=== PATIENT | male | born 1990 | race Caucasian/White ===

== ENCOUNTER 2017-08-30 12:42 | Inpatient (IN) | payer OTHER ==
--- NOTE | 2017-08-30 11:59 | HP ---
[facility]ER[facility] Rehab Assess/Revision - Admission History Admitted to Rehab from: [facility] Date of Admission to Rehab: 08/30/2017 - Vital signs Vital Signs: NOTED; STABLE. - Findings Detox History & Physical reviewed: Yes Concur with findings: Yes Comments/Additional Findings: PATIENT'S MEDICAL / MEDICATION HISTORY REVIEWED PRIOR TO DISCHARGE FROM DETOX UNIT. PATIENT WAS DISCHARGED FROM DETOX UNIT TO BE TAKEN OVER TO REHAB UNIT IN STABLE MEDICAL CONDITION. Inpatient Rehab Admission - Initial Determination Are CD services needed?: Yes Free of communicable disease: Yes Not in need of hospitalization: Yes - Rehab Admission Criteria Previous failed treatment: Yes Comorbidities: Yes Patient is meeting Inpatient Rehab admission criteria:: Yes
[~2017-08-30 12:42] MED LIST: LOPERAMIDE HCL 2 MG CAPSULE PO PRN; MAG HYDROX/AL HYDROX/SIMETH 30 ML UNIT-DOSE CUP PO PRN; MAGNESIUM CITRATE 300 ML BOTTLE PO PRN; MAGNESIUM HYDROX 2400MG/30ML ORAL SUSPENSION 30 ML CUP PO PRN; MENTHOL/PHENOL 1 EACH UD MM PRN; P-EPHED 60MG/TRIPROLIDI 2.5MG TABLET PO PRN
--- NOTE | 2017-08-30 14:01 | HP ---
Psychiatrist Admission - Data Date of interview: 08/30/17 Admission source: 3N Identifying data: This is the second 5N inpatient rehabilitation admission for this 27 year old male who is a single without children, currently homeless, unemployed and supported on food stamps. Medical History: Hepatitis C, withdrawal-related seizures and history of surgeries : cleft palate as an and tendon repair in right middle finger. Smokes cigarettes 20 a day. On MMTP 200 mg po daily. Psychiatric History: Patient reports his first psychiatric contact was in his childhood, was diagnosed as ADHD, treated with adderall and ritalin, first psychiatric hospitalization at age of 16 following suicidal attempt(slashed wrist) and admitted to [facility] in [place], reports 5-6 subsequent( Robyn Fajardo, hospitalizations with most recent "few months ago" to [facility] for 2 weeks to address depressed mood., past treatment with a number of medications celexa, abilify, gabapentin, seroquel, wellbutrin. Non- compliant with medications and aftercare, has no taking any medivations except of Xanax, reports he has insomnia and feels "exhausted, I need some sleeping aid ". States was diagnosed with anxiety and depression. Physical/Sexual Abuse/Trauma History: Denies history of sexual, physical and verbal abuse. Vital Signs: Vital Signs - 24 hr 08/30/17 13:08 Temperature 98.2 F Pulse Rate 68 Respiratory 18 Rate Blood Pressure 119/63 Allergies/Adverse Reactions: Allergies Allergy/AdvReac Type Severity Reaction Status Date / Time No Known Allergies Allergy Verified 08/30/17 13:27 Date of last physical exam: 08/28/17 Concur with the findings of this exam: Yes - Substance Abuse/Tx History Hx Alcohol Use: Yes (daily use 1-1,5 pint of vodka) Hx Substance Use: Yes (ecstasy 1-3 times last month) Substance Use Type: Cocaine (crack 1-2 gr daily), Tranquilizers (klonopin/xanax up to 10 mg) Hx Substance Use Treatment: Yes (several detox, 5[facility], [facility]) Mental Status Exam - Mental Status Exam Alert and Oriented to: Time, Place, Person Cognitive Function: Grossly Intact Patient Appearance: Well Groomed Mood: Withdrawn Affect: Mood Congruent, Blunted, Constricted Patient Behavior: Appropriate, Cooperative Speech Pattern: Appropriate Voice Loudness: Normal Thought Process: Goal Oriented Thought Disorder: Not Present Hallucinations: Denies Suicidal Ideation: Denies Homicidal Ideation: Denies Insight/Judgement: Fair Sleep: Poorly, Difficulty falling asleep Appetite: Fair Muscle strength/Tone: Normal Gait/Station: Normal Psychiatric Findings - Problem List ([place] 1, 2,3) (1) Cocaine dependence Current Visit: No Status: Acute Qualifiers: Substance use status: uncomplicated Qualified Code(s): F14.20 - Cocaine dependence, uncomplicated (2) Drug-induced mood disorder Current Visit: No Status: Acute (3) Insomnia Current Visit: No Status: Acute Qualifiers: Insomnia type: unspecified Qualified Code(s): G47.00 - Insomnia, unspecified (4) Nicotine dependence Current Visit: No Status: Acute Qualifiers: Nicotine product type: cigarettes Substance use status: uncomplicated Qualified Code(s): F17.210 - Nicotine dependence, cigarettes, uncomplicated (5) Benzodiazepine dependence Current Visit: No Status: Chronic (6) CELIA (generalized anxiety disorder) Current Visit: No Status: Chronic (7) Methadone maintenance therapy patient Current Visit: No Status: Chronic Comment: 200 mg, dose pending verification (8) Methamphetamine abuse Current Visit: No Status: Chronic - Initial Treatment Plan Initial Treatment Plan: Discussed indications/properties with the patient of Elavil 25 mg po hs, he agreed to start, will add, monitor porgress as needed.
[2017-08-30] MEDS: THIAMINE HCL 100 MG TABLET (FP) PO SCH (21:59)
[2017-08-30] MEDS: AMITRIPTYLINE HCL 25 MG TABLET (FP) PO SCH (21:59)
[2017-08-30] MEDS ORDERED: MELATONIN 5 MG TABLETS PO PRN (22:00)
[2017-08-31] MEDS: METHADONE HCL 40 MG DISPERSABLE TABLET PO SCH (06:13)
[2017-08-31] MEDS: IBUPROFEN 400 MG TABLET (FP) PO PRN ×2 (06:18→17:33)
[2017-08-31] MEDS: ACETAMINOPHEN 325 MG TABLET (FP) PO PRN (09:01)
[2017-08-31] MEDS: PRENATAL VITAMINS W/ FOLIC ACID TABLET (FP) PO SCH (09:02)
[2017-08-31] MEDS: NICOTINE POLACRILEX 2 MG GUM BUC PRN ×3 (09:03→21:46)
[2017-08-31] MEDS: NICOTINE 21 MG/24 HOURS TOPICAL PATCH TD SCH (09:05)
[2017-08-31] MEDS: guaiFENesin/D-METHORPHAN HB 10 ML UNIT-DOSE CUPS PO PRN (11:58)
[2017-08-31] MEDS: THIAMINE HCL 100 MG TABLET (FP) PO SCH (21:45)
[2017-08-31] MEDS: AMITRIPTYLINE HCL 25 MG TABLET (FP) PO SCH (21:45)
[2017-09-01] MEDS: METHADONE HCL 40 MG DISPERSABLE TABLET PO SCH (06:19)
[2017-09-01] MEDS: NICOTINE POLACRILEX 2 MG GUM BUC PRN ×5 (06:20→19:52)
[2017-09-01] MEDS: PRENATAL VITAMINS W/ FOLIC ACID TABLET (FP) PO SCH (09:27)
[2017-09-01] MEDS: NICOTINE 21 MG/24 HOURS TOPICAL PATCH TD SCH (09:27)
[2017-09-01] MEDS: IBUPROFEN 400 MG TABLET (FP) PO PRN (09:28)
[2017-09-01] MEDS: ACETAMINOPHEN 325 MG TABLET (FP) PO PRN (13:53)
[2017-09-01] MEDS: AMITRIPTYLINE HCL 25 MG TABLET (FP) PO SCH (21:46)
[2017-09-01] MEDS: THIAMINE HCL 100 MG TABLET (FP) PO SCH (21:46)
[2017-09-02] MEDS: METHADONE HCL 40 MG DISPERSABLE TABLET PO SCH (06:07)
[2017-09-02] MEDS: PRENATAL VITAMINS W/ FOLIC ACID TABLET (FP) PO SCH (11:00)
[2017-09-02] MEDS: NICOTINE 21 MG/24 HOURS TOPICAL PATCH TD SCH (11:00)
[2017-09-02] MEDS: NICOTINE POLACRILEX 2 MG GUM BUC PRN ×3 (11:03→22:00)
[2017-09-02] MEDS: IBUPROFEN 400 MG TABLET (FP) PO PRN (14:32)
[2017-09-02] MEDS: guaiFENesin/D-METHORPHAN HB 10 ML UNIT-DOSE CUPS PO PRN ×2 (14:34→22:00)
--- NOTE | 2017-09-02 15:34 | PN ---
[facility] Progress Note Note: Patient reports a partial response to Elavil 25 mg po hs, no side-effects reported, will increase to 50 mg po hs, continue to monitor progress.
[2017-09-02] MEDS: THIAMINE HCL 100 MG TABLET (FP) PO SCH (21:58)
[2017-09-02] MEDS: AMITRIPTYLINE HCL 25 MG TABLET (FP) PO SCH (21:58)
[2017-09-03] MEDS: METHADONE HCL 40 MG DISPERSABLE TABLET PO SCH (06:20)
[2017-09-03] MEDS: NICOTINE POLACRILEX 2 MG GUM BUC PRN ×3 (06:20→21:51)
[2017-09-03] MEDS: PRENATAL VITAMINS W/ FOLIC ACID TABLET (FP) PO SCH (10:29)
[2017-09-03] MEDS: NICOTINE 21 MG/24 HOURS TOPICAL PATCH TD SCH (10:29)
[2017-09-03] MEDS: IBUPROFEN 400 MG TABLET (FP) PO PRN ×2 (10:31→23:46)
--- NOTE | 2017-09-03 15:38 | PN ---
[facility] Progress Note Note: Patient c/o of nasal congestion and cough. Denies CP, SOB, vertigo. Vital Signs Temperature 98.2 F 09/03/17 06:52 Pulse Rate 62 09/03/17 06:52 Respiratory Rate 18 09/03/17 06:52 Blood Pressure 134/74 09/03/17 06:52 O2 Sat by Pulse Oximetry (%) Patient AOX 3, in no apparent distress + rhinorrhea + cough Lungs clear through out no adventitious breath sound Plan: increase fluids Flonase QD PRN Acetaminophen PRN Guafinessin DM PRN Continue to monitor
[2017-09-03] MEDS ORDERED: FLUTICASONE PROP 0.05% 16 GM NASAL SPRAY NS SCH (15:45)
[2017-09-03] MEDS ORDERED: COLLOIDAL OATMEAL 1 BAR EACH TP PRN (15:56)
[2017-09-03] MEDS: THIAMINE HCL 100 MG TABLET (FP) PO SCH (21:48)
[2017-09-03] MEDS: AMITRIPTYLINE HCL 25 MG TABLET (FP) PO SCH (21:48)
[2017-09-03] MEDS: guaiFENesin/D-METHORPHAN HB 10 ML UNIT-DOSE CUPS PO PRN (21:51)
[2017-09-04] MEDS: METHADONE HCL 40 MG DISPERSABLE TABLET PO SCH (06:16)
[2017-09-04] MEDS: NICOTINE POLACRILEX 2 MG GUM BUC PRN ×4 (06:27→22:20)
[2017-09-04] MEDS ORDERED: FLUTICASONE PROP 0.05% 16 GM NASAL SPRAY NS SCH (10:00)
[2017-09-04] MEDS: PRENATAL VITAMINS W/ FOLIC ACID TABLET (FP) PO SCH (10:32)
[2017-09-04] MEDS: NICOTINE 21 MG/24 HOURS TOPICAL PATCH TD SCH (10:32)
[2017-09-04] MEDS ORDERED: PT OWN MED DRAWER 7, Y5N ONE (10:41)
[2017-09-04] MEDS: MOMETASONE FUROATE 110 MCG/IH INHALER IH SCH ×2 (14:00→22:22)
[2017-09-04] MEDS: THIAMINE HCL 100 MG TABLET (FP) PO SCH (21:41)
[2017-09-04] MEDS: AMITRIPTYLINE HCL 25 MG TABLET (FP) PO SCH (21:41)
[2017-09-05] MEDS: NICOTINE POLACRILEX 2 MG GUM BUC PRN ×4 (06:16→22:11)
[2017-09-05] MEDS: METHADONE HCL 40 MG DISPERSABLE TABLET PO SCH (06:16)
[2017-09-05] MEDS: MOMETASONE FUROATE 110 MCG/IH INHALER IH SCH (10:41)
[2017-09-05] MEDS: PRENATAL VITAMINS W/ FOLIC ACID TABLET (FP) PO SCH (10:42)
[2017-09-05] MEDS: NICOTINE 21 MG/24 HOURS TOPICAL PATCH TD SCH (10:42)
[2017-09-05] MEDS: IBUPROFEN 400 MG TABLET (FP) PO PRN (14:12)
[2017-09-05] MEDS: AMITRIPTYLINE HCL 25 MG TABLET (FP) PO SCH (22:11)
[2017-09-05] MEDS: THIAMINE HCL 100 MG TABLET (FP) PO SCH (22:11)
[2017-09-06] MEDS: NICOTINE POLACRILEX 2 MG GUM BUC PRN ×4 (06:09→21:49)
[2017-09-06] MEDS: METHADONE HCL 40 MG DISPERSABLE TABLET PO SCH (06:10)
[2017-09-06] MEDS: NICOTINE 21 MG/24 HOURS TOPICAL PATCH TD SCH (10:17)
[2017-09-06] MEDS: PRENATAL VITAMINS W/ FOLIC ACID TABLET (FP) PO SCH (10:17)
[2017-09-06] MEDS: MOMETASONE FUROATE 110 MCG/IH INHALER IH SCH (10:17)
[2017-09-06] MEDS: IBUPROFEN 400 MG TABLET (FP) PO PRN (17:24)
[2017-09-06] MEDS: AMITRIPTYLINE HCL 25 MG TABLET (FP) PO SCH (21:49)
[2017-09-06] MEDS: THIAMINE HCL 100 MG TABLET (FP) PO SCH (21:49)
[2017-09-07] MEDS: METHADONE HCL 40 MG DISPERSABLE TABLET PO SCH (06:14)
[2017-09-07] MEDS: NICOTINE POLACRILEX 2 MG GUM BUC PRN ×4 (06:15→20:05)
[2017-09-07] MEDS: MOMETASONE FUROATE 110 MCG/IH INHALER IH SCH (10:20)
[2017-09-07] MEDS: PRENATAL VITAMINS W/ FOLIC ACID TABLET (FP) PO SCH (10:20)
[2017-09-07] MEDS: NICOTINE 21 MG/24 HOURS TOPICAL PATCH TD SCH (10:21)
[2017-09-07] MEDS: ACETAMINOPHEN 325 MG TABLET (FP) PO PRN (17:42)
[2017-09-07] MEDS: THIAMINE HCL 100 MG TABLET (FP) PO SCH (21:47)
[2017-09-07] MEDS: AMITRIPTYLINE HCL 25 MG TABLET (FP) PO SCH (21:47)
[2017-09-08] MEDS: NICOTINE POLACRILEX 2 MG GUM BUC PRN ×3 (06:10→21:51)
[2017-09-08] MEDS: METHADONE HCL 40 MG DISPERSABLE TABLET PO SCH (06:10)
[2017-09-08] MEDS: MOMETASONE FUROATE 110 MCG/IH INHALER IH SCH (10:21)
[2017-09-08] MEDS: NICOTINE 21 MG/24 HOURS TOPICAL PATCH TD SCH ×2 (10:21→10:22)
[2017-09-08] MEDS: PRENATAL VITAMINS W/ FOLIC ACID TABLET (FP) PO SCH (10:22)
[2017-09-08] MEDS: AMITRIPTYLINE HCL 25 MG TABLET (FP) PO SCH (21:49)
[2017-09-08] MEDS: THIAMINE HCL 100 MG TABLET (FP) PO SCH (21:50)
[2017-09-08] MEDS: IBUPROFEN 400 MG TABLET (FP) PO PRN (21:51)
[2017-09-09] MEDS: METHADONE HCL 40 MG DISPERSABLE TABLET PO SCH (06:10)
[2017-09-09] MEDS: NICOTINE POLACRILEX 2 MG GUM BUC PRN ×3 (06:10→21:57)
[2017-09-09] MEDS: MOMETASONE FUROATE 110 MCG/IH INHALER IH SCH (09:37)
[2017-09-09] MEDS: NICOTINE 21 MG/24 HOURS TOPICAL PATCH TD SCH (09:38)
[2017-09-09] MEDS: PRENATAL VITAMINS W/ FOLIC ACID TABLET (FP) PO SCH (09:40)
[2017-09-09] MEDS: ACETAMINOPHEN 325 MG TABLET (FP) PO PRN (15:50)
[2017-09-09] MEDS: AMITRIPTYLINE HCL 25 MG TABLET (FP) PO SCH (21:55)
[2017-09-09] MEDS: THIAMINE HCL 100 MG TABLET (FP) PO SCH (21:56)
[2017-09-10] MEDS: METHADONE HCL 40 MG DISPERSABLE TABLET PO SCH (06:05)
[2017-09-10] MEDS: NICOTINE POLACRILEX 2 MG GUM BUC PRN ×4 (06:06→21:41)
[2017-09-10] MEDS: MOMETASONE FUROATE 110 MCG/IH INHALER IH SCH (10:34)
[2017-09-10] MEDS: NICOTINE 21 MG/24 HOURS TOPICAL PATCH TD SCH (10:35)
[2017-09-10] MEDS: PRENATAL VITAMINS W/ FOLIC ACID TABLET (FP) PO SCH (10:35)
[2017-09-10] MEDS: THIAMINE HCL 100 MG TABLET (FP) PO SCH (21:40)
[2017-09-10] MEDS: AMITRIPTYLINE HCL 25 MG TABLET (FP) PO SCH (21:40)
[2017-09-11] MEDS: METHADONE HCL 40 MG DISPERSABLE TABLET PO SCH (06:22)
[2017-09-11] MEDS: NICOTINE POLACRILEX 2 MG GUM BUC PRN ×4 (06:23→21:44)
[2017-09-11] MEDS: PRENATAL VITAMINS W/ FOLIC ACID TABLET (FP) PO SCH (09:35)
[2017-09-11] MEDS: MOMETASONE FUROATE 110 MCG/IH INHALER IH SCH (09:35)
[2017-09-11] MEDS: NICOTINE 21 MG/24 HOURS TOPICAL PATCH TD SCH (09:41)
[2017-09-11] MEDS: AMITRIPTYLINE HCL 25 MG TABLET (FP) PO SCH (21:44)
[2017-09-11] MEDS: THIAMINE HCL 100 MG TABLET (FP) PO SCH (21:44)
[2017-09-12] MEDS: METHADONE HCL 40 MG DISPERSABLE TABLET PO SCH (06:33)
[2017-09-12] MEDS: NICOTINE POLACRILEX 2 MG GUM BUC PRN ×4 (06:34→22:07)
[2017-09-12] MEDS: PRENATAL VITAMINS W/ FOLIC ACID TABLET (FP) PO SCH (09:33)
[2017-09-12] MEDS: NICOTINE 21 MG/24 HOURS TOPICAL PATCH TD SCH (09:33)
[2017-09-12] MEDS: MOMETASONE FUROATE 110 MCG/IH INHALER IH SCH (09:34)
[2017-09-12] MEDS: THIAMINE HCL 100 MG TABLET (FP) PO SCH (22:06)
[2017-09-12] MEDS: AMITRIPTYLINE HCL 25 MG TABLET (FP) PO SCH (22:07)
[2017-09-13] MEDS ORDERED: METHADONE HCL 40 MG DISPERSABLE TABLET PO ONE (06:23)
[2017-09-13] MEDS ORDERED: METHADONE PO ONE (06:30)
[2017-09-13] MEDS: NICOTINE POLACRILEX 2 MG GUM BUC PRN ×2 (06:37→10:13)
[2017-09-13 07:12] VITALS: BP 122/74; PULSE 73; TEMP 97.8
[2017-09-13] MEDS: NICOTINE 21 MG/24 HOURS TOPICAL PATCH TD SCH (10:11)
[2017-09-13] MEDS: PRENATAL VITAMINS W/ FOLIC ACID TABLET (FP) PO SCH (10:12)
[2017-09-13] MEDS: IBUPROFEN 400 MG TABLET (FP) PO PRN (10:12)
[2017-09-13] MEDS: MOMETASONE FUROATE 110 MCG/IH INHALER IH SCH (10:13)
--- NOTE | 2017-09-13 10:23 | PN ---
Psychiatric Progress Note Vital Signs: Vital Signs Period Temp Pulse Resp BP Sys/Mustafa Pulse Ox Last 24 Hr 97.8 F 73 16-16 122/74 Date of Session: 09/13/17 Chief Complaint:: discharge visit HPI: Patient has addressed cocaine, benzo, opioid, methamphetamine use comorbid CELIA, drug induced mood siorder, insomnia. Current Medications: Active Medications Generic Name Dose Route Start Last Admin Trade Name Freq PRN Reason Stop Dose Admin Al Hydroxide/Mg Hydroxide 30 ml 08/30/17 11:55 Mylanta Oral Suspension - PO Q6H PRN DYSPEPSIA Amitriptyline HCl 50 mg 09/02/17 22:00 09/12/17 22:07 Elavil - PO Not Given HS CASANDRA Colloidal Oatmeal 1 applic 09/03/17 15:56 09/04/17 21:42 Aveeno Soap - TP 1 applic DAILY PRN Administration HYGEINE Eucalyptus/Menthol/Phenol/Sorbitol 1 each 08/30/17 11:55 Cepastat Lozenge - MM Q4H PRN SORE THROAT Guaifenesin 10 ml 08/30/17 11:55 09/03/17 21:51 Robitussin Dm - PO 10 ml Q6H PRN Administration COUGH Ibuprofen 400 mg 08/30/17 11:55 09/13/17 10:12 Motrin - PO 400 mg Q6H PRN Administration Pain Level 4-6 Loperamide HCl 4 mg 08/30/17 11:55 Imodium - PO Q6H PRN DIARRHEA Magnesium Citrate 300 ml 08/30/17 11:55 Citroma - PO Q48H PRN CONSTIPATION Magnesium Hydroxide 30 ml 08/30/17 11:55 Milk Of Magnesia - PO DAILY PRN CONSTIPATION Melatonin 5 mg 08/30/17 22:00 Melatonin PO HS PRN INSOMNIA Mometasone Furoate 1 puff 09/04/17 10:00 09/13/17 10:13 Asmanex 110mcg - IH 1 puff DAILY CASANDRA Administration Nicotine 21 mg 08/31/17 10:00 09/13/17 10:11 Nicoderm Patch - TD Not Given DAILY CASANDRA Nicotine Polacrilex 2 mg 08/30/17 11:55 09/13/17 10:13 Nicorette Gum - BUC 2 mg Q2H PRN Administration NICOTINE REPLACEMENT RX Multivit/Folic Acid/Iron 1 tab 08/31/17 10:00 09/13/17 10:12 Vitamins (Sjr) - PO 1 tab DAILY CASANDRA Administration Pseudoephedrine/Triprolidine 1 combo 08/30/17 11:55 Actifed - PO TID PRN NASAL CONGESTION Thiamine HCl 100 mg 08/30/17 22:00 09/12/17 22:06 Vitamin B1 - PO 100 mg HS CASANDRA Administration Current Side Effect: No Lab tests ordered: No Lab tests reviewed: Yes Provider note:: Patient has completed today this program and met his identified goals, will continue to address his issues at [facility], hegained insights into importance of changning attitudes and utilize all supports availbal to prevent relapses, patient responded well to medication management, his sleep is improved and he is less anxious, no side-effects reported, script for Elavil 50 mg po hs provided, stable for discharge today. Total face to face time:: 25 Mental Status Exam - Mental Status Exam Alert and Oriented to: Time, Place, Person Cognitive Function: Good Patient Appearance: Well Groomed Mood: Hopeful Affect: Appropriate, Mood Congruent Patient Behavior: Appropriate, Cooperative Speech Pattern: Clear, Appropriate Voice Loudness: Normal Thought Process: Intact, Goal Oriented Thought Disorder: Not Present Hallucinations: Denies Suicidal Ideation: Denies Homicidal Ideation: Denies Insight/Judgement: Fair Sleep: Well Appetite: Good Muscle strength/Tone: Normal Gait/Station: Normal Psychiatric Treatment Plan - Problem List (1) Cocaine dependence Current Visit: No Qualifiers: Substance use status: uncomplicated Qualified Code(s): F14.20 - Cocaine dependence, uncomplicated (2) Drug-induced mood disorder Current Visit: No (3) Insomnia Current Visit: No Qualifiers: Insomnia type: unspecified Qualified Code(s): G47.00 - Insomnia, unspecified (4) Nicotine dependence Current Visit: No Qualifiers: Nicotine product type: cigarettes Substance use status: uncomplicated Qualified Code(s): F17.210 - Nicotine dependence, cigarettes, uncomplicated (5) Benzodiazepine dependence Current Visit: No (6) CELIA (generalized anxiety disorder) Current Visit: No (7) Methadone maintenance therapy patient Current Visit: No Comment: 200 mg, dose pending verification (8) Methamphetamine abuse Current Visit: No
== END 2017-09-13 11:05 | disposition home or self-care (01) | DRG 772 ==
LOC: YASAS 12:42 → Y5N 12:43
PROVIDERS: ADMIT Psychiatry & Neurology Psychiatry; ATTEND Psychiatry & Neurology Psychiatry
PROC: HZ42ZZZ Group Counseling for Substance Abuse Treatment, Cognitive-Behavioral (ICD-10-PCS; principal; 2017-08-30)
DX: F11.20 Opioid dependence, uncomplicated (principal); F13.20 Sedative, hypnotic or anxiolytic dependence, uncomplicated; F14.20 Cocaine dependence, uncomplicated; F15.10 Other stimulant abuse, uncomplicated; F41.1 Generalized anxiety disorder; F19.24 Other psychoactive substance dependence with psychoactive substance-induced mood disorder; G47.00 Insomnia, unspecified

== ENCOUNTER 2018-06-28 10:23 | Inpatient (IN) | payer OTHER ==
[2018-06-28 11:38] VITALS: BMI 23.3
--- NOTE | 2018-06-28 12:59 | HP ---
"CIWA Score Nausea/Vomitin Muscle Tremors: 4-Moderate,w/Arms Extend Anxiety: 4-Mod. Anxious/Guarded Agitation: 2 Paroxysmal Sweats: 1-Minimal Palms Moist Orientation: 0-Oriented Tacttile Disturbances: 1-Very Mild Itch/Numbness Auditory Disturbances: 0-None Visual Disturbances: 0-None Headache: 1-Very Mild CIWA-Ar Total Score: 15 - Admission Criteria OASAS Guidelines: Admission for Medically Managed Detox: Requires at least one of the followin. CIWA greater than 12 2. Seizures within the past 24 hours 3. Delirium tremens within the past 24 hours 4. Hallucinations within the past 24 hours 5. Acute intervention needed for co occurring medical disorder 6. Acute intervention needed for co occurring psychiatric disorder 7. Severe withdrawal that cannot be handled at a lower level of care (continued vomiting, continued diarrhea, abnormal vital signs) requiring intravenous medication and/or fluids 8. Patient presents the following: CIWA greater than 12 Admission Criteria Met: Admission criteria met Admission ROS [facility] Chief Complaint: I have to do this for me, and the baby, my little girl. Allergies/Adverse Reactions: Allergies Allergy/AdvReac Type Severity Reaction Status Date / Time No Known Allergies Allergy Verified 06/28/18 13:36 History of Present Illness: 28 yo gentleman here for detox from alcohol/benzos - alternates depending on what he can get. History of seizure several days ago. His girlfriend is seven months with his first child. He was last here in 2017 and states he has not been in detox since then. History of black outs. Of note is his left hand. Patient states he has had this problem for several months and no one has diagnosed it's cause. He went to [place] ED in February - had blisters on his fingers - did not know what it was - thought trejo - they were lanced and he gave patient antibiotics - a five day course of zithromax - the fingers got a bit better and then flared up as blisters again - patient drains them with a sterilized sewing needle - now has bloody/oozy areas on his index finger, thumb and middle finger - sometimes ring finger and palm. The hand is sore, painful, gets swollen on and off - he has not followed up anywhere. Per NASREEN was last prescribed alprazolam 04/17/19: Search Terms: david galeana, 1990 Search Date: 06/28/2018 01:15:53 PM The Drug Utilization Report below displays all of the controlled substance prescriptions, if any, that your patient has filled in the last twelve months. The information displayed on this report is compiled from pharmacy submissions to the Department, and accurately reflects the information as submitted by the pharmacies. This report was requested by: Stephanie Tuttle | Reference #: [id number] Others' Prescriptions Patient Name: David Galeana Date: 1990 Address: [address] [place] [address] Sex: Male Rx Written Rx Dispensed Drug Quantity Days Supply Prescriber Name 04/17/2018 04/17/2018 alprazolam 2 mg tablet 30 15 MD Sabina , Anton 12/19/2017 12/19/2017 alprazolam 2 mg tablet 60 30 MD Sabina , Anton 11/14/2017 11/14/2017 clonazepam 2 mg tablet 60 30 MD Sabina , Anton 09/13/2017 09/13/2017 alprazolam 2 mg tablet 60 30 MD Sabina , Anton 08/13/2017 08/13/2017 acetaminophen-cod #3 tablet 24 5 MD Muhammad Mario Patient Name: David Galeana Date: 1990 Address: [address] [place] [address] Sex: Male Rx Written Rx Dispensed Drug Quantity Days Supply Prescriber Name 03/20/2018 03/20/2018 alprazolam 2 mg tablet 60 30 MD Sabina , Anton 02/14/2018 02/17/2018 alprazolam 2 mg tablet 60 30 MD Sabina , Anton 01/21/2018 01/21/2018 alprazolam 2 mg tablet 50 25 MD Sabina , Anton 01/17/2018 01/17/2018 alprazolam 2 mg tablet 10 5 ColantoniElijah fuentes 08/12/2017 08/12/2017 alprazolam 2 mg tablet 60 30 MD Sabina , Anton 07/15/2017 07/15/2017 clonazepam 2 mg tablet 60 30 MD Muhammad Mario Patient Name: David Galeana Date: 1990 Address: [address] [place] [address] Sex: Male Rx Written Rx Dispensed Drug Quantity Days Supply Prescriber Name 10/04/2017 10/07/2017 alprazolam 1 mg tablet 21 7 Ashlyn Ferrer) Exam Limitations: No Limitations - Ebola screening Have you traveled outside of the country in the last 21 days: No (N) Have you had contact with anyone from an Ebola affected area: No Have you been sick,other than usual withdrawal symptoms: No Do you have a fever: No - Review of Systems Constitutional: Loss of Appetite, Malaise, Night Sweats, Changes in sleep, Weakness EENT: reports: Blurred Vision Respiratory: reports: No Symptoms reported Cardiac: reports: No Symptoms Reported GI: reports: Nausea, Poor Appetite, Abdominal cramping : reports: No Symptoms Reported Musculoskeletal: reports: No Symptoms Reported Integumentary: reports: Other (left hand oozing open blistered areas on hand) Neuro: reports: Headache, Tremors Endocrine: reports: No Symptoms Reported Hematology: reports: No Symptoms Reported Psychiatric: reports: Judgement Intact, Mood/Affect Appropiate, Orientated x3, Anxious Other Systems: Reviewed and Negative Patient History - Patient Medical History Hx Anemia: No Hx Asthma: No Hx Chronic Obstructive Pulmonary Disease (COPD): No Hx Cancer: No Hx Cardiac Disorders: No Hx Congestive Heart Failure: No Hx Hypertension: No Hx Hypercholesterolemia: No Hx Pacemaker: No HX Cerebrovascular Accident: No Hx Seizures: Yes (drug related - 06/24/18) Hx Dementia: No Hx Diabetes: No Hx Gastrointestinal Disorders: No Hx Liver Disease: Yes (Hep C ) Hx Genitourinary Disorders: No Hx Sexually Transmitted Disorders: No Hx Renal Disease (ESRD): No Hx Thyroid Disease: No Hx Human Immunodeficiency Virus (HIV): No Hx Hepatitis C: Yes (untreated) Hx Depression: Yes (no meds) Hx Suicide Attempt: Yes (cut wrist 02/2019; also age 17) Hx Bipolar Disorder: No Hx Schizophrenia: No - Patient Surgical History Past Surgical History: Yes Hx Neurologic Surgery: No Hx Cataract Extraction: No Hx Cardiac Surgery: No Hx Lung Surgery: No Hx Breast Surgery: No Hx Breast Biopsy: No Hx Abdominal Surgery: No Hx Appendectomy: No Hx Cholecystectomy: No Hx Genitourinary Surgery: No Hx Section: No Hx Orthopedic Surgery: Yes (TENDON REPAIR ON RT MIDDLE FINGER) Other Surgical History: Surgery for cleft lip as . Anesthesia Reaction: No - PPD History Previous Implant?: Yes Documented Results: Negative w/proof Implanted On Prior [facility] Admission?: Yes Date: 08/29/17 Results: 0 mm. PPD to be Administered?: No - Reproductive History Patient is a Female of Child Bearing Age (11 -55 yrs old): No (male) - Smoking Cessation Smoking history: Current every day smoker Have you smoked in the past 12 months: Yes Aproximately how many cigarettes per day: 20 Cigars Per Day: 0 Hx Chewing Tobacco Use: No Initiated information on smoking cessation: Yes 'Breaking Loose' booklet given: 06/28/18 (give on floor) - Substance & Tx. History Hx Alcohol Use: Yes Hx Substance Use: Yes Substance Use Type: Alcohol, Cocaine, Heroin Hx Substance Use Treatment: Yes (detox, rehab, methadone ) - Substances Abused alcohol Route: Oral Frequency: Daily Amount used: 1/2 pint, Age of first use: 23 Date of Last Use: 06/27/18 alprazolam Route: Oral Frequency: Daily Amount used: 12 mg Age of first use: 17 Date of Last Use: 06/27/18 cocaine Route: Smoking Frequency: 3-6 times per week Amount used: 5 dimes of crack Age of first use: 16 Date of Last Use: 06/26/18 Family Disease History - Family Disease History Family Disease History: Other: Father (unknown, etoh), Mother (alive, Hyperlipidemia ), Brother (alive, alcohol , hep c) Admission Physical Exam S - Vital Signs Vital Signs: Vital Signs - 24 hr 06/28/18 11:31 Temperature 96 F L Pulse Rate 58 L Respiratory 18 Rate Blood Pressure 102/78 - Physical General Appearance: Yes: Nourished, Appropriately Dressed, Moderate Distress, Tremorous, Irritable, Anxious HEENTM: Yes: Hearing grossly Normal, Normocephalic, Normal Voice, Pharynx Normal Respiratory: Yes: Normal Breath Sounds, No Respiratory Distress Neck: Yes: No masses,lesions,Nodules Breast: Yes: Breast Exam Deferred Cardiology: Yes: Regular Rhythm, Regular Rate Abdominal: Yes: Flat Genitourinary: Yes: Frequency Back: Yes: Normal Inspection Musculoskeletal: Yes: full range of Motion, Gait Steady, Other (left hand with some functional limitation due to hx of tendon injury) Extremities: Yes: Normal Inspection, Normal Range of Motion, Non-Tender Neurological: Yes: Fully Oriented, Alert, Motor Strength 5/5, Normal Mood/Affect , Normal Response, Numbness Integumentary: Yes: Normal Color, Warm, Other (left hand: bloody/oozy open areas on his index finger, thumb and middle finger -sometimes ring finger and palm) Lymphatic: Yes: Within Normal Limits - Diagnostic (1) Alcohol dependence with uncomplicated withdrawal Current Visit: Yes Status: Chronic (2) Sedative, hypnotic or anxiolytic abuse, uncomplicated Current Visit: Yes Status: Chronic (3) Cocaine dependence Current Visit: Yes Status: Acute Qualifiers: Substance use status: uncomplicated Qualified Code(s): F14.20 - Cocaine dependence, uncomplicated (4) Dehydration Current Visit: Yes Status: Acute (5) Nicotine dependence Current Visit: Yes Status: Acute Qualifiers: Nicotine product type: cigarettes Substance use status: uncomplicated Qualified Code(s): F17.210 - Nicotine dependence, cigarettes, uncomplicated (6) Weight loss Current Visit: Yes Status: Acute (7) Hepatitis C Current Visit: Yes Status: Chronic Qualifiers: Viral hepatitis chronicity: chronic Hepatic coma status: without hepatic coma Qualified Code(s): B18.2 - Chronic viral hepatitis C (8) Methadone maintenance therapy patient Current Visit: Yes Status: Chronic Comment: 200 mg, [facility] [phone] (9) Blister of fingers, infected Current Visit: Yes Status: Chronic Qualifiers: Encounter type: initial encounter Qualified Code(s): S60.429A - Blister ( nonthermal) of unspecified finger, initial encounter; L08.9 - Local infection of the skin and subcutaneous tissue, unspecified Cleared for Admission [facility] - Detox or Rehab S Level of Care: Medically Managed Detox Regimen/Protocol: Valium S Breath Alcohol Content Breath Alcohol Content: 0 Urine Drug Screen - Results Drug Screen Negative: No Urine Drug Screen Results: ANETTE-Cocaine, BZO-Benzodiazepines, MTD-Methadone Inpatient Rehab Admission - Rehab Decision to Admit Inpatient rehab admission?: No"
[2018-06-28] MEDS ORDERED: MENTHOL/PHENOL 1 EACH UD MM PRN (13:21)
[2018-06-28] MEDS ORDERED: guaiFENesin/D-METHORPHAN HB 10 ML UNIT-DOSE CUPS PO PRN (13:21)
[2018-06-28] MEDS ORDERED: MAG HYDROX/AL HYDROX/SIMETH 30 ML UNIT-DOSE CUP PO PRN (13:21)
[2018-06-28] MEDS ORDERED: MAGNESIUM HYDROX 2400MG/30ML ORAL SUSPENSION 30 ML CUP PO PRN (13:21)
[2018-06-28] MEDS ORDERED: LOPERAMIDE HCL 2 MG CAPSULE PO PRN (13:21)
[2018-06-28] MEDS ORDERED: IBUPROFEN 400 MG TABLET (FP) PO PRN (13:21)
[2018-06-28] MEDS ORDERED: ACETAMINOPHEN 325 MG TABLET (FP) PO PRN (13:21)
[2018-06-28] MEDS ORDERED: P-EPHED 60MG/TRIPROLIDI 2.5MG TABLET PO PRN (13:21)
[2018-06-28] MEDS ORDERED: MAGNESIUM CITRATE 300 ML BOTTLE PO PRN (13:21)
[2018-06-28] MEDS ORDERED: diazePAM 5 MG TABLET PO ONE (14:15)
[2018-06-28] MEDS: SILVER SULFADIAZINE 1% TOP CREAM 50 GM JAR TP SCH (15:40)
[2018-06-28] MEDS: NICOTINE POLACRILEX 4 MG GUM BUC PRN ×3 (17:00→22:31)
[2018-06-28] MEDS: diazePAM 5 MG TABLET PO PRN (20:14)
[2018-06-28] MEDS: THIAMINE HCL 100 MG TABLET (FP) PO SCH (22:30)
[2018-06-28] MEDS: diazePAM 5 MG TABLET PO SCH (22:30)
[2018-06-29] MEDS: diazePAM 5 MG TABLET PO PRN ×4 (03:31→20:26)
[2018-06-29] MEDS: diazePAM 5 MG TABLET PO SCH ×3 (05:48→22:12)
[2018-06-29] MEDS ORDERED: METHADONE HCL 40 MG DISPERSABLE TABLET PO ONE (06:00)
[2018-06-29] MEDS ORDERED: METHADONE HCL 10 MG TABLET PO SCH (06:00)
[2018-06-29] MEDS: PRENATAL VITAMINS W/ FOLIC ACID TABLET (FP) PO SCH (09:22)
[2018-06-29] MEDS: SILVER SULFADIAZINE 1% TOP CREAM 50 GM JAR TP SCH (09:24)
[2018-06-29] MEDS: NICOTINE POLACRILEX 4 MG GUM BUC PRN ×5 (09:27→22:43)
--- NOTE | 2018-06-29 09:46 | CONSULT ---
[facility] Psychiatric Consult - Data Date of interview: 06/29/18 Admission source: Self-referred Identifying data: Mr Galeana is a 28 years old smarried male, unemployedreceiving food stamp, domiciled
[2018-06-29 10:23] LABS: HEMATOCRIT 33.1 % (35.4-49); HEMOGLOBIN 11.5 GM/dL (11.7-16.9); MCH 29.6 pg (25.7-33.7); MCHC 34.6 g/dl (32.0-35.9); MEAN CELL VOLUME 85.6 fl (80-96); PLATELET COUNT 171 K/MM3 (134-434); RBC 3.87 M/mm3 (4.00-5.60); RDW 12.9 % (11.9-15.9); WHITE BLOOD COUNT 5.3 K/mm3 (4.0-10.0)
[2018-06-29 10:26] LABS: ALK PHOS 82 U/L (45-117); ANION GAP 7 MMOL/L (8-16); BILIRUBIN,TOTAL 0.3 mg/dL (0.2-1); BLOOD UREA NITROGEN 20 mg/dL (7-18); CALCIUM 8.8 mg/dL (8.5-10.1); CHLORIDE 105 mmol/L (98-107); CO2 30 mmol/L (21-32); CREATININE 0.9 mg/dL (0.55-1.3); GLUCOSE,RANDOM 124 mg/dL (74-106); POTASSIUM 4.3 mmol/L (3.5-5.1); SGOT/AST 220 U/L (15-37); SGPT/ALT 175 U/L (13-61); SODIUM 141 mmol/L (136-145); TOT PROT 5.7 g/dl (6.4-8.2)
--- NOTE | 2018-06-29 14:21 | PN ---
S Progress Note Note: Patient was very sedated and could not stay awake long enough for an appropriate interview. Reconsult when patient is more appropriate
--- NOTE | 2018-06-29 16:11 | PN ---
S CIWA - CIWA Score Nausea/Vomitin-Mild Nausea/No Vomiting Muscle Tremors: 3 Anxiety: 2 Agitation: 3 Paroxysmal Sweats: 1-Minimal Palms Moist Orientation: 1-Uncertain about Date Tacttile Disturbances: 0-None Auditory Disturbances: 0-None Visual Disturbances: 0-None Headache: 1-Very Mild CIWA-Ar Total Score: 12 [facility] Progress Note (SOAP) Subjective: tremor sweating irritable agitative left hand skin peeling after injured x 3 -4 months ago treated at ER patient refuses wrap the hand after silver cream discuss the benefits of wrap the hand with cling avoid irritation keep dressing clean and dry Objective: 06/29/18 16:10 Vital Signs Temperature 96.5 F L 06/29/18 13:38 Pulse Rate 60 06/29/18 13:38 Respiratory Rate 18 06/29/18 13:38 Blood Pressure 121/62 06/29/18 13:38 O2 Sat by Pulse Oximetry (%) Laboratory Last Values WBC 5.3 K/mm3 (4.0-10.0) 06/29/18 07:45 RBC 3.87 M/mm3 (4.00-5.60) L 06/29/18 07:45 Hgb 11.5 GM/dL (11.7-16.9) L 06/29/18 07:45 Hct 33.1 % (35.4-49) L 06/29/18 07:45 MCV 85.6 fl (80-96) 06/29/18 07:45 MCH 29.6 pg (25.7-33.7) 06/29/18 07:45 MCHC 34.6 g/dl (32.0-35.9) 06/29/18 07:45 RDW 12.9 % (11.9-15.9) 06/29/18 07:45 Plt Count 171 K/MM3 (134-434) D 06/29/18 07:45 MPV 10.0 fl (7.5-11.1) 06/29/18 07:45 Sodium 141 mmol/L (136-145) 06/29/18 07:45 Potassium 4.3 mmol/L (3.5-5.1) 06/29/18 07:45 Chloride 105 mmol/L (98-107) 06/29/18 07:45 Carbon Dioxide 30 mmol/L (21-32) 06/29/18 07:45 Anion Gap 7 MMOL/L (8-16) L 06/29/18 07:45 BUN 20 mg/dL (7-18) H 06/29/18 07:45 Creatinine 0.9 mg/dL (0.55-1.3) 06/29/18 07:45 Creat Clearance w eGFR > 60 (>60) 06/29/18 07:45 Random Glucose 124 mg/dL (74-106) H 06/29/18 07:45 Calcium 8.8 mg/dL (8.5-10.1) 06/29/18 07:45 Total Bilirubin 0.3 mg/dL (0.2-1) 06/29/18 07:45 AST 220 U/L (15-37) H 06/29/18 07:45 ALT 175 U/L (13-61) H 06/29/18 07:45 Alkaline Phosphatase 82 U/L (45-117) 06/29/18 07:45 Total Protein 5.7 g/dl (6.4-8.2) L 06/29/18 07:45 Albumin 3.0 g/dl (3.4-5.0) L 06/29/18 07:45 RPR Titer Nonreactive (NONREACTIVE) 06/29/18 07:45 ast elevation lab noted repeat ast patient preferred continue to use valium as detox regimen 06/29/18 16:11 Assessment: 06/29/18 16:11 withdrawal sx Plan: continue detox strong recommend warp the left hand after silver cream
[2018-06-29] MEDS: THIAMINE HCL 100 MG TABLET (FP) PO SCH (22:12)
[2018-06-30] MEDS: diazePAM 5 MG TABLET PO PRN ×4 (01:02→17:11)
[2018-06-30] MEDS: NICOTINE POLACRILEX 4 MG GUM BUC PRN ×7 (05:22→22:19)
[2018-06-30] MEDS: METHADONE HCL 40 MG DISPERSABLE TABLET PO SCH (09:00)
--- NOTE | 2018-06-30 10:15 | PN ---
S CIWA - CIWA Score Nausea/Vomitin-No Nausea/No Vomiting Muscle Tremors: 3 Anxiety: 2 Agitation: 1-Slight > Activity Paroxysmal Sweats: 1-Minimal Palms Moist Orientation: 0-Oriented Tacttile Disturbances: 0-None Auditory Disturbances: 0-None Visual Disturbances: 0-None Headache: 2-Mild CIWA-Ar Total Score: 9 S Progress Note (SOAP) Subjective: tremor sweating sleep better at night social with peers in day room, Objective: 06/30/18 10:14 Vital Signs Temperature 98.0 F 06/30/18 09:28 Pulse Rate 75 06/30/18 09:28 Respiratory Rate 18 06/30/18 09:28 Blood Pressure 107/66 06/30/18 09:28 O2 Sat by Pulse Oximetry (%) Laboratory Last Values WBC 5.3 K/mm3 (4.0-10.0) 06/29/18 07:45 RBC 3.87 M/mm3 (4.00-5.60) L 06/29/18 07:45 Hgb 11.5 GM/dL (11.7-16.9) L 06/29/18 07:45 Hct 33.1 % (35.4-49) L 06/29/18 07:45 MCV 85.6 fl (80-96) 06/29/18 07:45 MCH 29.6 pg (25.7-33.7) 06/29/18 07:45 MCHC 34.6 g/dl (32.0-35.9) 06/29/18 07:45 RDW 12.9 % (11.9-15.9) 06/29/18 07:45 Plt Count 171 K/MM3 (134-434) D 06/29/18 07:45 MPV 10.0 fl (7.5-11.1) 06/29/18 07:45 Sodium 141 mmol/L (136-145) 06/29/18 07:45 Potassium 4.3 mmol/L (3.5-5.1) 06/29/18 07:45 Chloride 105 mmol/L (98-107) 06/29/18 07:45 Carbon Dioxide 30 mmol/L (21-32) 06/29/18 07:45 Anion Gap 7 MMOL/L (8-16) L 06/29/18 07:45 BUN 20 mg/dL (7-18) H 06/29/18 07:45 Creatinine 0.9 mg/dL (0.55-1.3) 06/29/18 07:45 Creat Clearance w eGFR > 60 (>60) 06/29/18 07:45 Random Glucose 124 mg/dL (74-106) H 06/29/18 07:45 Calcium 8.8 mg/dL (8.5-10.1) 06/29/18 07:45 Total Bilirubin 0.3 mg/dL (0.2-1) 06/29/18 07:45 AST 220 U/L (15-37) H 06/29/18 07:45 ALT 175 U/L (13-61) H 06/29/18 07:45 Alkaline Phosphatase 82 U/L (45-117) 06/29/18 07:45 Total Protein 5.7 g/dl (6.4-8.2) L 06/29/18 07:45 Albumin 3.0 g/dl (3.4-5.0) L 06/29/18 07:45 RPR Titer Nonreactive (NONREACTIVE) 06/29/18 07:45 06/30/18 10:15 repeat ast pending lab noted patient preferred valium detox regimen Assessment: 06/30/18 10:16 withdrawal sx Plan: continue detox
[2018-06-30] MEDS: PRENATAL VITAMINS W/ FOLIC ACID TABLET (FP) PO SCH (10:24)
[2018-06-30] MEDS: diazePAM 5 MG TABLET PO SCH ×2 (10:24→22:18)
[2018-06-30] MEDS: SILVER SULFADIAZINE 1% TOP CREAM 50 GM JAR TP SCH (10:25)
--- NOTE | 2018-06-30 12:38 | CONSULT ---
[facility] Psychiatric Consult - Data Date of interview: 06/30/18 Admission source: [facility] Identifying data: This is one of multiple admissions to [facility] for this 28 y/ o male undergoing detoxification (alcohol, cocaine, xanax, heroin). Examined on [address] [place]. 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 Substance Abuse History: Confirmed by patient in this interview. [facility] : Smoking history: Current every day smoker. Have you smoked in the past 12 months: Yes. Aproximately how many cigarettes per day: 20. Cigars Per Day: 0. Hx Chewing Tobacco Use: No. Initiated information on smoking cessation: Yes. 'Breaking Loose' booklet given: 06/28/18 (give on floor ). - Substance & Tx. History. Hx Alcohol Use: Yes. Hx Substance Use: Yes. Substance Use Type: Alcohol, Cocaine, Heroin. Hx Substance Use Treatment: Yes ( detox, rehab, methadone ). - Substances Abused. alcohol. Route: Oral. Frequency: Daily. Amount used: 1/2 pint,. Age of first use: 23. Date of Last Use: 06/27/18. alprazolam. Route: Oral. Frequency: Daily. Amount used: 12 mg. Age of first use: 17. Date of Last Use: 06/27/18. cocaine. Route: Smoking. Frequency: 3-6 times per week. Amount used: 5 dimes of crack. Age of first use: 16. Date of Last Use: 06/26/18 Medical History: Remarkable for hepatitis C, withdrawal-related seizures ( history) and a distant antecedent of surgeries (cleft palate as an infant + tendon repair in right middle finger). Psychiatric History: History of 3-5 psychiatric hospitalizations ([facility], [facility], [facility]). Patient endorses several diagnoses (MDD, Anxiety Disorder, ADHD). Onset of emotional disturbances occurred at age 14 (diganosed at the time with ADHD and treated with psychostimulants : ritalin and adderall). Mr Galeana has received trials of various medications that include citalopram, aripriprazole, clonazepam, gabapentin, bupropion, quetiapine, paroxetine and buspirone. Chronically non- adherent to OPD care. Lost to follow-up for several months (with the exception of MMTP). The patient is on methadone maintenance (200 mg/day) at the [facility] M[facility] program in [facility]. Presents with a history of multiple suicide attempts (wrist-cutting in 2018 + overdose with acetaminophen at age 17) . Physical/Sexual Abuse/Trauma History: No reported history of abuse. Additional Comment: Urine Drug Screen Results: ANETTE-Cocaine, BZO-Benzodiazepines , MTD-Methadone. Noted. Mental Status Exam - Mental Status Exam Alert and Oriented to: Time, Place, Person Cognitive Function: Good Patient Appearance: Unkempt (scar located on left wrist, the result of self- mutilation ; blisters seen on fingers of left hand), Disheveled Mood: Withdrawn, Anxious Affect: Mood Congruent, Constricted Patient Behavior: Fatigued, Cooperative Speech Pattern: Clear, Appropriate Voice Loudness: Normal Thought Process: Intact, Goal Oriented Thought Disorder: Not Present Hallucinations: Denies Suicidal Ideation: Denies Homicidal Ideation: Denies Insight/Judgement: Poor Appetite: Good Muscle strength/Tone: Normal Gait/Station: Normal Psychiatric Findings - Problem List ([place] 1, 2,3) (1) Alcohol dependence with uncomplicated withdrawal Current Visit: Yes Status: Acute (2) Sedative, hypnotic or anxiolytic dependence with withdrawal, uncomplicated Current Visit: Yes Status: Acute (3) Opioid dependence on agonist therapy Current Visit: Yes Status: Chronic (4) Cocaine dependence Current Visit: Yes Status: Chronic Qualifiers: Substance use status: uncomplicated Qualified Code(s): F14.20 - Cocaine dependence, uncomplicated (5) Nicotine dependence Current Visit: Yes Status: Chronic Qualifiers: Nicotine product type: cigarettes Substance use status: uncomplicated Qualified Code(s): F17.210 - Nicotine dependence, cigarettes, uncomplicated (6) Drug-induced mood disorder Current Visit: Yes Status: Chronic (7) ADD (attention deficit disorder) Current Visit: No Status: Chronic Qualifiers: Hyperactivity presence: absent Qualified Code(s): F98.8 - Other specified behavioral and emotional disorders with onset usually occurring in childhood and adolescence Comment: As per self-report. Off medications for years. (8) Insomnia Current Visit: Yes Status: Chronic Qualifiers: Insomnia type: unspecified Qualified Code(s): G47.00 - Insomnia, unspecified - Initial Treatment Plan Initial Treatment Plan: Psychiatric interview conducted with medical students in attendance. With patient's verbal authorization. Psychoeducation. Detoxification in progress. Sleep hygiene. Motivational sessions will be offered throughout hospital course. NA/AA meetings. Relapse prevention measures : revisited with the patient. Mr Galeana expresses interest, only for a hypnotic medication (mirtazapine). Agrees to start on 15 mg at bedtime. Side effects/ benefits discussed. Observation.
[2018-06-30] MEDS: MIRTAZAPINE 15 MG TABLET (FP) PO SCH (22:18)
[2018-06-30] MEDS: MELATONIN 5 MG TABLETS PO PRN (22:19)
[2018-06-30] MEDS: THIAMINE HCL 100 MG TABLET (FP) PO SCH (22:19)
[2018-07-01] MEDS: METHADONE HCL 40 MG DISPERSABLE TABLET PO SCH (05:14)
[2018-07-01] MEDS: diazePAM 5 MG TABLET PO PRN ×2 (05:14→12:08)
[2018-07-01] MEDS: NICOTINE POLACRILEX 4 MG GUM BUC PRN ×3 (05:15→12:09)
[2018-07-01] MEDS: PRENATAL VITAMINS W/ FOLIC ACID TABLET (FP) PO SCH (09:37)
[2018-07-01] MEDS: diazePAM 5 MG TABLET PO SCH ×2 (09:37→22:34)
[2018-07-01] MEDS: SILVER SULFADIAZINE 1% TOP CREAM 50 GM JAR TP SCH (09:38)
--- NOTE | 2018-07-01 11:02 | PN ---
S CIWA - CIWA Score Nausea/Vomitin-No Nausea/No Vomiting Muscle Tremors: 1-None Visible, but [place] Anxiety: 1-Mildly Anxious Agitation: 1-Slight > Activity Paroxysmal Sweats: 1-Minimal Palms Moist Orientation: 1-Uncertain about Date Tacttile Disturbances: 0-None Auditory Disturbances: 0-None Visual Disturbances: 0-None Headache: 1-Very Mild CIWA-Ar Total Score: 6 BHS Progress Note (SOAP) Subjective: feeling better mild anxiousness less sweating patient refuses to wrap left hand chronic skin peeling with cling in respect patient's preference that recommend avoid irritation to the left hand Objective: 07/01/18 11:05 Vital Signs Temperature 96.7 F L 07/01/18 09:25 Pulse Rate 69 07/01/18 09:25 Respiratory Rate 18 07/01/18 09:25 Blood Pressure 114/70 07/01/18 09:25 O2 Sat by Pulse Oxime (%) Laboratory Last Values WBC 5.3 K/mm3 (4.0-10.0) 06/29/18 07:45 RBC 3.87 M/mm3 (4.00-5.60) L 06/29/18 07:45 Hgb 11.5 GM/dL (11.7-16.9) L 06/29/18 07:45 Hct 33.1 % (35.4-49) L 06/29/18 07:45 MCV 85.6 fl (80-96) 06/29/18 07:45 MCH 29.6 pg (25.7-33.7) 06/29/18 07:45 MCHC 34.6 g/dl (32.0-35.9) 06/29/18 07:45 RDW 12.9 % (11.9-15.9) 06/29/18 07:45 Plt Count 171 K/MM3 (134-434) D 06/29/18 07:45 MPV 10.0 fl (7.5-11.1) 06/29/18 07:45 Sodium 141 mmol/L (136-145) 06/29/18 07:45 Potassium 4.3 mmol/L (3.5-5.1) 06/29/18 07:45 Chloride 105 mmol/L (98-107) 06/29/18 07:45 Carbon Dioxide 30 mmol/L (21-32) 06/29/18 07:45 Anion Gap 7 MMOL/L (8-16) L 06/29/18 07:45 BUN 20 mg/dL (7-18) H 06/29/18 07:45 Creatinine 0.9 mg/dL (0.55-1.3) 06/29/18 07:45 Creat Clearance w eGFR > 60 (>60) 06/29/18 07:45 Random Glucose 124 mg/dL (74-106) H 06/29/18 07:45 Calcium 8.8 mg/dL (8.5-10.1) 06/29/18 07:45 Total Bilirubin 0.3 mg/dL (0.2-1) 06/29/18 07:45 AST 220 U/L (15-37) H 06/29/18 07:45 ALT 175 U/L (13-61) H 06/29/18 07:45 Alkaline Phosphatase 82 U/L (45-117) 06/29/18 07:45 Total Protein 5.7 g/dl (6.4-8.2) L 06/29/18 07:45 Albumin 3.0 g/dl (3.4-5.0) L 06/29/18 07:45 RPR Titer Nonreactive (NONREACTIVE) 06/29/18 07:45 lab noted 07/01/18 11:17 patient agrees to blood work for ast today Assessment: 07/01/18 11:18 mild withdrawal sx Plan: continue detox
[2018-07-01] MEDS: THIAMINE HCL 100 MG TABLET (FP) PO SCH (22:32)
[2018-07-01] MEDS: MIRTAZAPINE 15 MG TABLET (FP) PO SCH (22:33)
[2018-07-01] MEDS: MELATONIN 5 MG TABLETS PO PRN (22:33)
[2018-07-02] MEDS: NICOTINE POLACRILEX 4 MG GUM BUC PRN (05:23)
[2018-07-02] MEDS: METHADONE HCL 40 MG DISPERSABLE TABLET PO SCH (05:23)
[2018-07-02 09:58] VITALS: BP 106/62; PULSE 61; TEMP 96.6
[2018-07-02] MEDS ORDERED: diazePAM 5 MG TABLET PO SCH (10:00)
[2018-07-02] MEDS: PRENATAL VITAMINS W/ FOLIC ACID TABLET (FP) PO SCH (10:11)
[2018-07-02] MEDS: SILVER SULFADIAZINE 1% TOP CREAM 50 GM JAR TP SCH (10:13)
--- NOTE | 2018-07-02 15:35 | DS ---
[facility] Detox Discharge Summary Admission Date: 06/28/18 Discharge Date: 07/02/18 - History Present History: Alcohol Dependence, Sedative Dependence Additional Comments: 28 years old male admitted on 06/28/18 for alcohol and benzo withdrawal stabilization completed detox regimen aftercare [facility] services Pertinent Past History: patient preferred return to methadone program for medical and mental issues encourage bring medication list and / or bottle of medications to aftercare / or follow up appointments - Physical Exam Results Vital Signs: Vital Signs Temperature 96.6 F L 07/02/18 09:57 Pulse Rate 61 07/02/18 09:57 Respiratory Rate 18 07/02/18 09:57 Blood Pressure 106/62 07/02/18 09:57 O2 Sat by Pulse Oximetry (%) Pertinent Admission Physical Exam Findings: alcohol and benzo withdrawal sx Laboratory Last Values WBC 5.3 K/mm3 (4.0-10.0) 06/29/18 07:45 RBC 3.87 M/mm3 (4.00-5.60) L 06/29/18 07:45 Hgb 11.5 GM/dL (11.7-16.9) L 06/29/18 07:45 Hct 33.1 % (35.4-49) L 06/29/18 07:45 MCV 85.6 fl (80-96) 06/29/18 07:45 MCH 29.6 pg (25.7-33.7) 06/29/18 07:45 MCHC 34.6 g/dl (32.0-35.9) 06/29/18 07:45 RDW 12.9 % (11.9-15.9) 06/29/18 07:45 Plt Count 171 K/MM3 (134-434) D 06/29/18 07:45 MPV 10.0 fl (7.5-11.1) 06/29/18 07:45 Sodium 141 mmol/L (136-145) 06/29/18 07:45 Potassium 4.3 mmol/L (3.5-5.1) 06/29/18 07:45 Chloride 105 mmol/L (98-107) 06/29/18 07:45 Carbon Dioxide 30 mmol/L (21-32) 06/29/18 07:45 Anion Gap 7 MMOL/L (8-16) L 06/29/18 07:45 BUN 20 mg/dL (7-18) H 06/29/18 07:45 Creatinine 0.9 mg/dL (0.55-1.3) 06/29/18 07:45 Creat Clearance w eGFR > 60 (>60) 06/29/18 07:45 Random Glucose 124 mg/dL (74-106) H 06/29/18 07:45 Calcium 8.8 mg/dL (8.5-10.1) 06/29/18 07:45 Total Bilirubin 0.3 mg/dL (0.2-1) 06/29/18 07:45 AST 220 U/L (15-37) H 06/29/18 07:45 ALT 175 U/L (13-61) H 06/29/18 07:45 Alkaline Phosphatase 82 U/L (45-117) 06/29/18 07:45 Total Protein 5.7 g/dl (6.4-8.2) L 06/29/18 07:45 Albumin 3.0 g/dl (3.4-5.0) L 06/29/18 07:45 RPR Titer Nonreactive (NONREACTIVE) 06/29/18 07:45 lab noted patient refused ast repeat patient agrees to bring in lab result to methadone maintenance program for follow up - Treatment Hospital Course: Detox Protocol Followed, Detoxed Safely, Responded well, Discharged Condition Good, Rehab Referral Accepted Patient has Accepted a Rehab Referral to: methadone maintenance program - Medication Discharge Medications: Ambulatory Orders Methadone [Dolophine -] 200 mg PO DAILY 06/28/18 - Diagnosis (1) Alcohol dependence with uncomplicated withdrawal Status: Acute (2) Sedative, hypnotic or anxiolytic dependence with withdrawal, uncomplicated Status: Acute (3) Weight loss Status: Acute (4) Drug-induced mood disorder Status: Chronic (5) Hepatitis C Status: Chronic Qualifiers: Viral hepatitis chronicity: chronic Hepatic coma status: without hepatic coma Qualified Code(s): B18.2 - Chronic viral hepatitis C (6) Nicotine dependence Status: Acute Qualifiers: Nicotine product type: cigarettes Substance use status: in withdrawal Qualified Code(s): F17.213 - Nicotine dependence, cigarettes, with withdrawal - AMA Did Patient Leave Against Medical Advice: No
== END 2018-07-02 10:58 | disposition home or self-care (01) | DRG 773 ==
LOC: YASAS 10:23 → Y3N 13:37
PROVIDERS: ADMIT Surgery; ATTEND Surgery
PROC: HZ2ZZZZ Detoxification Services for Substance Abuse Treatment (ICD-10-PCS; principal; 2018-06-28)
DX: F10.230 Alcohol dependence with withdrawal, uncomplicated (principal); F11.20 Opioid dependence, uncomplicated; F13.230 Sedative, hypnotic or anxiolytic dependence with withdrawal, uncomplicated; F14.20 Cocaine dependence, uncomplicated; F17.210 Nicotine dependence, cigarettes, uncomplicated; F19.24 Other psychoactive substance dependence with psychoactive substance-induced mood disorder; F98.8 Other specified behavioral and emotional disorders with onset usually occurring in childhood and adolescence; B18.2 Chronic viral hepatitis C; G47.00 Insomnia, unspecified; E86.0 Dehydration; R23.8 Other skin changes; L08.9 Local infection of the skin and subcutaneous tissue, unspecified; Z86.69 Personal history of other diseases of the nervous system and sense organs; Z91.5 Personal history of self-harm; Z59.0 Homelessness
CPT/HCPCS: 36415; 80053; 85027; 86593

== ENCOUNTER 2018-07-08 13:12 | Inpatient (IN) | payer OTHER ==
[2018-07-08 15:45] VITALS: BMI 23.8
[2018-07-08] MEDS ORDERED: guaiFENesin/D-METHORPHAN HB 10 ML UNIT-DOSE CUPS PO PRN (16:17)
[2018-07-08] MEDS ORDERED: MAGNESIUM CITRATE 300 ML BOTTLE PO PRN (16:17)
[2018-07-08] MEDS ORDERED: MAGNESIUM HYDROX 2400MG/30ML ORAL SUSPENSION 30 ML CUP PO PRN (16:17)
[2018-07-08] MEDS ORDERED: P-EPHED 60MG/TRIPROLIDI 2.5MG TABLET PO PRN (16:17)
[2018-07-08] MEDS ORDERED: LOPERAMIDE HCL 2 MG CAPSULE PO PRN (16:17)
[2018-07-08] MEDS ORDERED: ACETAMINOPHEN 325 MG TABLET (FP) PO PRN (16:17)
[2018-07-08] MEDS ORDERED: NICOTINE POLACRILEX 2 MG GUM BC PRN (16:17)
[2018-07-08] MEDS ORDERED: hydrOXYzine PAMOATE 50 MG CAPSULE (FP) PO PRN (16:17)
[2018-07-08] MEDS ORDERED: MAG HYDROX/AL HYDROX/SIMETH 30 ML UNIT-DOSE CUP PO PRN (16:17)
[2018-07-08] MEDS ORDERED: MENTHOL/PHENOL 1 EACH UD MM PRN (16:17)
--- NOTE | 2018-07-08 16:17 | HP ---
CIWA Score - Admission Criteria OASAS Guidelines: Admission for Medically Managed Detox: Requires at least one of the followin. CIWA greater than 12 2. Seizures within the past 24 hours 3. Delirium tremens within the past 24 hours 4. Hallucinations within the past 24 hours 5. Acute intervention needed for co occurring medical disorder 6. Acute intervention needed for co occurring psychiatric disorder 7. Severe withdrawal that cannot be handled at a lower level of care (continued vomiting, continued diarrhea, abnormal vital signs) requiring intravenous medication and/or fluids 8. Admission ROS S - HPI Chief Complaint: alcohol and xanax rehabilitation Allergies/Adverse Reactions: Allergies Allergy/AdvReac Type Severity Reaction Status Date / Time No Known Allergies Allergy Verified 06/28/18 13:36 History of Present Illness: 28 yo male with hx of alcohol, nicoitne and benzo dependence is here seeking rehabilitation, self referred, completed etox at [facility] 06/28/18 - 07/02/18. PMHX: anxiety. MMTP : [facility] on 200 mg last medicated today dose pending verification. Denies suicidal / homicidal ideation. Hx of benzo withdrawal seizures. Exam Limitations: No Limitations - Ebola screening Have you traveled outside of the country in the last 21 days: No Have you had contact with anyone from an Ebola affected area: No Have you been sick,other than usual withdrawal symptoms: No Do you have a fever: No - Review of Systems Constitutional: Unintentional Wgt. Loss EENT: reports: No Symptoms Reported Respiratory: reports: No Symptoms reported Cardiac: reports: No Symptoms Reported GI: reports: No Symptoms Reported : reports: No Symptoms Reported Musculoskeletal: reports: No Symptoms Reported Integumentary: reports: No Symptoms Reported Neuro: reports: No Symptoms reported Endocrine: reports: No Symptoms Reported Hematology: reports: No Symptoms Reported Psychiatric: reports: Orientated x3, Anxious Other Systems: Reviewed and Negative Patient History - Patient Medical History Hx Anemia: No Hx Asthma: No Hx Chronic Obstructive Pulmonary Disease (COPD): No Hx Cancer: No Hx Cardiac Disorders: No Hx Congestive Heart Failure: No Hx Hypertension: No Hx Hypercholesterolemia: No Hx Pacemaker: No HX Cerebrovascular Accident: No Hx Seizures: Yes (drug related - 06/24/18) Hx Dementia: No Hx Diabetes: No Hx Gastrointestinal Disorders: No Hx Liver Disease: Yes (Hep C ) Hx Genitourinary Disorders: No Hx Sexually Transmitted Disorders: No Hx Renal Disease (ESRD): No Hx Thyroid Disease: No Hx Human Immunodeficiency Virus (HIV): No Hx Hepatitis C: Yes (untreated) Hx Depression: Yes (no meds) Hx Suicide Attempt: Yes (cut wrist 02/2019; also age 17) Hx Bipolar Disorder: No Hx Schizophrenia: No - Patient Surgical History Past Surgical History: Yes Hx Neurologic Surgery: No Hx Cataract Extraction: No Hx Cardiac Surgery: No Hx Lung Surgery: No Hx Breast Surgery: No Hx Breast Biopsy: No Hx Abdominal Surgery: No Hx Appendectomy: No Hx Cholecystectomy: No Hx Genitourinary Surgery: No Hx Section: No Hx Orthopedic Surgery: Yes (TENDON REPAIR ON RT MIDDLE FINGER) Other Surgical History: Surgery for cleft lip as . Anesthesia Reaction: No - PPD History Previous Implant?: No Documented Results: Negative w/proof Date: 08/29/17 Results: 0 mm. PPD to be Administered?: No - Smoking Cessation Smoking history: Current every day smoker Have you smoked in the past 12 months: Yes Aproximately how many cigarettes per day: 20 If you are a former smoker, when did you quit?: 7 days ago Cigars Per Day: 0 Hx Chewing Tobacco Use: No Initiated information on smoking cessation: Yes 'Breaking Loose' booklet given: 07/08/18 - Substance & Tx. History Hx Alcohol Use: Yes Hx Substance Use: Yes Substance Use Type: Alcohol, Tranquilizers Hx Substance Use Treatment: Yes (Detox [facility] 06/28/18 - 07/02/18) - Substances Abused Alcohol Route: Oral Frequency: Daily Amount used: 3 nips Age of first use: 17 Date of Last Use: 06/28/18 Alprazolam (Xanax) Route: Oral Frequency: Daily Amount used: 8 -10 mg Age of first use: 17 Date of Last Use: 06/28/18 Family Disease History - Family Disease History Family Disease History: Other: Father (unknown, etoh), Mother (alive, Hyperlipidemia ), Brother (alive, alcohol , hep c) Admission Physical Exam [facility] - Vital Signs Vital Signs: Vital Signs - 24 hr 07/08/18 15:43 Temperature 96.5 F L Pulse Rate 66 Respiratory 20 Rate Blood Pressure 111/66 - Physical General Appearance: Yes: Appropriately Dressed, Thin, Anxious HEENTM: Yes: EOMI, Hearing grossly Normal, Normal ENT Inspection, Normocephalic , Normal Voice, LORETA, Pharynx Normal, Tm's normal Respiratory: Yes: Within Normal Limits Neck: Yes: Within Normal Limits Breast: Yes: Breast Exam Deferred Cardiology: Yes: Regular Rhythm, Regular Rate Abdominal: Yes: Normal Bowel Sounds, Non Tender, Flat, Soft Genitourinary: Yes: Within Normal Limits Back: Yes: Normal Inspection Musculoskeletal: Yes: full range of Motion, Gait Steady Extremities: Yes: Within Normal Limits 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 - Diagnostic (1) Alcohol dependence Current Visit: Yes Status: Acute Qualifiers: Substance use status: uncomplicated Qualified Code(s): F10.20 - Alcohol dependence, uncomplicated (2) Sedative hypnotic or anxiolytic dependence Current Visit: Yes Status: Acute (3) Nicotine dependence Current Visit: Yes Status: Acute Qualifiers: Nicotine product type: cigarettes Substance use status: in withdrawal Qualified Code(s): F17.213 - Nicotine dependence, cigarettes, with withdrawal (4) Weight loss Current Visit: Yes Status: Acute (5) Hepatitis C Current Visit: Yes Status: Chronic Qualifiers: Viral hepatitis chronicity: chronic Hepatic coma status: without hepatic coma Qualified Code(s): B18.2 - Chronic viral hepatitis C (6) Opioid dependence on agonist therapy Current Visit: Yes Status: Chronic BHS Breath Alcohol Content Breath Alcohol Content: 0 Urine Drug Screen - Results Drug Screen Negative: No Urine Drug Screen Results: BZO-Benzodiazepines, MTD-Methadone Inpatient Rehab Admission - Rehab Decision to Admit Inpatient rehab admission?: Yes - Initial Determination Are CD services needed?: Yes Free of communicable disease: Yes Not in need of hospitalization: Yes - Rehab Admission Criteria Previous failed treatment: Yes Poor recovery environment: Yes Comorbidities: Yes Lacks judgement: Yes Patient is meeting Inpatient Rehab admission criteria:: Yes
[2018-07-08] MEDS: NICOTINE POLACRILEX 2 MG GUM BC PRN ×2 (18:46→21:26)
[2018-07-08] MEDS: THIAMINE HCL 100 MG TABLET (FP) PO SCH (21:23)
[2018-07-08] MEDS ORDERED: MELATONIN 5 MG TABLETS PO PRN (22:00)
[2018-07-09] MEDS: NICOTINE POLACRILEX 2 MG GUM BC PRN ×6 (06:46→21:19)
[2018-07-09] MEDS ORDERED: METHADONE HCL 10 MG TABLET PO ONE (09:32)
[2018-07-09] MEDS: METHADONE HCL 40 MG DISPERSABLE TABLET PO SCH (09:39)
[2018-07-09] MEDS: PRENATAL VITAMINS W/ FOLIC ACID TABLET (FP) PO SCH (09:42)
[2018-07-09] MEDS: NICOTINE 14 MG/24 HOURS TOPICAL PATCH TD SCH (10:03)
[2018-07-09] MEDS ORDERED: SILVER SULFADIAZINE 1% TOP CREAM 50 GM JAR TP ONE (11:57)
[2018-07-09] MEDS ORDERED: COLLOIDAL OATMEAL 1 BAR EACH TP PRN (11:59)
--- NOTE | 2018-07-09 12:01 | PN ---
[facility] Progress Note Note: PT WAS ADMITTED TO REHAB YESTERDAY. COMPLETED DETOX ON 06/28/18 TO 07/02/18. WENT HOME AND CAME BACK FOR REHAB. PT REPORTS AN ONGOING ULCER ON LEFT INDEX FINGER SINCE LAST OF 2017, WAS TREATED WITH NEOSPORIN BUT NOT EFFECTIVE BUT COMING BACK AGAIN. REPORTS IT STARTED BLISTERS ON HIS PALM AND FINGERS. Vital Signs - 24 hr 07/08/18 07/08/18 07/09/18 15:43 17:50 00:30 Temperature 96.5 F L 98.2 F Pulse Rate 66 73 Respiratory 20 18 18 Rate Blood Pressure 111/66 124/74 07/09/18 07/09/18 03:30 06:53 Temperature 97.4 F L Pulse Rate 64 Respiratory 18 18 Rate Blood Pressure 124/79 SKIN:LEFT PALM/FINGERS WITH HEALING ULCERS ON THUMB , THIRD AND RING FINGERS. INDEX FINGER WITH NON-HEALING ULCER. CLEAN WITH NO DRAINAGE. A:CHRONIC ULCER OF INDEX FINGER PLAN:SILVADENE CREAM DIRECTED THEN WRAP FINGER WITH GUAZE DRESSING.
[2018-07-09] MEDS: SILVER SULFADIAZINE 1% TOP CREAM 400 GM JAR TP SCH ×2 (14:36→21:20)
[2018-07-09] MEDS: THIAMINE HCL 100 MG TABLET (FP) PO SCH (21:19)
[2018-07-10] MEDS: NICOTINE POLACRILEX 2 MG GUM BC PRN ×4 (06:25→20:40)
[2018-07-10] MEDS: METHADONE HCL 40 MG DISPERSABLE TABLET PO SCH (06:25)
[2018-07-10] MEDS: SILVER SULFADIAZINE 1% TOP CREAM 400 GM JAR TP SCH ×2 (10:06→21:19)
[2018-07-10] MEDS: PRENATAL VITAMINS W/ FOLIC ACID TABLET (FP) PO SCH (10:06)
[2018-07-10] MEDS: NICOTINE 14 MG/24 HOURS TOPICAL PATCH TD SCH (11:41)
--- NOTE | 2018-07-10 16:46 | CONSULT ---
[facility] Psychiatric Consult - Data Date of interview: 07/10/18 Admission source: [facility] Identifying data: Patient is a 28 year old male, in a domestic partnership, unemployed, and domiciled. Patient is supported by his partner. This is one of multiple admissions for patient. Patient admitted to for alcohol, and benzodiazepine dependence. Substance Abuse History: Smoking Cessation. Smoking history: Current every day smoker. Have you smoked in the past 12 months: Yes. Aproximately how many cigarettes per day: 20. If you are a former smoker, when did you quit?: 7 days ago. Cigars Per Day: 0. Hx Chewing Tobacco Use: No. Initiated information on smoking cessation: Yes. 'Breaking Loose' booklet given: 07/08/18. - Substance & Tx. History. Hx Alcohol Use: Yes. Hx Substance Use: Yes. Substance Use Type : Alcohol, Tranquilizers. Hx Substance Use Treatment: Yes (Detox [facility] 06/28/18 - 07/02/18). - Substances Abused. Alcohol. Route: Oral. Frequency: Daily. Amount used: 3 nips. Age of first use: 17. Date of Last Use: 06/28/18. Alprazolam (Xanax). Route: Oral. Frequency: Daily. Amount used: 8 -10 mg. Age of first use: 17. Date of Last Use: 06/28/18 Medical History: hepatitis C, withdrawal-related seizures (history) and a distant antecedent of surgeries (cleft palate as an + tendon repair in right middle finger). Psychiatric History: Patient reports a history of 3-4 psychiatric hospitalizations, most recently in March of 2018 secondary to a suicide attempt by cutting self. He states the suicide attempt occured while he was intoxicated. Patient was diagnosed with depression and reports being prescribed remeron + xanac. Mr. Galeana reports additional hospitalizations at facilities in [place] and at [facility] in [facility]. Patient denies current outpatient psychiatric care (most recent in 2009). He reports past diagnosis of ADD in which he was prescribed adderal. Mr. Galeana is currently receiving Methadone maintenance 200mg daily from [facility] in [place]. At present he reports difficulty sleeping. Physical/Sexual Abuse/Trauma History: denies. Mental Status Exam - Mental Status Exam Alert and Oriented to: Time, Place, Person Cognitive Function: Good Patient Appearance: Well Groomed Mood: Hopeful, Euthymic Affect: Appropriate Patient Behavior: Appropriate, Cooperative Speech Pattern: Clear, Appropriate Voice Loudness: Normal Thought Process: Intact, Goal Oriented Thought Disorder: Not Present Hallucinations: Denies Suicidal Ideation: Denies Homicidal Ideation: Denies Insight/Judgement: Poor Sleep: Poorly Appetite: Fair Muscle strength/Tone: Normal Gait/Station: Normal Psychiatric Findings - Problem List ([place] 1, 2,3) (1) Substance-induced sleep disorder Current Visit: Yes Status: Acute (2) Alcohol dependence Current Visit: Yes Status: Acute Qualifiers: Substance use status: uncomplicated Qualified Code(s): F10.20 - Alcohol dependence, uncomplicated (3) Sedative hypnotic or anxiolytic dependence Current Visit: Yes Status: Acute (4) Opioid dependence on agonist therapy Current Visit: Yes Status: Chronic - Initial Treatment Plan Initial Treatment Plan: Psychoeducation provided. Detoxification in progress. Will order Mirtzapine 7.5mg HS. Benefits and side effects discussed. Verbal consent given.
[2018-07-10] MEDS: THIAMINE HCL 100 MG TABLET (FP) PO SCH (21:19)
[2018-07-10] MEDS ORDERED: MIRTAZAPINE 15 MG TABLET (FP) PO SCH (22:00)
[2018-07-11] MEDS: METHADONE HCL 40 MG DISPERSABLE TABLET PO SCH (06:03)
[2018-07-11] MEDS: NICOTINE POLACRILEX 2 MG GUM BC PRN ×6 (06:05→21:15)
[2018-07-11] MEDS: PRENATAL VITAMINS W/ FOLIC ACID TABLET (FP) PO SCH (09:47)
[2018-07-11] MEDS: SILVER SULFADIAZINE 1% TOP CREAM 400 GM JAR TP SCH ×2 (09:48→21:47)
[2018-07-11] MEDS: NICOTINE 14 MG/24 HOURS TOPICAL PATCH TD SCH (09:48)
--- NOTE | 2018-07-11 14:47 | PN ---
Psychiatric Progress Note Vital Signs: Vital Signs Period Temp Pulse Resp BP Sys/Mustafa Pulse Ox Last 24 Hr 97.5 F 57 18-18 125/75 Date of Session: 07/11/18 Chief Complaint:: "I only slept 2-3 hours last night." HPI: Patient admitted to for alcohol and benzodiazepine dependence. ROS: hepatitis C, withdrawal-related seizures (history) and a distant antecedent of surgeries (cleft palate as an + tendon repair in right middle finger). Current Medications: Active Medications Generic Name Dose Route Start Last Admin Trade Name Freq PRN Reason Stop Dose Admin Acetaminophen 650 mg 07/08/18 16:17 07/08/18 21:24 Tylenol - PO 650 mg Q4H PRN Administration FEVER Al Hydroxide/Mg Hydroxide 30 ml 07/08/18 16:17 Mylanta Oral Suspension - PO Q6H PRN DYSPEPSIA Eucalyptus/Menthol/Phenol/Sorbitol 1 each 07/08/18 16:17 Cepastat Lozenge - MM Q4H PRN SORE THROAT Guaifenesin 10 ml 07/08/18 16:17 Robitussin Dm - PO Q6H PRN COUGH Hydroxyzine Pamoate 50 mg 07/08/18 16:17 Vistaril - PO Q4H PRN AGITATION Ibuprofen 400 mg 07/08/18 16:17 Motrin - PO Q6H PRN Pain level 4-6 Loperamide HCl 4 mg 07/08/18 16:17 Imodium - PO Q6H PRN DIARRHEA Magnesium Citrate 300 ml 07/08/18 16:17 Citroma - PO Q48H PRN CONSTIPATION Magnesium Hydroxide 30 ml 07/08/18 16:17 Milk Of Magnesia - PO DAILY PRN CONSTIPATION Melatonin 5 mg 07/08/18 22:00 07/08/18 21:24 Melatonin PO 5 mg HS PRN Administration INSOMNIA Methadone HCl 200 mg 07/09/18 09:45 07/11/18 06:03 Dolophine - PO 200 mg DAILY@0600 CASANDRA Administration Mirtazapine 7.5 mg 07/10/18 22:00 07/10/18 21:19 Remeron - PO 7.5 mg HS CASANDRA Administration Nicotine 14 mg 07/09/18 10:00 07/11/18 09:48 Nicoderm Patch - TD Not Given DAILY CASANDRA Nicotine Polacrilex 4 mg 07/08/18 17:05 07/11/18 12:26 Nicorette Gum - BC 4 mg Q2H PRN Administration NICOTINE REPLACEMENT RX Multivit/Folic Acid/Iron 1 tab 07/09/18 10:00 07/11/18 09:47 Vitamins (Sjr) - PO 1 tab DAILY CASANDRA Administration Pseudoephedrine/Triprolidine 1 combo 07/08/18 16:17 Actifed - PO TID PRN NASAL CONGESTION Silver Sulfadiazine 1 applic 07/09/18 14:30 07/11/18 09:48 Silvadene - TP Not Given BID CASANDRA Thiamine HCl 100 mg 07/08/18 22:00 07/10/18 21:19 Vitamin B1 - PO 100 mg HS CASANDRA Administration Medication(s) Change(s): Yes. Will increase remeron 7.5 to 15mg qhs + Melatonin 5mg to 10mg. Current Side Effect: No Lab tests ordered: No Lab tests reviewed: Yes Provider note:: Patient reports difficulty sleeping last night. States he only slept 2-3 hours despite accepting remeron 7.5mg. Patient informed that he can accept melatonin and remeron. Will increase remeron to 15mg and melatonin to 10mg. Sleep hygiene discussed. Benefits and side effects discussed. Verbal consent given. Total face to face time:: 15 Mental Status Exam - Mental Status Exam Alert and Oriented to: Time, Place, Person Cognitive Function: Good Patient Appearance: Well Groomed Mood: Euthymic Affect: Appropriate Patient Behavior: Appropriate, Cooperative Speech Pattern: Clear, Appropriate Voice Loudness: Normal Thought Process: Intact, Goal Oriented Thought Disorder: Not Present Hallucinations: Denies Suicidal Ideation: Denies Homicidal Ideation: Denies Insight/Judgement: Poor Sleep: Poorly Appetite: Fair Muscle strength/Tone: Normal Gait/Station: Normal Psychiatric Treatment Plan - Problem List (1) Substance-induced sleep disorder Current Visit: Yes (2) Alcohol dependence Current Visit: Yes Qualifiers: Substance use status: uncomplicated Qualified Code(s): F10.20 - Alcohol dependence, uncomplicated (3) Sedative hypnotic or anxiolytic dependence Current Visit: Yes (4) Opioid dependence on agonist therapy Current Visit: Yes
[2018-07-11] MEDS: THIAMINE HCL 100 MG TABLET (FP) PO SCH (21:15)
[2018-07-11] MEDS: MIRTAZAPINE 15 MG TABLET (FP) PO SCH (21:15)
[2018-07-12] MEDS: METHADONE HCL 40 MG DISPERSABLE TABLET PO SCH (06:12)
[2018-07-12] MEDS: NICOTINE POLACRILEX 2 MG GUM BC PRN ×6 (06:12→22:02)
[2018-07-12] MEDS: NICOTINE 14 MG/24 HOURS TOPICAL PATCH TD SCH (09:34)
[2018-07-12] MEDS: PRENATAL VITAMINS W/ FOLIC ACID TABLET (FP) PO SCH (09:34)
[2018-07-12] MEDS: SILVER SULFADIAZINE 1% TOP CREAM 400 GM JAR TP SCH ×2 (09:46→22:01)
[2018-07-12] MEDS: MIRTAZAPINE 15 MG TABLET (FP) PO SCH (22:00)
[2018-07-12] MEDS: THIAMINE HCL 100 MG TABLET (FP) PO SCH (22:00)
[2018-07-12] MEDS: MELATONIN 5 MG TABLETS PO PRN (22:01)
[2018-07-13] MEDS: METHADONE HCL 40 MG DISPERSABLE TABLET PO SCH (06:17)
[2018-07-13] MEDS: PRENATAL VITAMINS W/ FOLIC ACID TABLET (FP) PO SCH (09:52)
[2018-07-13] MEDS: NICOTINE 14 MG/24 HOURS TOPICAL PATCH TD SCH (09:52)
[2018-07-13] MEDS: SILVER SULFADIAZINE 1% TOP CREAM 400 GM JAR TP SCH ×2 (09:52→21:23)
[2018-07-13] MEDS: NICOTINE POLACRILEX 2 MG GUM BC PRN ×4 (09:54→21:23)
[2018-07-13] MEDS: IBUPROFEN 400 MG TABLET (FP) PO PRN (13:35)
[2018-07-13] MEDS: THIAMINE HCL 100 MG TABLET (FP) PO SCH (21:23)
[2018-07-13] MEDS: MELATONIN 5 MG TABLETS PO PRN (21:23)
[2018-07-13] MEDS: MIRTAZAPINE 15 MG TABLET (FP) PO SCH (21:23)
[2018-07-14] MEDS: METHADONE HCL 40 MG DISPERSABLE TABLET PO SCH (06:14)
[2018-07-14] MEDS: NICOTINE POLACRILEX 2 MG GUM BC PRN ×6 (06:14→21:30)
[2018-07-14] MEDS: PRENATAL VITAMINS W/ FOLIC ACID TABLET (FP) PO SCH (10:10)
[2018-07-14] MEDS: SILVER SULFADIAZINE 1% TOP CREAM 400 GM JAR TP SCH ×2 (10:11→21:31)
[2018-07-14] MEDS: NICOTINE 14 MG/24 HOURS TOPICAL PATCH TD SCH (10:11)
[2018-07-14] MEDS: IBUPROFEN 400 MG TABLET (FP) PO PRN (15:30)
[2018-07-14] MEDS: MIRTAZAPINE 15 MG TABLET (FP) PO SCH (21:29)
[2018-07-14] MEDS: MELATONIN 5 MG TABLETS PO PRN (21:30)
[2018-07-14] MEDS: THIAMINE HCL 100 MG TABLET (FP) PO SCH (21:30)
[2018-07-15] MEDS: METHADONE HCL 40 MG DISPERSABLE TABLET PO SCH (05:53)
[2018-07-15] MEDS: NICOTINE POLACRILEX 2 MG GUM BC PRN ×4 (06:29→21:21)
[2018-07-15] MEDS: NICOTINE 14 MG/24 HOURS TOPICAL PATCH TD SCH (10:03)
[2018-07-15] MEDS: PRENATAL VITAMINS W/ FOLIC ACID TABLET (FP) PO SCH (10:03)
[2018-07-15] MEDS: SILVER SULFADIAZINE 1% TOP CREAM 400 GM JAR TP SCH ×2 (10:03→21:21)
[2018-07-15] MEDS: MIRTAZAPINE 15 MG TABLET (FP) PO SCH (21:21)
[2018-07-15] MEDS: THIAMINE HCL 100 MG TABLET (FP) PO SCH (21:23)
[2018-07-15] MEDS: MELATONIN 5 MG TABLETS PO PRN (21:23)
[2018-07-16] MEDS: NICOTINE POLACRILEX 2 MG GUM BC PRN ×6 (06:20→21:22)
[2018-07-16] MEDS: METHADONE HCL 40 MG DISPERSABLE TABLET PO SCH (06:20)
[2018-07-16] MEDS: SILVER SULFADIAZINE 1% TOP CREAM 400 GM JAR TP SCH ×2 (10:00→21:20)
[2018-07-16] MEDS: PRENATAL VITAMINS W/ FOLIC ACID TABLET (FP) PO SCH (10:00)
[2018-07-16] MEDS: NICOTINE 14 MG/24 HOURS TOPICAL PATCH TD SCH (10:00)
[2018-07-16] MEDS ORDERED: DOCUSATE SODIUM 100 MG CAPSULE (FP) PO ONE (10:06)
--- NOTE | 2018-07-16 10:06 | PN ---
S Progress Note Note: PATIENT C/O CONSTIPATION AND REQUESTING COLACE PT ON METHADONE MAINTAINANCE. DENIES N/V. Vital Signs 07/16/18 07/16/18 03:30 06:46 Temperature 97.8 F Pulse Rate 66 Respiratory 18 17 Rate Blood Pressure 110/65 NAD PLAN:COLACE 100 MG PO TID
[2018-07-16] MEDS: DOCUSATE SODIUM 100 MG CAPSULE (FP) PO SCH ×2 (13:09→21:20)
[2018-07-16] MEDS: MIRTAZAPINE 15 MG TABLET (FP) PO SCH (21:20)
[2018-07-16] MEDS: MELATONIN 5 MG TABLETS PO PRN (21:21)
[2018-07-16] MEDS: THIAMINE HCL 100 MG TABLET (FP) PO SCH (21:22)
[2018-07-17] MEDS: METHADONE HCL 40 MG DISPERSABLE TABLET PO SCH (06:03)
[2018-07-17] MEDS: DOCUSATE SODIUM 100 MG CAPSULE (FP) PO SCH ×3 (06:03→21:10)
[2018-07-17] MEDS: NICOTINE POLACRILEX 2 MG GUM BC PRN ×5 (06:05→21:11)
[2018-07-17] MEDS: PRENATAL VITAMINS W/ FOLIC ACID TABLET (FP) PO SCH (09:55)
[2018-07-17] MEDS: NICOTINE 14 MG/24 HOURS TOPICAL PATCH TD SCH (09:55)
[2018-07-17] MEDS: SILVER SULFADIAZINE 1% TOP CREAM 400 GM JAR TP SCH ×2 (09:56→21:11)
[2018-07-17] MEDS: MELATONIN 5 MG TABLETS PO PRN (21:10)
[2018-07-17] MEDS: MIRTAZAPINE 15 MG TABLET (FP) PO SCH (21:10)
[2018-07-17] MEDS: THIAMINE HCL 100 MG TABLET (FP) PO SCH (21:11)
[2018-07-18] MEDS: METHADONE HCL 40 MG DISPERSABLE TABLET PO SCH (06:12)
[2018-07-18] MEDS: DOCUSATE SODIUM 100 MG CAPSULE (FP) PO SCH ×3 (06:12→21:24)
[2018-07-18] MEDS: NICOTINE POLACRILEX 2 MG GUM BC PRN ×4 (08:28→21:26)
[2018-07-18] MEDS: SILVER SULFADIAZINE 1% TOP CREAM 400 GM JAR TP SCH ×2 (10:06→21:25)
[2018-07-18] MEDS: PRENATAL VITAMINS W/ FOLIC ACID TABLET (FP) PO SCH (10:06)
[2018-07-18] MEDS: NICOTINE 14 MG/24 HOURS TOPICAL PATCH TD SCH (10:06)
[2018-07-18] MEDS: MIRTAZAPINE 15 MG TABLET (FP) PO SCH (21:24)
[2018-07-18] MEDS: THIAMINE HCL 100 MG TABLET (FP) PO SCH (21:25)
[2018-07-18] MEDS: MELATONIN 5 MG TABLETS PO PRN (21:25)
[2018-07-19] MEDS: DOCUSATE SODIUM 100 MG CAPSULE (FP) PO SCH ×3 (06:31→21:16)
[2018-07-19] MEDS: METHADONE HCL 40 MG DISPERSABLE TABLET PO SCH (06:32)
[2018-07-19] MEDS: NICOTINE POLACRILEX 2 MG GUM BC PRN ×5 (06:33→21:17)
[2018-07-19] MEDS: NICOTINE 14 MG/24 HOURS TOPICAL PATCH TD SCH (10:00)
[2018-07-19] MEDS: PRENATAL VITAMINS W/ FOLIC ACID TABLET (FP) PO SCH (10:00)
[2018-07-19] MEDS: SILVER SULFADIAZINE 1% TOP CREAM 400 GM JAR TP SCH ×2 (11:57→21:18)
[2018-07-19] MEDS: IBUPROFEN 400 MG TABLET (FP) PO PRN (12:13)
[2018-07-19] MEDS: MIRTAZAPINE 15 MG TABLET (FP) PO SCH (21:16)
[2018-07-19] MEDS: MELATONIN 5 MG TABLETS PO PRN (21:16)
[2018-07-19] MEDS: THIAMINE HCL 100 MG TABLET (FP) PO SCH (21:17)
[2018-07-20] MEDS: DOCUSATE SODIUM 100 MG CAPSULE (FP) PO SCH ×3 (06:13→21:15)
[2018-07-20] MEDS: METHADONE HCL 40 MG DISPERSABLE TABLET PO SCH (06:13)
[2018-07-20] MEDS: NICOTINE 14 MG/24 HOURS TOPICAL PATCH TD SCH (09:43)
[2018-07-20] MEDS: PRENATAL VITAMINS W/ FOLIC ACID TABLET (FP) PO SCH (09:43)
[2018-07-20] MEDS: SILVER SULFADIAZINE 1% TOP CREAM 400 GM JAR TP SCH ×2 (09:44→21:15)
[2018-07-20] MEDS: NICOTINE POLACRILEX 2 MG GUM BC PRN ×4 (10:26→21:15)
[2018-07-20] MEDS: THIAMINE HCL 100 MG TABLET (FP) PO SCH (21:15)
[2018-07-20] MEDS: MIRTAZAPINE 15 MG TABLET (FP) PO SCH (21:15)
[2018-07-21] MEDS: DOCUSATE SODIUM 100 MG CAPSULE (FP) PO SCH (06:08)
[2018-07-21] MEDS: METHADONE HCL 40 MG DISPERSABLE TABLET PO SCH (06:08)
[2018-07-21] MEDS: NICOTINE POLACRILEX 2 MG GUM BC PRN ×2 (06:11→09:17)
[2018-07-21 07:04] VITALS: BP 130/77; PULSE 57; TEMP 97.5
[2018-07-21] MEDS: IBUPROFEN 400 MG TABLET (FP) PO PRN (08:09)
[2018-07-21] MEDS: NICOTINE 14 MG/24 HOURS TOPICAL PATCH TD SCH (09:16)
[2018-07-21] MEDS: PRENATAL VITAMINS W/ FOLIC ACID TABLET (FP) PO SCH (09:16)
[2018-07-21] MEDS: SILVER SULFADIAZINE 1% TOP CREAM 400 GM JAR TP SCH (09:16)
--- NOTE | 2018-07-21 10:52 | PN ---
[facility] Progress Note Note: PT COMPLETED REHAB AND DISCHARGED TODAY. PT MET WITH HIS COUNSELOR AND WAS REFERRED BACK TO [facility] ON [address] [place], [place]. PT REPORTS HE HAS A PCP DR. TRACIE Enriquez(PT NOT SURE SPELLING OF LAST NAME) ON [place], [place]. ALERT O X 3. DENIES S/H/I. DECLINED [employer] STATING HE HAS AT HOME. Home Medications Medication Instructions Recorded Methadone [Dolophine -] 200 mg PO DAILY 06/28/18 Vital Signs (72 hours) 07/19/18 07/19/18 07/19/18 00:30 03:30 06:47 Temperature 98.0 F Pulse Rate 68 Respiratory 18 18 18 Rate Blood Pressure 128/92 07/19/18 07/20/18 07/20/18 09:19 00:30 03:30 Temperature Pulse Rate 70 Respiratory 18 18 Rate Blood Pressure 124/77 07/20/18 07/21/18 07/21/18 06:50 00:30 03:30 Temperature 97.8 F Pulse Rate 64 Respiratory 18 18 18 Rate Blood Pressure 125/80 07/21/18 07:02 Temperature 97.5 F L Pulse Rate 57 L Respiratory 18 Rate Blood Pressure 130/77 NAD MEDICALLY STABLE PLAN:DISCUSSED WITH PT TO FOLLOW UP WITH PCP ABOVE WITHIN 1-2 WEEKS AFTER DISCHARGE. FOLLOW UP WITH CD AFTER[facility]ARE RECOMMENDED ON 07/22/18 @ 06:00 A.M.
== END 2018-07-21 09:15 | disposition home or self-care (01) | DRG 772 ==
LOC: YASAS 13:12 → Y5N 17:03
PROVIDERS: ADMIT Neuromusculoskeletal Medicine & OMM; ATTEND Neuromusculoskeletal Medicine & OMM
PROC: HZ42ZZZ Group Counseling for Substance Abuse Treatment, Cognitive-Behavioral (ICD-10-PCS; principal; 2018-07-08)
DX: F10.20 Alcohol dependence, uncomplicated (principal); F13.20 Sedative, hypnotic or anxiolytic dependence, uncomplicated; F11.20 Opioid dependence, uncomplicated; F17.210 Nicotine dependence, cigarettes, uncomplicated; F19.282 Other psychoactive substance dependence with psychoactive substance-induced sleep disorder; B18.2 Chronic viral hepatitis C; L98.491 Non-pressure chronic ulcer of skin of other sites limited to breakdown of skin; R63.4 Abnormal weight loss; Z68.23 Body mass index [BMI] 23.0-23.9, adult; Z91.5 Personal history of self-harm

== ENCOUNTER 2018-12-12 16:14 | Inpatient (IN) | payer OTHER | END 2018-12-16 14:50 | disposition other institution (70) | LOC: YASAS 16:14 → Y6N 23:31 ==

== ENCOUNTER 2018-12-16 15:18 | Inpatient (IN) | payer OTHER ==
[2018-12-16] MEDS ORDERED: MAG HYDROX/AL HYDROX/SIMETH 30 ML UNIT-DOSE CUP PO PRN (15:24)
[2018-12-16] MEDS ORDERED: MAGNESIUM CITRATE 300 ML BOTTLE PO PRN (15:24)
[2018-12-16] MEDS ORDERED: ACETAMINOPHEN 325 MG TABLET (FP) PO PRN (15:24)
[2018-12-16] MEDS ORDERED: MENTHOL/PHENOL 1 EACH UD MM PRN (15:24)
[2018-12-16] MEDS ORDERED: MAGNESIUM HYDROX 2400MG/30ML ORAL SUSPENSION 30 ML CUP PO PRN (15:24)
[2018-12-16] MEDS ORDERED: guaiFENesin 200 MG/10 ML 10 ML UNIT-DOSE CUPS PO PRN (15:24)
[2018-12-16] MEDS ORDERED: LOPERAMIDE HCL 2 MG CAPSULE PO PRN (15:24)
[2018-12-16] MEDS ORDERED: P-EPHED 60MG/TRIPROLIDI 2.5MG TABLET PO PRN (15:24)
[2018-12-16] MEDS ORDERED: hydrOXYzine PAMOATE 25 MG CAPSULE (FP) PO PRN (15:24)
--- NOTE | 2018-12-16 15:24 | HP ---
JEREMY MISHRA Rehab Assess/Revision - Admission History Admitted to Rehab from: [facility] Date of Admission to Rehab: 12/16/18 - Findings Detox History & Physical reviewed: Yes Concur with findings: Yes Comments/Additional Findings: for rehab as protocol Inpatient Rehab Admission - Rehab Decision to Admit Inpatient rehab admission?: Yes - Initial Determination Are CD services needed?: Yes Free of communicable disease: Yes Not in need of hospitalization: Yes - Rehab Admission Criteria Previous failed treatment: Yes Poor recovery environment: Yes Comorbidities: Yes Lacks judgement: No Patient is meeting Inpatient Rehab admission criteria:: Yes
[2018-12-16] MEDS: NICOTINE POLACRILEX 2 MG GUM BUC PRN ×2 (17:06→19:22)
[2018-12-16] MEDS: CEPHALEXIN MONOHYDRATE 500 MG CAPSULE (UD) PO SCH (17:09)
[2018-12-16] MEDS: cloNIDine HCL 0.1 MG TABLET PO PRN (21:16)
[2018-12-16] MEDS: GABAPENTIN 300 MG CAPSULE (FP) PO SCH (21:16)
[2018-12-16] MEDS: THIAMINE HCL 100 MG TABLET (FP) PO SCH (21:16)
[2018-12-16] MEDS: IBUPROFEN 400 MG TABLET (FP) PO PRN (21:17)
[2018-12-16] MEDS: BACITRACIN/POLYMYXIN B SULFATE 15 GM TUBE TP SCH (21:18)
[2018-12-17] MEDS: CEPHALEXIN MONOHYDRATE 500 MG CAPSULE (UD) PO SCH ×4 (00:06→17:55)
[2018-12-17] MEDS: METHADONE HCL 40 MG DISPERSABLE TABLET PO SCH (05:51)
[2018-12-17] MEDS: NICOTINE POLACRILEX 2 MG GUM BUC PRN (05:52)
[2018-12-17] MEDS: cloNIDine HCL 0.1 MG TABLET PO PRN ×2 (07:08→21:42)
[2018-12-17] MEDS ORDERED: NICOTINE POLACRILEX 4 MG GUM BUC PRN (07:26)
[2018-12-17] MEDS: NICOTINE POLACRILEX 4 MG GUM BUC PRN ×5 (08:35→21:44)
[2018-12-17] MEDS: PRENATAL VITAMINS W/ FOLIC ACID TABLET (FP) PO SCH (10:26)
[2018-12-17] MEDS: GABAPENTIN 300 MG CAPSULE (FP) PO SCH ×2 (10:26→21:42)
[2018-12-17] MEDS: BACITRACIN/POLYMYXIN B SULFATE 15 GM TUBE TP SCH ×2 (10:27→21:44)
--- NOTE | 2018-12-17 14:57 | PN ---
[facility] Progress Note (SOAP) Subjective: Patient with open blisters on thumb and first two fingers of left hand. States that these blisters continuously develop and burst and started 30 hours to develop after he cut his wrist several months ago. Objective: open blisters on thumb and first two fingers of left hand, decreased sensitivity to dull touch 4th and 5th fingers, later edges of hand and palm. Brisk capillary refill 5th, 4th, 3rd fingers, sluggish capillary [id number] finger and thumb of left hand. Color equal bilaterally hands, Left hand with healed blisters on palm and between thumb and first finger. Laceration scar on posterior aspect of left wrist. 12/17/18 1 12/17/18 14:57 Assessment: Blisters, chronic 12/17/18 14:58 Plan: Daily dressings with bacitracin after cleansing with saline. Discussed the need for nutritious diet with protein to promote healing. Advised follow up with primary care provider for further evaluation.
[2018-12-17 15:06] LABS: URINE APPEARANCE CLEAR; URINE BILIRUBIN NEGATIVE (NEGATIVE); URINE COLOR YELLOW; URINE GLUCOSE (UA) NEGATIVE (NEGATIVE); URINE KETONE NEGATIVE (NEGATIVE); URINE LEUK ESTERASE NEGATIVE (NEGATIVE); URINE NITRITE NEGATIVE (NEGATIVE); URINE PROTEIN NEGATIVE (NEGATIVE)
[2018-12-17] MEDS: IBUPROFEN 400 MG TABLET (FP) PO PRN (17:55)
[2018-12-17] MEDS: MELATONIN 5 MG TABLETS PO PRN (21:42)
[2018-12-17] MEDS: THIAMINE HCL 100 MG TABLET (FP) PO SCH (21:44)
[2018-12-18] MEDS: CEPHALEXIN MONOHYDRATE 500 MG CAPSULE (UD) PO SCH ×5 (00:31→23:23)
[2018-12-18] MEDS: METHADONE HCL 40 MG DISPERSABLE TABLET PO SCH (06:17)
[2018-12-18] MEDS: NICOTINE POLACRILEX 4 MG GUM BUC PRN ×6 (06:19→21:19)
[2018-12-18] MEDS: PRENATAL VITAMINS W/ FOLIC ACID TABLET (FP) PO SCH (09:50)
[2018-12-18] MEDS: GABAPENTIN 300 MG CAPSULE (FP) PO SCH ×2 (09:50→21:18)
[2018-12-18] MEDS: BACITRACIN/POLYMYXIN B SULFATE 15 GM TUBE TP SCH ×2 (09:50→21:18)
[2018-12-18] MEDS: COLLOIDAL OATMEAL 1 BAR EACH TP PRN (10:28)
[2018-12-18] MEDS ORDERED: PT OWN MED DRAWER 7, Y5N ONE ×2 (10:36→20:23)
[2018-12-18] MEDS: cloNIDine HCL 0.1 MG TABLET PO PRN ×2 (14:29→23:23)
[2018-12-18] MEDS: THIAMINE HCL 100 MG TABLET (FP) PO SCH (21:18)
[2018-12-19] MEDS: CEPHALEXIN MONOHYDRATE 500 MG CAPSULE (UD) PO SCH ×4 (06:14→23:22)
[2018-12-19] MEDS: METHADONE HCL 40 MG DISPERSABLE TABLET PO SCH (06:14)
[2018-12-19] MEDS: NICOTINE POLACRILEX 4 MG GUM BUC PRN ×5 (06:16→19:07)
[2018-12-19] MEDS: IBUPROFEN 400 MG TABLET (FP) PO PRN (08:18)
[2018-12-19] MEDS: GABAPENTIN 300 MG CAPSULE (FP) PO SCH ×2 (09:25→21:33)
[2018-12-19] MEDS: PRENATAL VITAMINS W/ FOLIC ACID TABLET (FP) PO SCH (09:25)
[2018-12-19] MEDS: BACITRACIN/POLYMYXIN B SULFATE 15 GM TUBE TP SCH ×2 (10:04→21:34)
[2018-12-19] MEDS: cloNIDine HCL 0.1 MG TABLET PO PRN (21:33)
[2018-12-19] MEDS: THIAMINE HCL 100 MG TABLET (FP) PO SCH (21:33)
[2018-12-20] MEDS: NICOTINE POLACRILEX 4 MG GUM BUC PRN ×5 (06:10→21:20)
[2018-12-20] MEDS: METHADONE HCL 40 MG DISPERSABLE TABLET PO SCH (06:10)
[2018-12-20] MEDS: CEPHALEXIN MONOHYDRATE 500 MG CAPSULE (UD) PO SCH ×4 (06:10→18:14)
[2018-12-20] MEDS: PRENATAL VITAMINS W/ FOLIC ACID TABLET (FP) PO SCH (09:27)
[2018-12-20] MEDS: GABAPENTIN 300 MG CAPSULE (FP) PO SCH ×2 (09:27→21:19)
[2018-12-20] MEDS: cloNIDine HCL 0.1 MG TABLET PO PRN ×2 (09:28→21:20)
[2018-12-20] MEDS: IBUPROFEN 400 MG TABLET (FP) PO PRN (09:29)
[2018-12-20] MEDS: BACITRACIN/POLYMYXIN B SULFATE 15 GM TUBE TP SCH ×2 (10:32→22:18)
[2018-12-20] MEDS: THIAMINE HCL 100 MG TABLET (FP) PO SCH (21:19)
[2018-12-21] MEDS: METHADONE HCL 40 MG DISPERSABLE TABLET PO SCH (05:55)
[2018-12-21] MEDS: NICOTINE POLACRILEX 4 MG GUM BUC PRN ×3 (05:58→18:08)
[2018-12-21] MEDS: CEPHALEXIN MONOHYDRATE 500 MG CAPSULE (UD) PO SCH ×3 (07:28→17:06)
[2018-12-21] MEDS: PRENATAL VITAMINS W/ FOLIC ACID TABLET (FP) PO SCH (09:36)
[2018-12-21] MEDS: BACITRACIN/POLYMYXIN B SULFATE 15 GM TUBE TP SCH ×2 (09:36→21:31)
[2018-12-21] MEDS: GABAPENTIN 300 MG CAPSULE (FP) PO SCH ×2 (09:36→21:30)
[2018-12-21] MEDS: IBUPROFEN 400 MG TABLET (FP) PO PRN (14:32)
[2018-12-21] MEDS: THIAMINE HCL 100 MG TABLET (FP) PO SCH (21:29)
[2018-12-21] MEDS: cloNIDine HCL 0.1 MG TABLET PO PRN (21:30)
[2018-12-22] MEDS: CEPHALEXIN MONOHYDRATE 500 MG CAPSULE (UD) PO SCH ×2 (00:23→06:04)
[2018-12-22] MEDS: NICOTINE POLACRILEX 4 MG GUM BUC PRN ×6 (06:05→22:28)
[2018-12-22] MEDS: METHADONE HCL 40 MG DISPERSABLE TABLET PO SCH (06:05)
[2018-12-22] MEDS ORDERED: METHADONE HCL 40 MG DISPERSABLE TABLET PO SCH (06:39)
[2018-12-22] MEDS: PRENATAL VITAMINS W/ FOLIC ACID TABLET (FP) PO SCH (10:00)
[2018-12-22] MEDS: GABAPENTIN 300 MG CAPSULE (FP) PO SCH ×2 (10:00→21:03)
[2018-12-22] MEDS: SULFAMETHOXAZOLE/TRIMETHOPRIM 800MG/160MG D.S. TABLET PO SCH ×2 (10:01→21:02)
[2018-12-22] MEDS: BACITRACIN/POLYMYXIN B SULFATE 15 GM TUBE TP SCH ×2 (10:02→21:05)
--- NOTE | 2018-12-22 12:57 | PN ---
JEREMY Progress Note Note: NOTIFIED BY RN, PATIENT REFUSING KEFLEX DUE TO GI SIDE EFFECTS OF NAUSEA AND DIARRHEA. PATIENT CURRENTLY ON ABX OF OPEN BLISTERS TO LEFT HAND. Laboratory Tests 12/17/18 12/17/18 09:25 10:10 Urine Color Yellow Urine Appearance Clear Urine pH 6.0 Ur Specific [place] 1.017 Urine Protein Negative Urine Glucose (UA) Negative Urine Ketones Negative Urine Blood Negative Urine Nitrite Negative Urine Bilirubin Negative Urine Urobilinogen 1.0 Ur Leukocyte Esterase Negative HIV 1&2 Antibody Screen Negative HIV P24 Antigen Negative Vital Signs Temperature 96.0 F L 12/22/18 07:02 Pulse Rate 54 L 12/22/18 07:02 Respiratory Rate 17 12/22/18 07:02 Blood Pressure 128/89 12/22/18 07:02 O2 Sat by Pulse Oximetry (%) PE: ALERT AND ORIENTED X 3 SKIN WARM AND DRY +PUPILS MILDLY DILATED, EOMS INTACT BL EXT FULL ROM, NO EDEMA LEFT HAND WITH MULTIPLE OPEN BLISTERS, DRY, NO DISCHARGE OR SURROUNDING REDNESS AMB AD SHELLY A/P: OPEN BLISTERS/WOUNDS WILL D/C KEFLEX ADD BACTRIM DS ONE TAB BID X 7 DAYS ENCOURAGE FLUIDS CONTINUE TO MONITOR CLINICALLY
[2018-12-22] MEDS: cloNIDine HCL 0.1 MG TABLET PO PRN (21:03)
[2018-12-22] MEDS: THIAMINE HCL 100 MG TABLET (FP) PO SCH (21:03)
[2018-12-23] MEDS: METHADONE HCL 40 MG DISPERSABLE TABLET PO SCH (06:22)
[2018-12-23] MEDS: NICOTINE POLACRILEX 4 MG GUM BUC PRN ×7 (06:22→22:43)
[2018-12-23] MEDS: PRENATAL VITAMINS W/ FOLIC ACID TABLET (FP) PO SCH (09:41)
[2018-12-23] MEDS: GABAPENTIN 300 MG CAPSULE (FP) PO SCH ×2 (09:41→21:17)
[2018-12-23] MEDS: IBUPROFEN 400 MG TABLET (FP) PO PRN ×2 (09:41→19:56)
[2018-12-23] MEDS: SULFAMETHOXAZOLE/TRIMETHOPRIM 800MG/160MG D.S. TABLET PO SCH ×2 (09:41→21:18)
[2018-12-23] MEDS: BACITRACIN/POLYMYXIN B SULFATE 15 GM TUBE TP SCH ×2 (10:42→21:18)
--- NOTE | 2018-12-23 10:56 | PN ---
S Progress Note (SOAP) Subjective: Pain on bottom of left big toe. States it started when he bent his toe and opened up a crack in the skin. Objective: General: No apparent distress Skin: dry scaly skin on bottom of feet. 12/23/18 10:55 Assessment: tinea pedis 12/23/18 10:56 Plan: Tinactin ordered.
[2018-12-23] MEDS: TOLNAFTATE 1% CREAM 15 GM TUBE TP SCH ×2 (11:50→21:18)
[2018-12-23] MEDS: cloNIDine HCL 0.1 MG TABLET PO PRN (21:18)
[2018-12-23] MEDS: THIAMINE HCL 100 MG TABLET (FP) PO SCH (21:18)
[2018-12-24] MEDS: METHADONE HCL 40 MG DISPERSABLE TABLET PO SCH (06:13)
[2018-12-24] MEDS: NICOTINE POLACRILEX 4 MG GUM BUC PRN ×5 (06:14→21:29)
[2018-12-24] MEDS ORDERED: PT OWN MED DRAWER 7, Y5N ONE (10:08)
[2018-12-24] MEDS: SULFAMETHOXAZOLE/TRIMETHOPRIM 800MG/160MG D.S. TABLET PO SCH ×2 (10:23→21:27)
[2018-12-24] MEDS: BACITRACIN/POLYMYXIN B SULFATE 15 GM TUBE TP SCH ×2 (10:23→22:05)
[2018-12-24] MEDS: GABAPENTIN 300 MG CAPSULE (FP) PO SCH ×2 (10:23→21:27)
[2018-12-24] MEDS: TOLNAFTATE 1% CREAM 15 GM TUBE TP SCH ×2 (10:24→21:28)
[2018-12-24] MEDS: PRENATAL VITAMINS W/ FOLIC ACID TABLET (FP) PO SCH (10:24)
[2018-12-24] MEDS: cloNIDine HCL 0.1 MG TABLET PO PRN (17:00)
[2018-12-24] MEDS: THIAMINE HCL 100 MG TABLET (FP) PO SCH (21:28)
[2018-12-24] MEDS: IBUPROFEN 400 MG TABLET (FP) PO PRN (22:41)
[2018-12-25] MEDS: METHADONE HCL 40 MG DISPERSABLE TABLET PO SCH (06:17)
[2018-12-25] MEDS: NICOTINE POLACRILEX 4 MG GUM BUC PRN ×6 (06:19→22:15)
[2018-12-25] MEDS: IBUPROFEN 400 MG TABLET (FP) PO PRN (09:23)
[2018-12-25] MEDS: PRENATAL VITAMINS W/ FOLIC ACID TABLET (FP) PO SCH (09:23)
[2018-12-25] MEDS: SULFAMETHOXAZOLE/TRIMETHOPRIM 800MG/160MG D.S. TABLET PO SCH ×2 (09:23→21:30)
[2018-12-25] MEDS: GABAPENTIN 300 MG CAPSULE (FP) PO SCH ×2 (09:23→21:30)
[2018-12-25] MEDS: BACITRACIN/POLYMYXIN B SULFATE 15 GM TUBE TP SCH ×2 (09:24→21:30)
[2018-12-25] MEDS: TOLNAFTATE 1% CREAM 15 GM TUBE TP SCH ×2 (09:24→21:30)
[2018-12-25] MEDS: cloNIDine HCL 0.1 MG TABLET PO PRN (22:14)
[2018-12-25] MEDS: THIAMINE HCL 100 MG TABLET (FP) PO SCH (22:19)
[2018-12-26] MEDS: METHADONE HCL 40 MG DISPERSABLE TABLET PO SCH (06:39)
[2018-12-26] MEDS: NICOTINE POLACRILEX 4 MG GUM BUC PRN ×6 (06:42→20:46)
[2018-12-26] MEDS: SULFAMETHOXAZOLE/TRIMETHOPRIM 800MG/160MG D.S. TABLET PO SCH ×2 (10:23→21:26)
[2018-12-26] MEDS: BACITRACIN/POLYMYXIN B SULFATE 15 GM TUBE TP SCH ×2 (10:23→21:26)
[2018-12-26] MEDS: PRENATAL VITAMINS W/ FOLIC ACID TABLET (FP) PO SCH (10:23)
[2018-12-26] MEDS: GABAPENTIN 300 MG CAPSULE (FP) PO SCH ×2 (10:23→21:26)
[2018-12-26] MEDS: TOLNAFTATE 1% CREAM 15 GM TUBE TP SCH ×2 (10:23→21:26)
[2018-12-26] MEDS: cloNIDine HCL 0.1 MG TABLET PO PRN (21:26)
[2018-12-26] MEDS: THIAMINE HCL 100 MG TABLET (FP) PO SCH (21:26)
[2018-12-27] MEDS: METHADONE HCL 40 MG DISPERSABLE TABLET PO SCH (06:13)
[2018-12-27] MEDS: NICOTINE POLACRILEX 4 MG GUM BUC PRN ×5 (06:13→22:12)
[2018-12-27] MEDS: BACITRACIN/POLYMYXIN B SULFATE 15 GM TUBE TP SCH ×2 (10:06→22:06)
[2018-12-27] MEDS: TOLNAFTATE 1% CREAM 15 GM TUBE TP SCH ×2 (10:06→22:06)
[2018-12-27] MEDS: SULFAMETHOXAZOLE/TRIMETHOPRIM 800MG/160MG D.S. TABLET PO SCH ×2 (10:08→22:06)
[2018-12-27] MEDS: GABAPENTIN 300 MG CAPSULE (FP) PO SCH ×2 (10:08→22:06)
[2018-12-27] MEDS: PRENATAL VITAMINS W/ FOLIC ACID TABLET (FP) PO SCH (10:08)
[2018-12-27] MEDS: THIAMINE HCL 100 MG TABLET (FP) PO SCH (22:06)
[2018-12-27] MEDS: cloNIDine HCL 0.1 MG TABLET PO PRN (22:06)
[2018-12-28] MEDS: METHADONE HCL 40 MG DISPERSABLE TABLET PO SCH (06:12)
[2018-12-28] MEDS: NICOTINE POLACRILEX 4 MG GUM BUC PRN ×6 (06:13→19:25)
[2018-12-28] MEDS: SULFAMETHOXAZOLE/TRIMETHOPRIM 800MG/160MG D.S. TABLET PO SCH ×2 (09:13→21:13)
[2018-12-28] MEDS: BACITRACIN/POLYMYXIN B SULFATE 15 GM TUBE TP SCH ×2 (09:13→21:13)
[2018-12-28] MEDS: PRENATAL VITAMINS W/ FOLIC ACID TABLET (FP) PO SCH (09:13)
[2018-12-28] MEDS: GABAPENTIN 300 MG CAPSULE (FP) PO SCH ×2 (09:13→21:13)
[2018-12-28] MEDS: TOLNAFTATE 1% CREAM 15 GM TUBE TP SCH ×2 (09:14→21:13)
[2018-12-28] MEDS: THIAMINE HCL 100 MG TABLET (FP) PO SCH (21:13)
[2018-12-28] MEDS: MELATONIN 5 MG TABLETS PO PRN (21:13)
[2018-12-28] MEDS: cloNIDine HCL 0.1 MG TABLET PO PRN (21:14)
[2018-12-29] MEDS: METHADONE HCL 40 MG DISPERSABLE TABLET PO SCH (06:07)
[2018-12-29] MEDS: NICOTINE POLACRILEX 4 MG GUM BUC PRN ×5 (06:08→17:05)
[2018-12-29] MEDS: GABAPENTIN 300 MG CAPSULE (FP) PO SCH ×2 (09:37→21:53)
[2018-12-29] MEDS: PRENATAL VITAMINS W/ FOLIC ACID TABLET (FP) PO SCH (09:38)
[2018-12-29] MEDS: BACITRACIN/POLYMYXIN B SULFATE 15 GM TUBE TP SCH ×2 (09:38→21:53)
[2018-12-29] MEDS: TOLNAFTATE 1% CREAM 15 GM TUBE TP SCH ×2 (09:38→21:53)
[2018-12-29] MEDS: IBUPROFEN 400 MG TABLET (FP) PO PRN (14:37)
[2018-12-29] MEDS ORDERED: diphenhydrAMINE HCL 50 MG CAPSULE PO ONE (19:24)
--- NOTE | 2018-12-29 19:25 | PN ---
JEREMY Progress Note Note: REcieved report from floor nurse that he is rash allergy to food he ate- wants benadryl- ordered
[2018-12-29] MEDS: cloNIDine HCL 0.1 MG TABLET PO PRN (21:52)
[2018-12-29] MEDS: THIAMINE HCL 100 MG TABLET (FP) PO SCH (21:53)
[2018-12-30] MEDS: METHADONE HCL 40 MG DISPERSABLE TABLET PO SCH (06:32)
[2018-12-30] MEDS: NICOTINE POLACRILEX 4 MG GUM BUC PRN ×4 (06:33→19:45)
[2018-12-30] MEDS: COLLOIDAL OATMEAL 1 BAR EACH TP PRN (07:08)
[2018-12-30] MEDS: PRENATAL VITAMINS W/ FOLIC ACID TABLET (FP) PO SCH (09:44)
[2018-12-30] MEDS: GABAPENTIN 300 MG CAPSULE (FP) PO SCH ×2 (09:44→21:22)
[2018-12-30] MEDS: TOLNAFTATE 1% CREAM 15 GM TUBE TP SCH ×2 (09:45→21:23)
[2018-12-30] MEDS: BACITRACIN/POLYMYXIN B SULFATE 15 GM TUBE TP SCH ×2 (09:46→21:23)
--- NOTE | 2018-12-30 12:13 | PN ---
S Progress Note Note: Pt to be discharged tomorrow. Requested Gabapentin- ordered today Pt will f/u PCP d/w pt relapse prevention d/c order done
[2018-12-30] MEDS: cloNIDine HCL 0.1 MG TABLET PO PRN (21:22)
[2018-12-30] MEDS: THIAMINE HCL 100 MG TABLET (FP) PO SCH (21:23)
[2018-12-31] MEDS: NICOTINE POLACRILEX 4 MG GUM BUC PRN ×2 (06:12→08:26)
[2018-12-31] MEDS: METHADONE HCL 40 MG DISPERSABLE TABLET PO SCH (06:12)
[2018-12-31 07:04] VITALS: BP 120/78; PULSE 50; TEMP 97
== END 2018-12-31 09:45 | disposition home or self-care (01) | DRG 772 ==
LOC: YASAS 15:18 → Y3W 15:20
PROVIDERS: ADMIT Neuromusculoskeletal Medicine & OMM; ATTEND Neuromusculoskeletal Medicine & OMM
PROC: HZ42ZZZ Group Counseling for Substance Abuse Treatment, Cognitive-Behavioral (ICD-10-PCS; principal; 2018-12-16)
DX: F13.230 Sedative, hypnotic or anxiolytic dependence with withdrawal, uncomplicated (principal); F11.20 Opioid dependence, uncomplicated; F10.99 Alcohol use, unspecified with unspecified alcohol-induced disorder; F17.213 Nicotine dependence, cigarettes, with withdrawal; E86.0 Dehydration; B35.3 Tinea pedis; L98.491 Non-pressure chronic ulcer of skin of other sites limited to breakdown of skin
CPT/HCPCS: 36415; 81003; 87389; J0735

== ENCOUNTER 2019-12-05 10:09 | Inpatient (IN) | payer OTHER ==
--- NOTE | 2019-12-05 10:36 | BHS.RME ---
Substance Use & Tx History - Substance Use History Alcohol Substance amount: 1.5 pints of vodka/4 of 12 ozs of beer Frequency of use: Daily Substance route: Oral Date of Last Use: 12/04/19 Xanax Substance amount: 6mgs Frequency of use: Daily Substance route: Oral Date of Last Use: 12/03/19 Klonopin Substance amount: 6 to 8 mgs Frequency of use: Daily Substance route: Oral Date of Last Use: 12/02/19 Methamphetamine Substance amount: 1 gram of metamphetramine 50$ Frequency of use: More than 3 times per week Date of Last Use: 12/02/19 - Last Treatment Date of last treatment: 12/16/18 Where was last treatment: Rehab Physical/Psych/Mental Status - Behavior Eye Contact: Normal - Cooperativeness Cooperativeness: Cooperative - Thinking Thought Processes: Logical Thought content: Future oriented - Physical Health Problems Is patient presently having any pain?: No Does patient presently have any injuries (include location): No Does patient currently have a fever: No CIWA Nausea/Vomitin Muscle Tremors: 3 Anxiety: 3 Agitation: 3 Paroxysmal Sweats: 1-Minimal Palms Moist Orientation: 0-Oriented Tacttile Disturbances: 1-Very Mild Itch/Numbness Auditory Disturbances: 0-None Visual Disturbances: 0-None Headache: 2-Mild CIWA-Ar Total Score: 16
--- NOTE | 2019-12-05 10:44 | HP ---
CIWA Score Nausea/Vomitin Muscle Tremors: 3 Anxiety: 3 Agitation: 3 Paroxysmal Sweats: 1-Minimal Palms Moist Orientation: 0-Oriented Tacttile Disturbances: 1-Very Mild Itch/Numbness Auditory Disturbances: 0-None Visual Disturbances: 0-None Headache: 2-Mild CIWA-Ar Total Score: 16 - Admission Criteria OASAS Guidelines: Admission for Medically Managed Detox: Requires at least one of the followin. CIWA greater than 12 2. Seizures within the past 24 hours 3. Delirium tremens within the past 24 hours 4. Hallucinations within the past 24 hours 5. Acute intervention needed for co occurring medical disorder 6. Acute intervention needed for co occurring psychiatric disorder 7. Severe withdrawal that cannot be handled at a lower level of care (continued vomiting, continued diarrhea, abnormal vital signs) requiring intravenous medication and/or fluids 8. Admitting History and Physical - Admission Chief Complaint: i need help to stop drinking alcohol,xanax,klo nopin,metamphetamine History of Present Illness: this 29 years old male with alcohol,xanax,klonopin,metamphetamin abusde,seeking detox,mmtp 210 mgs po daily mmtp,seeking detox from alcohol and xanax History Source: Patient Limitations to Obtaining History: No Limitations - Past Medical History [employer]IE[employer]: Yes: Seizure (last 2018) Additional Past Medical History: hepatitis c treated repair tendon left hand - Past Surgical History Additional Past Surgical History: repair tendon left hand ar age of [age] years old - Smoking History Smoking history: Current every day smoker Have you smoked in the past 12 months: Yes Aproximately how many cigarettes per day: 4 - Alcohol/Substance Use Hx Alcohol Use: Yes History of Substance Use: reports: Tranquilizers Date of Last Use: 12/04/19 - Social History Usual Living Arrangement: Yes: Other (homeless) Do you think of yourself as: Straight/Heterosexual ADL: Support Services Occupation: unemployed History of Recent Travel: No Other Social History: unemployed,hmeless,no legal issue,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 Admission ROS [facility] - HPI Chief Complaint: i need help to stop drinking alcohol,benzo and drug Allergies/Adverse Reactions: Allergies Allergy/AdvReac Type Severity Reaction Status Date / Time haloperidol [From Haldol] Allergy Severe Verified 12/16/18 15:55 metoclopramide [From Reglan] Allergy Intermediate Hives Verified 12/16/18 15:54 History of Present Illness: this 29 years old male with alocol,xanxax klonopin dependence,seeking detox mmtp 210 mg/day,last medicated today,has take home bottle seizure last 2018 syncope last rehab 12/16/18 12/31/18 Exam Limitations: No Limitations - Ebola screening Have you traveled outside of the country in the last 21 days: No Have you had contact with anyone from an Ebola affected area: No Have you been sick,other than usual withdrawal symptoms: No Do you have a fever: No - Review of Systems Constitutional: Loss of Appetite, Malaise, Night Sweats, Changes in sleep, Weakness, Unintentional Wgt. Loss EENT: reports: Nose Congestion Respiratory: reports: No Symptoms reported Cardiac: reports: No Symptoms Reported GI: reports: Nausea, Poor Appetite, Abdominal cramping : reports: No Symptoms Reported Musculoskeletal: reports: Back Pain, Muscle Pain Integumentary: reports: Dryness Neuro: reports: Tremors Endocrine: reports: No Symptoms Reported Hematology: reports: No Symptoms Reported Psychiatric: reports: No Sypmtoms Reported, Judgement Intact, Mood/Affect Appropiate, Orientated x3 Other Systems: Reviewed and Negative Patient History - Patient Medical History Hx Anemia: No Hx Asthma: No Hx Chronic Obstructive Pulmonary Disease (COPD): No Hx Cancer: No Hx Cardiac Disorders: No Hx Congestive Heart Failure: No Hx Hypertension: No Hx Hypercholesterolemia: No Hx Pacemaker: No HX Cerebrovascular Accident: No Hx Seizures: Yes (10/2018) Hx Dementia: No Hx Diabetes: No Hx Gastrointestinal Disorders: No Hx Liver Disease: Yes (Hep C treated) Hx Genitourinary Disorders: No Hx Sexually Transmitted Disorders: No Hx Renal Disease (ESRD): No Hx Thyroid Disease: No Hx Human Immunodeficiency Virus (HIV): No Hx Hepatitis C: Yes (treated) Hx Depression: Yes Hx Suicide Attempt: Yes (04/2018 overdose Xanax) Hx Bipolar Disorder: No Hx Schizophrenia: No Other Medical History: no sucidal,no homicidal,do not wish to see psychiatrist - Patient Surgical History Past Surgical History: Yes Hx Neurologic Surgery: No Hx Cataract Extraction: No Hx Cardiac Surgery: No Hx Lung Surgery: No Hx Breast Surgery: No Hx Breast Biopsy: No Hx Abdominal Surgery: No Hx Appendectomy: No Hx Cholecystectomy: No Hx Genitourinary Surgery: No Hx Section: No Hx Orthopedic Surgery: Yes (TENDON REPAIR ON RT MIDDLE FINGER) Other Surgical History: Surgery for cleft lip as infant. Anesthesia Reaction: No - PPD History Previous Implant?: Yes Documented Results: Negative w/o proof Implanted On Prior [facility] Admission?: Yes Date: 08/29/17 Results: 0mm PPD to be Administered?: Yes - Smoking Cessation Smoking history: Current every day smoker Have you smoked in the past 12 months: Yes Aproximately how many cigarettes per day: 4 Cigars Per Day: 0 Hx Chewing Tobacco Use: No Initiated information on smoking cessation: Yes 'Breaking Loose' booklet given: 12/05/19 - Substance & Tx. History Hx Alcohol Use: Yes Hx Substance Use: Yes Substance Use Type: Alcohol, Tranquilizers Hx Substance Use Treatment: Yes ([facility] rehab 12/16/18) - Substances abused Alcohol Substance route: Oral Frequency: Daily Amount used: 1.5 pints of vodka/4 of 12 ozs of beer Age of first use: 11 Date of last use: 12/04/19 Alprazolam (Xanax) Substance route: Oral Frequency: Daily Amount used: 6 mgs Age of first use: 15 Date of last use: 12/02/19 Benzodiazepine (Klonopin) Substance route: Oral Frequency: Daily Amount used: 6 to 8 mgs Age of first use: 15 Date of last use: 12/02/19 Methamphetamine Substance route: Injection Frequency: 3-6 times per week Amount used: 1 gram 50$ Age of first use: 20 Date of last use: 12/02/19 Admission Physical Exam S - Vital Signs Vital Signs: t97.2,p60,bp 109/74,r20 - Physical General Appearance: Yes: Moderate Distress, Tremorous, Irritable, Sweating, Anxious HEENTM: Yes: Normocephalic, LORETA, Pharynx Normal Respiratory: Yes: Lungs Clear, Normal Breath Sounds, No Respiratory Distress Neck: Yes: Within Normal Limits, Supple, Trachea in good position Breast: Yes: Within Normal Limits Cardiology: Yes: Within Normal Limits, Regular Rhythm, Regular Rate, S1, S2 Abdominal: Yes: Normal Bowel Sounds, Non Tender, Flat, Soft Genitourinary: Yes: Within Normal Limits Back: Yes: Muscle Spasm Musculoskeletal: Yes: Back pain, Muscle Pain Extremities: Yes: Tremors, Other (scar left hand) 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 NML intact, Fully Oriented, Alert, Motor Strength 5/5 Integumentary: Yes: Dry Lymphatic: Yes: Within Normal Limits - Diagnostic (1) Alcohol dependence with uncomplicated withdrawal Current Visit: No Status: Acute (2) Sedative hypnotic or anxiolytic dependence Current Visit: No Status: Acute (3) Hepatitis C Current Visit: No Status: Chronic Qualifiers: Viral hepatitis chronicity: chronic Hepatic coma status: without hepatic coma Qualified Code(s): B18.2 - Chronic viral hepatitis C (4) Methadone maintenance therapy patient Current Visit: No Status: Chronic (5) Methamphetamine abuse Current Visit: No Status: Chronic (6) Nicotine dependence Current Visit: No Status: Chronic Qualifiers: Nicotine product type: cigarettes Substance use status: in withdrawal Qualified Code(s): F17.213 - Nicotine dependence, cigarettes, with withdrawal Cleared for Admission S - Detox or Rehab [facility] Level of Care: Medically Managed Detox Regimen/Protocol: Ativan Breathalyzer - Breathalyzer Breathalyzer: 0 Urine Drug Screen - Test Device Lot number: [id number] Expiration date: 09/17/19 - Control Is test valid?: Yes - Results Drug screen NEGATIVE: No Urine drug screen results: THC-Marijuana, ANETTE-Cocaine, MOP-Opiates, MTD- Methadone, BZO-Benzodiazepines Inpatient Rehab Admission - Rehab Decision to Admit Inpatient rehab admission?: No
[2019-12-05] MEDS ORDERED: LORazepam 1 MG TABLET PO PRN (11:17)
[2019-12-05] MEDS ORDERED: ONDANSETRON *ODT* 4 MG TABLET SL ONE (11:18)
[2019-12-05] MEDS ORDERED: IBUPROFEN 400 MG TABLET (FP) PO PRN (11:18)
[2019-12-05] MEDS ORDERED: MAG HYDROX/AL HYDROX/SIMETH 30 ML UNIT-DOSE CUP PO PRN (11:18)
[2019-12-05] MEDS ORDERED: MENTHOL/PHENOL 1 EACH UD MM PRN (11:18)
[2019-12-05] MEDS ORDERED: BISMUTH SUBSALICYLATE 524 MG/30 ML UD PO PRN (11:18)
[2019-12-05] MEDS ORDERED: MAGNESIUM CITRATE 300 ML BOTTLE PO PRN (11:18)
[2019-12-05] MEDS ORDERED: MAGNESIUM HYDROX 2400MG/30ML ORAL SUSPENSION 30 ML CUP PO PRN (11:18)
[2019-12-05] MEDS ORDERED: ACETAMINOPHEN 325 MG TABLET (FP) PO PRN ×2 (11:18)
[2019-12-05] MEDS ORDERED: METHOCARBAMOL 500 MG TABLET PO PRN (11:18)
[2019-12-05 11:32] VITALS: BMI 20.6
[2019-12-05] MEDS: hydrOXYzine PAMOATE 25 MG CAPSULE (FP) PO SCH ×3 (13:21→22:22)
[2019-12-05] MEDS: LORazepam 2 MG TABLET PO SCH ×2 (17:22→22:22)
[2019-12-05] MEDS: MELATONIN 5 MG TABLETS PO SCH (22:22)
[2019-12-05] MEDS: THIAMINE HCL 100 MG TABLET (FP) PO SCH (22:23)
[2019-12-06] MEDS ORDERED: METHADONE HCL 10 MG TABLET ONE (04:31)
[2019-12-06] MEDS ORDERED: METHADONE HCL 40 MG DISPERSABLE TABLET ONE (04:31)
[2019-12-06] MEDS ORDERED: METHADONE 200 MG, METHADONE 10 MG PO ONE (06:00)
[2019-12-06] MEDS ORDERED: METHADONE HCL 10 MG TABLET PO ONE (06:00)
[2019-12-06] MEDS: LORazepam 2 MG TABLET PO SCH ×4 (06:11→22:16)
[2019-12-06] MEDS: hydrOXYzine PAMOATE 25 MG CAPSULE (FP) PO SCH (06:11)
--- NOTE | 2019-12-06 08:57 | PN ---
S CIWA - CIWA Score Nausea/Vomitin-No Nausea/No Vomiting Muscle Tremors: 3 Anxiety: 3 Agitation: 0-Normal Activity Paroxysmal Sweats: 2 Orientation: 0-Oriented Tacttile Disturbances: 1-Very Mild Itch/Numbness Auditory Disturbances: 0-None Visual Disturbances: 2-Mild Sensitivity Headache: 1-Very Mild CIWA-Ar Total Score: 12 [facility] Progress Note (SOAP) Subjective: 29 years old male admitted on 12/05/19 for alcohol and benzo withdrawal sx management treating with ativan detox regiment received methadone 210 mg po today feeling tired resting in bed aroused by touch discontinue vistaril low bmi continue ensure supplement Objective: 12/06/19 08:58 Vital Signs - 24 hr 12/05/19 12/05/19 12/05/19 11:27 12:14 16:39 Temperature 97.2 F L 96.9 F L 97.5 F L Pulse Rate 60 52 L 55 L Respiratory 20 18 17 Rate Blood Pressure 109/74 115/79 109/72 O2 Sat by Pulse 100 Oximetry (%) 12/05/19 12/06/19 12/06/19 21:00 05:24 08:48 Temperature 97.8 F 97.8 F 97.3 F L Pulse Rate 53 L 59 L 71 Respiratory 18 16 18 Rate Blood Pressure 115/76 117/70 132/87 O2 Sat by Pulse 99 98 Oximetry (%) 12/06/19 08:59 lab pending Assessment: 12/06/19 08:59 alcohol and benzo withdrawal 12/06/19 08:59 methadone program Plan: ativan regiment methadone 210 mg po daily
[2019-12-06] MEDS: PRENATAL VITAMINS W/ FOLIC ACID TABLET (FP) PO SCH (10:04)
[2019-12-06] MEDS: NICOTINE 7 MG/24 HOURS TOPICAL PATCH TD SCH (10:05)
[2019-12-06] MEDS: NICOTINE POLACRILEX 2 MG GUM BUC PRN ×2 (10:05→15:06)
[2019-12-06 12:05] LABS: HEMATOCRIT 38.6 % (35.4-49); HEMOGLOBIN 12.8 GM/dL (11.7-16.9); MCH 27.5 pg (25.7-33.7); MCHC 33.1 g/dl (32.0-35.9); MEAN CELL VOLUME 83.2 fl (80-96); MEAN PLT VOLUME 9.9 fl (7.5-11.1); PLATELET COUNT 214 K/MM3 (134-434); RBC 4.64 M/mm3 (4.00-5.60); RDW 13.6 % (11.9-15.9)
[2019-12-06 12:21] LABS: ALBUMIN 2.9 g/dl (3.4-5.0); BILIRUBIN,TOTAL 0.4 mg/dL (0.2-1); BLOOD UREA NITROGEN 11.3 mg/dL (7-18); CALCIUM 8.5 mg/dL (8.5-10.1); CREATININE 0.8 mg/dL (0.55-1.3); POTASSIUM 4.2 mmol/L (3.5-5.1); TOT PROT 5.6 g/dl (6.4-8.2)
[2019-12-06] MEDS: THIAMINE HCL 100 MG TABLET (FP) PO SCH (22:16)
[2019-12-06] MEDS: MELATONIN 5 MG TABLETS PO SCH (22:16)
[2019-12-07] MEDS: LORazepam 1 MG TABLET PO SCH ×4 (06:14→22:36)
[2019-12-07] MEDS: NICOTINE POLACRILEX 2 MG GUM BUC PRN ×4 (06:16→21:48)
[2019-12-07] MEDS ORDERED: METHADONE HCL 10 MG TABLET PO SCH (07:45)
[2019-12-07] MEDS ORDERED: METHADONE HCL 10 MG TABLET ONE (08:52)
[2019-12-07] MEDS ORDERED: METHADONE HCL 40 MG DISPERSABLE TABLET ONE (08:52)
[2019-12-07] MEDS: METHADONE 200 MG, METHADONE 10 MG PO SCH (09:10)
[2019-12-07] MEDS: NICOTINE 7 MG/24 HOURS TOPICAL PATCH TD SCH (09:11)
[2019-12-07] MEDS: PRENATAL VITAMINS W/ FOLIC ACID TABLET (FP) PO SCH (09:11)
--- NOTE | 2019-12-07 09:50 | PN ---
[facility] CIWA - CIWA Score Nausea/Vomitin-Mild Nausea/No Vomiting Muscle Tremors: 3 Anxiety: 2 Agitation: 2 Paroxysmal Sweats: No Perspiration Orientation: 0-Oriented Tacttile Disturbances: 0-None Auditory Disturbances: 0-None Visual Disturbances: 2-Mild Sensitivity Headache: 0-None Present CIWA-Ar Total Score: 10 S Progress Note (SOAP) Subjective: 29 years old male admitted on 12/05/19 for alcohol and benzo withdrawal sx ma nagement treating with ativan detox regiment received methadone 210 mg po today ate breakfast took ensure 1 can resting in bed limited conversation with staff Objective: 12/07/19 10:04 Vital Signs - 24 hr 12/06/19 12/06/19 12/06/19 13:23 16:55 20:57 Temperature 97.3 F L 96.9 F L 98.2 F Pulse Rate 73 60 72 Respiratory 18 18 18 Rate Blood Pressure 113/66 102/66 110/72 O2 Sat by Pulse 97 99 Oximetry (%) 12/07/19 12/07/19 06:43 08:40 Temperature 97.7 F 97.1 F L Pulse Rate 55 L 76 Respiratory 18 18 Rate Blood Pressure 112/69 105/70 O2 Sat by Pulse 99 Oximetry (%) Laboratory Tests 12/06/19 12/06/19 12/06/19 07:25 07:25 07:25 WBC 5.0 RBC 4.64 Hgb 12.8 Hct 38.6 MCV 83.2 MCH 27.5 MCHC 33.1 RDW 13.6 Plt Count 214 MPV 9.9 Sodium 140 Potassium 4.2 Chloride 104 Carbon Dioxide 33 H Anion Gap 3 L BUN 11.3 Creatinine 0.8 Est GFR (CKD-EPI)AfAm 137.96 Est GFR (CKD-EPI)NonAf 119.03 Random Glucose 77 Calcium 8.5 Total Bilirubin 0.4 AST 13 L ALT 20 Alkaline Phosphatase 60 Total Protein 5.6 L Albumin 2.9 L Syphilis Serology Non-reactive 12/07/19 10:04 covid pending Assessment: 12/07/19 10:04 alcohol and benzo withdrawal Plan: ativan regiment
[2019-12-07 10:13] LABS: PH,URINE 8.5 (5.0-8.0); URINE APPEARANCE CLEAR; URINE BILIRUBIN NEGATIVE (NEGATIVE); URINE COLOR YELLOW; URINE GLUCOSE (UA) NEGATIVE (NEGATIVE); URINE KETONE NEGATIVE (NEGATIVE); URINE LEUK ESTERASE NEGATIVE (NEGATIVE); URINE NITRITE NEGATIVE (NEGATIVE); URINE PROTEIN NEGATIVE (NEGATIVE)
[2019-12-07] MEDS: MELATONIN 5 MG TABLETS PO SCH (22:36)
[2019-12-07] MEDS: THIAMINE HCL 100 MG TABLET (FP) PO SCH (22:36)
[2019-12-08] MEDS ORDERED: LORazepam 0.5 MG TABLET PO PRN
[2019-12-08] MEDS ORDERED: METHADONE HCL 10 MG TABLET ONE (04:32)
[2019-12-08] MEDS ORDERED: METHADONE HCL 40 MG DISPERSABLE TABLET ONE (04:32)
[2019-12-08] MEDS: LORazepam 0.5 MG TABLET PO SCH ×4 (06:03→22:31)
[2019-12-08] MEDS: METHADONE 200 MG, METHADONE 10 MG PO SCH (06:03)
[2019-12-08] MEDS: NICOTINE POLACRILEX 2 MG GUM BUC PRN ×2 (06:08→10:10)
[2019-12-08] MEDS: NICOTINE 7 MG/24 HOURS TOPICAL PATCH TD SCH (10:09)
[2019-12-08] MEDS: PRENATAL VITAMINS W/ FOLIC ACID TABLET (FP) PO SCH (10:09)
--- NOTE | 2019-12-08 14:08 | PN ---
S CIWA - CIWA Score Nausea/Vomitin-Mild Nausea/No Vomiting Muscle Tremors: 2 Anxiety: 2 Agitation: 2 Paroxysmal Sweats: No Perspiration Orientation: 0-Oriented Tacttile Disturbances: 1-Very Mild Itch/Numbness Auditory Disturbances: 0-None Visual Disturbances: 0-None Headache: 1-Very Mild CIWA-Ar Total Score: 9 S Progress Note (SOAP) Subjective: alert,irritable,anxious,interrupted sleep,,aching pain Objective: 12/08/19 15:05 Vital Signs Temperature 97.5 F L 12/08/19 12:40 Pulse Rate 63 12/08/19 12:40 Respiratory Rate 16 12/08/19 12:40 Blood Pressure 110/65 12/08/19 12:40 O2 Sat by Pulse Oximetry (%) 96 12/08/19 12:40 Laboratory Last Values WBC 5.0 K/mm3 (4.0-10.0) 12/06/19 07:25 RBC 4.64 M/mm3 (4.00-5.60) 12/06/19 07:25 Hgb 12.8 GM/dL (11.7-16.9) 12/06/19 07:25 Hct 38.6 % (35.4-49) 12/06/19 07:25 MCV 83.2 fl (80-96) 12/06/19 07:25 MCH 27.5 pg (25.7-33.7) 12/06/19 07:25 MCHC 33.1 g/dl (32.0-35.9) 12/06/19 07:25 RDW 13.6 % (11.9-15.9) 12/06/19 07:25 Plt Count 214 K/MM3 (134-434) 12/06/19 07:25 MPV 9.9 fl (7.5-11.1) 12/06/19 07:25 Sodium 140 mmol/L (136-145) 12/06/19 07:25 Potassium 4.2 mmol/L (3.5-5.1) 12/06/19 07:25 Chloride 104 mmol/L (98-107) 12/06/19 07:25 Carbon Dioxide 33 mmol/L (21-32) H 12/06/19 07:25 Anion Gap 3 MMOL/L (8-16) L 12/06/19 07:25 BUN 11.3 mg/dL (7-18) 12/06/19 07:25 Creatinine 0.8 mg/dL (0.55-1.3) 12/06/19 07:25 Est GFR (CKD-EPI)AfAm 137.96 12/06/19 07:25 Est GFR (CKD-EPI)NonAf 119.03 12/06/19 07:25 Random Glucose 77 mg/dL (74-106) 12/06/19 07:25 Calcium 8.5 mg/dL (8.5-10.1) 12/06/19 07:25 Total Bilirubin 0.4 mg/dL (0.2-1) 12/06/19 07:25 AST 13 U/L (15-37) L 12/06/19 07:25 ALT 20 U/L (13-61) 12/06/19 07:25 Alkaline Phosphatase 60 U/L (45-117) 12/06/19 07:25 Total Protein 5.6 g/dl (6.4-8.2) L 12/06/19 07:25 Albumin 2.9 g/dl (3.4-5.0) L 12/06/19 07:25 Urine Color Yellow 12/07/19 08:15 Urine Appearance Clear 12/07/19 08:15 Urine pH 8.5 (5.0-8.0) H D 12/07/19 08:15 Ur Specific [place] 1.014 (1.010-1.035) 12/07/19 08:15 Urine Protein Negative (NEGATIVE) 12/07/19 08:15 Urine Glucose (UA) Negative (NEGATIVE) 12/07/19 08:15 Urine Ketones Negative (NEGATIVE) 12/07/19 08:15 Urine Blood Negative (NEGATIVE) 12/07/19 08:15 Urine Nitrite Negative (NEGATIVE) 12/07/19 08:15 Urine Bilirubin Negative (NEGATIVE) 12/07/19 08:15 Urine Urobilinogen 1.0 mg/dL (0.2-1.0) 12/07/19 08:15 Ur Leukocyte Esterase Negative (NEGATIVE) 12/07/19 08:15 Syphilis Serology Non-reactive (NONREACTIVE) 12/06/19 07:25 COVID-19 (ELISA) Not detected (Not Detected) 12/05/19 11:46 Assessment: 12/08/19 15:06 withdrawal symptom Plan: continue detox ativan regimen,continue methadon 210 mgs po daily maintenance,discharge in am
[2019-12-08] MEDS: NICOTINE POLACRILEX 4 MG GUM BUC PRN ×2 (17:58→22:32)
[2019-12-08] MEDS: MELATONIN 5 MG TABLETS PO SCH (22:31)
[2019-12-08] MEDS: THIAMINE HCL 100 MG TABLET (FP) PO SCH (22:31)
[2019-12-09] MEDS ORDERED: METHADONE HCL 10 MG TABLET ONE (04:15)
[2019-12-09] MEDS ORDERED: METHADONE HCL 40 MG DISPERSABLE TABLET ONE (04:16)
[2019-12-09] MEDS ORDERED: LORazepam 0.5 MG TABLET PO ONE (05:00)
[2019-12-09] MEDS: METHADONE 200 MG, METHADONE 10 MG PO SCH (05:16)
[2019-12-09] MEDS: NICOTINE POLACRILEX 4 MG GUM BUC PRN (05:16)
[2019-12-09 09:03] VITALS: BP 114/66; PULSE 62; TEMP 97.5
--- NOTE | 2019-12-09 09:59 | PN ---
[facility] CIWA - CIWA Score Nausea/Vomitin-No Nausea/No Vomiting Muscle Tremors: None Anxiety: 1-Mildly Anxious Agitation: 0-Normal Activity Orientation: 0-Oriented Tacttile Disturbances: 0-None Auditory Disturbances: 0-None Visual Disturbances: 0-None Headache: 0-None Present [facility] Progress Note (SOAP) Subjective: alert,no complaint Objective: 12/09/19 09:54 Vital Signs Temperature 97.5 F L 12/09/19 09:02 Pulse Rate 62 12/09/19 09:02 Respiratory Rate 18 12/09/19 09:02 Blood Pressure 114/66 12/09/19 09:02 O2 Sat by Pulse Oximetry (%) 98 12/09/19 06:10 Assessment: 12/09/19 09:55 detox completed,no withdrawal symptom Plan: stable for discharge today,follow up with after care program as arrangement
--- NOTE | 2019-12-09 10:01 | DS ---
[facility] Detox Discharge Summary Admission Date: 12/05/19 Discharge Date: 12/09/19 - History Present History: Alcohol Dependence, Sedative Dependence, MMTP Additional Comments: alert,oriented x3 lung clear on auscultation bilaterally abdomen soft,no distension,no pain no tenderness ambulation on the unit detox completed,no withdrawal symptom patient is stable for discharge today follow up with after care program as arrangement [facility] Pertinent Past History: insomnia hepatitis c - Physical Exam Results Vital Signs: Vital Signs Temperature 97.5 F L 12/09/19 09:02 Pulse Rate 62 12/09/19 09:02 Respiratory Rate 18 12/09/19 09:02 Blood Pressure 114/66 12/09/19 09:02 O2 Sat by Pulse Oximetry (%) 98 12/09/19 06:10 Pertinent Admission Physical Exam Findings: withdrawal signs and symptom Vital Signs Temperature 97.5 F L 12/09/19 09:02 Pulse Rate 62 12/09/19 09:02 Respiratory Rate 18 12/09/19 09:02 Blood Pressure 114/66 12/09/19 09:02 O2 Sat by Pulse Oximetry (%) 98 12/09/19 06:10 Laboratory Last Values WBC 5.0 K/mm3 (4.0-10.0) 12/06/19 07:25 RBC 4.64 M/mm3 (4.00-5.60) 12/06/19 07:25 Hgb 12.8 GM/dL (11.7-16.9) 12/06/19 07:25 Hct 38.6 % (35.4-49) 12/06/19 07:25 MCV 83.2 fl (80-96) 12/06/19 07:25 MCH 27.5 pg (25.7-33.7) 12/06/19 07:25 MCHC 33.1 g/dl (32.0-35.9) 12/06/19 07:25 RDW 13.6 % (11.9-15.9) 12/06/19 07:25 Plt Count 214 K/MM3 (134-434) 12/06/19 07:25 MPV 9.9 fl (7.5-11.1) 12/06/19 07:25 Sodium 140 mmol/L (136-145) 12/06/19 07:25 Potassium 4.2 mmol/L (3.5-5.1) 12/06/19 07:25 Chloride 104 mmol/L (98-107) 12/06/19 07:25 Carbon Dioxide 33 mmol/L (21-32) H 12/06/19 07:25 Anion Gap 3 MMOL/L (8-16) L 12/06/19 07:25 BUN 11.3 mg/dL (7-18) 12/06/19 07:25 Creatinine 0.8 mg/dL (0.55-1.3) 12/06/19 07:25 Est GFR (CKD-EPI)AfAm 137.96 12/06/19 07:25 Est GFR (CKD-EPI)NonAf 119.03 12/06/19 07:25 Random Glucose 77 mg/dL (74-106) 12/06/19 07:25 Calcium 8.5 mg/dL (8.5-10.1) 12/06/19 07:25 Total Bilirubin 0.4 mg/dL (0.2-1) 12/06/19 07:25 AST 13 U/L (15-37) L 12/06/19 07:25 ALT 20 U/L (13-61) 12/06/19 07:25 Alkaline Phosphatase 60 U/L (45-117) 12/06/19 07:25 Total Protein 5.6 g/dl (6.4-8.2) L 12/06/19 07:25 Albumin 2.9 g/dl (3.4-5.0) L 12/06/19 07:25 Urine Color Yellow 12/07/19 08:15 Urine Appearance Clear 12/07/19 08:15 Urine pH 8.5 (5.0-8.0) H D 12/07/19 08:15 Ur Specific [place] 1.014 (1.010-1.035) 12/07/19 08:15 Urine Protein Negative (NEGATIVE) 12/07/19 08:15 Urine Glucose (UA) Negative (NEGATIVE) 12/07/19 08:15 Urine Ketones Negative (NEGATIVE) 12/07/19 08:15 Urine Blood Negative (NEGATIVE) 12/07/19 08:15 Urine Nitrite Negative (NEGATIVE) 12/07/19 08:15 Urine Bilirubin Negative (NEGATIVE) 12/07/19 08:15 Urine Urobilinogen 1.0 mg/dL (0.2-1.0) 12/07/19 08:15 Ur Leukocyte Esterase Negative (NEGATIVE) 12/07/19 08:15 Syphilis Serology Non-reactive (NONREACTIVE) 12/06/19 07:25 COVID-19 (ELISA) Not detected (Not Detected) 12/05/19 11:46 - Treatment Hospital Course: Detox Protocol Followed, Detoxed Safely, Responded well, Rehab Referral Accepted Patient has Accepted [facility] Referral [facility] - Medication Discharge Medications: Ambulatory Orders Methadone [Dolophine -] 210 mg PO DAILY 12/05/19 - Diagnosis (1) Alcohol dependence with uncomplicated withdrawal Current Visit: No Status: Acute (2) Sedative hypnotic or anxiolytic dependence Current Visit: No Status: Acute (3) Hepatitis C Current Visit: No Status: Chronic Qualifiers: Viral hepatitis chronicity: chronic Hepatic coma status: without hepatic coma Qualified Code(s): B18.2 - Chronic viral hepatitis C (4) Methadone maintenance therapy patient Current Visit: No Status: Chronic (5) Methamphetamine abuse Current Visit: No Status: Chronic (6) Nicotine dependence Current Visit: No Status: Chronic Qualifiers: Nicotine product type: cigarettes Substance use status: in withdrawal Qualified Code(s): F17.213 - Nicotine dependence, cigarettes, with withdrawal - AMA Did Patient Leave Against Medical Advice: No
[2019-12-09] MEDS: NICOTINE 7 MG/24 HOURS TOPICAL PATCH TD SCH (10:05)
[2019-12-09] MEDS: PRENATAL VITAMINS W/ FOLIC ACID TABLET (FP) PO SCH (10:06)
== END 2019-12-09 11:06 | disposition other institution (70) | DRG 773 ==
LOC: YASAS 10:09 → Y3N 11:44
PROVIDERS: ADMIT Allergy & Immunology; ATTEND Allergy & Immunology
PROC: HZ2ZZZZ Detoxification Services for Substance Abuse Treatment (ICD-10-PCS; principal; 2019-12-05)
DX: F10.230 Alcohol dependence with withdrawal, uncomplicated (principal); F11.20 Opioid dependence, uncomplicated; F13.230 Sedative, hypnotic or anxiolytic dependence with withdrawal, uncomplicated; F15.10 Other stimulant abuse, uncomplicated; F17.210 Nicotine dependence, cigarettes, uncomplicated; F19.230 Other psychoactive substance dependence with withdrawal, uncomplicated; F32.9 Major depressive disorder, single episode, unspecified; G47.00 Insomnia, unspecified; Z86.19 Personal history of other infectious and parasitic diseases; Z86.69 Personal history of other diseases of the nervous system and sense organs; Z98.890 Other specified postprocedural states; Z88.8 Allergy status to other drugs, medicaments and biological substances; Z59.0 Homelessness
CPT/HCPCS: 36415; 80053; 81003; 85027; 86780; U0003

== ENCOUNTER 2019-12-09 10:33 | Inpatient (IN) | payer OTHER ==
[2019-12-09] MEDS ORDERED: MENTHOL/PHENOL 1 EACH UD MM PRN (12:13)
[2019-12-09] MEDS ORDERED: LOPERAMIDE HCL 2 MG CAPSULE PO PRN (12:13)
[2019-12-09] MEDS ORDERED: P-EPHED 60MG/TRIPROLIDI 2.5MG TABLET PO PRN (12:13)
[2019-12-09] MEDS ORDERED: guaiFENesin 200 MG/10 ML 10 ML UNIT-DOSE CUPS PO PRN (12:13)
[2019-12-09] MEDS ORDERED: MAG HYDROX/AL HYDROX/SIMETH 30 ML UNIT-DOSE CUP PO PRN (12:13)
[2019-12-09] MEDS ORDERED: MAGNESIUM CITRATE 300 ML BOTTLE PO PRN (12:13)
[2019-12-09] MEDS ORDERED: MAGNESIUM HYDROX 2400MG/30ML ORAL SUSPENSION 30 ML CUP PO PRN (12:13)
[2019-12-09] MEDS: NICOTINE POLACRILEX 2 MG GUM BUC PRN (20:37)
[2019-12-09] MEDS: MELATONIN 5 MG TABLETS PO SCH (21:40)
[2019-12-09] MEDS: THIAMINE HCL 100 MG TABLET (FP) PO SCH (21:40)
[2019-12-10] MEDS ORDERED: METHADONE HCL 10 MG TABLET PO SCH (06:00)
[2019-12-10] MEDS ORDERED: METHADONE HCL 10 MG TABLET ONE (06:07)
[2019-12-10] MEDS ORDERED: METHADONE HCL 40 MG DISPERSABLE TABLET ONE (06:08)
[2019-12-10] MEDS: METHADONE 200 MG, METHADONE 10 MG PO SCH (06:32)
[2019-12-10] MEDS: NICOTINE POLACRILEX 2 MG GUM BUC PRN (09:55)
[2019-12-10] MEDS: PRENATAL VITAMINS W/ FOLIC ACID TABLET (FP) PO SCH (09:55)
[2019-12-10] MEDS: NICOTINE 7 MG/24 HOURS TOPICAL PATCH TD SCH (09:55)
--- NOTE | 2019-12-10 12:14 | EKG ---
Test Reason : Blood Pressure : / mmHG Vent. Rate : 065 BPM Atrial Rate : 065 BPM P-R Int : 142 ms QRS Dur : 092 ms QT Int : 408 ms P-R-T Axes : 017 075 -67 degrees QTc Int : 424 ms NORMAL SINUS RHYTHM NONSPECIFIC T WAVE ABNORMALITY ABNORMAL ECG WHEN COMPARED WITH ECG OF 27-AUG-2017 20:24, NO SIGNIFICANT CHANGE WAS FOUND Confirmed by NELY CHOI MD ([id number]) on 12/10/2019 12:14:17 PM Referred By: Confirmed By:NELY CHOI MD
[2019-12-10] MEDS: NICOTINE POLACRILEX 4 MG GUM BUC PRN (17:48)
[2019-12-10] MEDS: THIAMINE HCL 100 MG TABLET (FP) PO SCH (21:40)
[2019-12-10] MEDS: MELATONIN 5 MG TABLETS PO SCH (21:40)
[2019-12-11] MEDS ORDERED: METHADONE HCL 10 MG TABLET ONE (05:22)
[2019-12-11] MEDS ORDERED: METHADONE HCL 40 MG DISPERSABLE TABLET ONE (05:22)
[2019-12-11] MEDS: METHADONE 200 MG, METHADONE 10 MG PO SCH (06:52)
[2019-12-11] MEDS: NICOTINE POLACRILEX 4 MG GUM BUC PRN ×4 (07:53→20:06)
[2019-12-11] MEDS: PRENATAL VITAMINS W/ FOLIC ACID TABLET (FP) PO SCH (10:14)
[2019-12-11] MEDS: NICOTINE 7 MG/24 HOURS TOPICAL PATCH TD SCH (10:14)
[2019-12-11] MEDS: THIAMINE HCL 100 MG TABLET (FP) PO SCH (21:32)
[2019-12-11] MEDS: MELATONIN 5 MG TABLETS PO SCH (21:32)
[2019-12-12] MEDS ORDERED: METHADONE HCL 10 MG TABLET ONE (03:25)
[2019-12-12] MEDS ORDERED: METHADONE HCL 40 MG DISPERSABLE TABLET ONE (03:25)
[2019-12-12] MEDS: METHADONE 200 MG, METHADONE 10 MG PO SCH (06:26)
[2019-12-12] MEDS: PRENATAL VITAMINS W/ FOLIC ACID TABLET (FP) PO SCH (09:55)
[2019-12-12] MEDS: NICOTINE 7 MG/24 HOURS TOPICAL PATCH TD SCH (09:55)
[2019-12-12] MEDS: NICOTINE POLACRILEX 4 MG GUM BUC PRN ×4 (09:56→21:16)
[2019-12-12] MEDS: THIAMINE HCL 100 MG TABLET (FP) PO SCH (21:15)
[2019-12-12] MEDS: MELATONIN 5 MG TABLETS PO SCH (21:15)
[2019-12-13] MEDS ORDERED: METHADONE HCL 10 MG TABLET ONE (03:16)
[2019-12-13] MEDS ORDERED: METHADONE HCL 40 MG DISPERSABLE TABLET ONE (03:17)
[2019-12-13] MEDS: METHADONE 200 MG, METHADONE 10 MG PO SCH (06:49)
[2019-12-13] MEDS: NICOTINE POLACRILEX 4 MG GUM BUC PRN ×3 (06:54→19:30)
[2019-12-13] MEDS ORDERED: PT OWN MED DRAWER 7, Y5N ONE (08:49)
[2019-12-13] MEDS: PRENATAL VITAMINS W/ FOLIC ACID TABLET (FP) PO SCH (09:47)
[2019-12-13] MEDS: NICOTINE 7 MG/24 HOURS TOPICAL PATCH TD SCH (09:47)
[2019-12-13] MEDS: THIAMINE HCL 100 MG TABLET (FP) PO SCH (22:21)
[2019-12-13] MEDS: MELATONIN 5 MG TABLETS PO SCH (22:21)
[2019-12-14] MEDS ORDERED: METHADONE HCL 40 MG DISPERSABLE TABLET ONE (03:46)
[2019-12-14] MEDS ORDERED: METHADONE HCL 10 MG TABLET ONE (03:46)
[2019-12-14] MEDS: METHADONE 200 MG, METHADONE 10 MG PO SCH (06:31)
[2019-12-14] MEDS: NICOTINE POLACRILEX 4 MG GUM BUC PRN ×4 (06:33→17:53)
[2019-12-14] MEDS: NICOTINE 7 MG/24 HOURS TOPICAL PATCH TD SCH (10:24)
[2019-12-14] MEDS: PRENATAL VITAMINS W/ FOLIC ACID TABLET (FP) PO SCH (10:24)
[2019-12-14] MEDS: MELATONIN 5 MG TABLETS PO SCH (21:39)
[2019-12-14] MEDS: THIAMINE HCL 100 MG TABLET (FP) PO SCH (21:40)
[2019-12-15] MEDS ORDERED: METHADONE HCL 40 MG DISPERSABLE TABLET ONE (05:22)
[2019-12-15] MEDS ORDERED: METHADONE HCL 10 MG TABLET ONE (05:22)
[2019-12-15] MEDS: METHADONE 200 MG, METHADONE 10 MG PO SCH (06:46)
[2019-12-15] MEDS ORDERED: PT OWN MED DRAWER 7, Y5N ONE ×2 (09:28→13:41)
[2019-12-15] MEDS: NICOTINE 7 MG/24 HOURS TOPICAL PATCH TD SCH (10:04)
[2019-12-15] MEDS: PRENATAL VITAMINS W/ FOLIC ACID TABLET (FP) PO SCH (10:04)
[2019-12-15] MEDS: NICOTINE POLACRILEX 4 MG GUM BUC PRN ×2 (10:22→16:40)
[2019-12-15] MEDS: MELATONIN 5 MG TABLETS PO SCH (21:09)
[2019-12-15] MEDS: THIAMINE HCL 100 MG TABLET (FP) PO SCH (21:09)
[2019-12-16] MEDS ORDERED: METHADONE HCL 10 MG TABLET ONE (06:15)
[2019-12-16] MEDS ORDERED: METHADONE HCL 40 MG DISPERSABLE TABLET ONE (06:15)
[2019-12-16] MEDS: METHADONE 200 MG, METHADONE 10 MG PO SCH (06:41)
[2019-12-16] MEDS: NICOTINE POLACRILEX 4 MG GUM BUC PRN ×5 (06:42→21:10)
[2019-12-16] MEDS: PRENATAL VITAMINS W/ FOLIC ACID TABLET (FP) PO SCH (09:21)
[2019-12-16] MEDS: NICOTINE 7 MG/24 HOURS TOPICAL PATCH TD SCH (09:21)
[2019-12-16] MEDS ORDERED: PT OWN MED DRAWER 7, Y5N ONE ×2 (13:45→15:58)
[2019-12-16] MEDS: ACETAMINOPHEN 325 MG TABLET (FP) PO PRN ×2 (16:58→21:09)
[2019-12-16] MEDS: MELATONIN 5 MG TABLETS PO SCH (21:07)
[2019-12-16] MEDS: THIAMINE HCL 100 MG TABLET (FP) PO SCH (21:08)
[2019-12-17] MEDS ORDERED: METHADONE HCL 40 MG DISPERSABLE TABLET ONE (06:06)
[2019-12-17] MEDS ORDERED: METHADONE HCL 10 MG TABLET ONE (06:06)
[2019-12-17] MEDS: METHADONE 200 MG, METHADONE 10 MG PO SCH (06:08)
[2019-12-17] MEDS: NICOTINE POLACRILEX 4 MG GUM BUC PRN ×5 (06:10→19:38)
[2019-12-17] MEDS: NICOTINE 7 MG/24 HOURS TOPICAL PATCH TD SCH (09:58)
[2019-12-17] MEDS: PRENATAL VITAMINS W/ FOLIC ACID TABLET (FP) PO SCH (09:58)
--- NOTE | 2019-12-17 10:09 | PN ---
[facility] Progress Note Note: patient admitted to [facility] yesterday. Labs, Home medications, problem list reviewed, admission note and detox note reviewed. Patient seen and examined P/E; General; no apparent distress HEENTM: PERLLA, normocephalic, EOMI Neck: supple RESP: unlabored, no use of accessory muscles MSK: Full ROM, steady gait, full weight bearing Neuro: CN 2-12 intact, muscle strength equal EXT: small laceration on plantar aspect of left great toe, dry Vital Signs Period Temp Pulse Resp BP Sys/Mustafa Pulse Ox Last 24 Hr 97.1 F 62 20 108/74 99 Plan: continue rehab treatment Hydration, nutrition Maintain safety cream for feet
[2019-12-17] MEDS ORDERED: PT OWN MED DRAWER 7, Y5N ONE ×2 (14:41→22:50)
[2019-12-17] MEDS: CLOTRIMAZOLE 1% CREAM 15 GM TUBE TP SCH ×2 (19:38→21:16)
[2019-12-17] MEDS: THIAMINE HCL 100 MG TABLET (FP) PO SCH (21:13)
[2019-12-17] MEDS: MELATONIN 5 MG TABLETS PO SCH (21:13)
[2019-12-17] MEDS: ACETAMINOPHEN 325 MG TABLET (FP) PO PRN (21:14)
[2019-12-18] MEDS ORDERED: METHADONE HCL 40 MG DISPERSABLE TABLET ONE (06:14)
[2019-12-18] MEDS ORDERED: METHADONE HCL 10 MG TABLET ONE (06:14)
[2019-12-18] MEDS: METHADONE 200 MG, METHADONE 10 MG PO SCH (06:18)
[2019-12-18] MEDS: NICOTINE POLACRILEX 4 MG GUM BUC PRN ×5 (06:20→20:08)
[2019-12-18] MEDS: NICOTINE 7 MG/24 HOURS TOPICAL PATCH TD SCH (09:23)
[2019-12-18] MEDS: CLOTRIMAZOLE 1% CREAM 15 GM TUBE TP SCH ×2 (09:23→22:06)
[2019-12-18] MEDS: PRENATAL VITAMINS W/ FOLIC ACID TABLET (FP) PO SCH (09:23)
[2019-12-18] MEDS ORDERED: PT OWN MED DRAWER 7, Y5N ONE (20:13)
[2019-12-18] MEDS: THIAMINE HCL 100 MG TABLET (FP) PO SCH (22:06)
[2019-12-18] MEDS: MELATONIN 5 MG TABLETS PO SCH (22:06)
[2019-12-19] MEDS ORDERED: METHADONE HCL 10 MG TABLET ONE (06:04)
[2019-12-19] MEDS ORDERED: METHADONE HCL 40 MG DISPERSABLE TABLET ONE (06:04)
[2019-12-19] MEDS: METHADONE 200 MG, METHADONE 10 MG PO SCH (06:11)
[2019-12-19] MEDS: NICOTINE POLACRILEX 4 MG GUM BUC PRN ×6 (06:13→21:18)
[2019-12-19] MEDS: PRENATAL VITAMINS W/ FOLIC ACID TABLET (FP) PO SCH (10:01)
[2019-12-19] MEDS: NICOTINE 7 MG/24 HOURS TOPICAL PATCH TD SCH (10:01)
[2019-12-19] MEDS: CLOTRIMAZOLE 1% CREAM 15 GM TUBE TP SCH ×2 (10:02→21:17)
[2019-12-19] MEDS: MELATONIN 5 MG TABLETS PO SCH (21:16)
[2019-12-19] MEDS: THIAMINE HCL 100 MG TABLET (FP) PO SCH (21:16)
[2019-12-19] MEDS ORDERED: PT OWN MED DRAWER 7, Y5N ONE (22:57)
[2019-12-20] MEDS ORDERED: MASKS NR ONE (05:51)
[2019-12-20] MEDS ORDERED: METHADONE HCL 10 MG TABLET ONE (05:52)
[2019-12-20] MEDS ORDERED: METHADONE HCL 40 MG DISPERSABLE TABLET ONE (05:53)
[2019-12-20] MEDS ORDERED: PT OWN MED DRAWER 7, Y5N ONE ×2 (06:06→21:42)
[2019-12-20] MEDS: METHADONE 200 MG, METHADONE 10 MG PO SCH (06:07)
[2019-12-20] MEDS: ACETAMINOPHEN 325 MG TABLET (FP) PO PRN ×2 (06:09→21:03)
[2019-12-20] MEDS: NICOTINE POLACRILEX 4 MG GUM BUC PRN ×4 (06:10→21:04)
[2019-12-20] MEDS: NICOTINE 7 MG/24 HOURS TOPICAL PATCH TD SCH (09:32)
[2019-12-20] MEDS: CLOTRIMAZOLE 1% CREAM 15 GM TUBE TP SCH ×2 (09:33→21:04)
[2019-12-20] MEDS: PRENATAL VITAMINS W/ FOLIC ACID TABLET (FP) PO SCH (09:34)
[2019-12-20] MEDS: THIAMINE HCL 100 MG TABLET (FP) PO SCH (21:04)
[2019-12-20] MEDS: MELATONIN 5 MG TABLETS PO SCH (21:04)
[2019-12-21] MEDS ORDERED: METHADONE HCL 10 MG TABLET ONE (05:34)
[2019-12-21] MEDS ORDERED: METHADONE HCL 40 MG DISPERSABLE TABLET ONE (05:35)
[2019-12-21] MEDS: METHADONE 200 MG, METHADONE 10 MG PO SCH (06:20)
[2019-12-21] MEDS: NICOTINE POLACRILEX 4 MG GUM BUC PRN ×6 (06:22→21:41)
[2019-12-21] MEDS: CLOTRIMAZOLE 1% CREAM 15 GM TUBE TP SCH ×2 (09:03→21:42)
[2019-12-21] MEDS: NICOTINE 7 MG/24 HOURS TOPICAL PATCH TD SCH (09:04)
[2019-12-21] MEDS: PRENATAL VITAMINS W/ FOLIC ACID TABLET (FP) PO SCH (09:04)
[2019-12-21] MEDS ORDERED: COLLOIDAL OATMEAL 1 BAR EACH TP PRN (09:32)
[2019-12-21] MEDS ORDERED: PT OWN MED DRAWER 7, Y5N ONE (16:25)
[2019-12-21] MEDS: THIAMINE HCL 100 MG TABLET (FP) PO SCH (21:39)
[2019-12-21] MEDS: MELATONIN 5 MG TABLETS PO SCH (21:39)
[2019-12-21] MEDS: IBUPROFEN 400 MG TABLET (FP) PO PRN (21:40)
[2019-12-22] MEDS ORDERED: METHADONE HCL 10 MG TABLET ONE (06:15)
[2019-12-22] MEDS ORDERED: METHADONE HCL 10 MG TABLET PO SCH (06:15)
[2019-12-22] MEDS ORDERED: METHADONE HCL 40 MG DISPERSABLE TABLET ONE (06:16)
[2019-12-22] MEDS: METHADONE 200 MG, METHADONE 10 MG PO SCH (06:17)
[2019-12-22] MEDS: NICOTINE POLACRILEX 4 MG GUM BUC PRN ×5 (06:18→21:12)
[2019-12-22] MEDS: CLOTRIMAZOLE 1% CREAM 15 GM TUBE TP SCH ×2 (09:23→21:11)
[2019-12-22] MEDS: NICOTINE 7 MG/24 HOURS TOPICAL PATCH TD SCH (09:24)
[2019-12-22] MEDS: PRENATAL VITAMINS W/ FOLIC ACID TABLET (FP) PO SCH (09:24)
[2019-12-22] MEDS: MELATONIN 5 MG TABLETS PO SCH (21:10)
[2019-12-22] MEDS: hydrOXYzine PAMOATE 25 MG CAPSULE (FP) PO PRN (21:11)
[2019-12-22] MEDS: THIAMINE HCL 100 MG TABLET (FP) PO SCH (21:11)
[2019-12-22] MEDS: IBUPROFEN 400 MG TABLET (FP) PO PRN (21:11)
[2019-12-23] MEDS ORDERED: METHADONE HCL 40 MG DISPERSABLE TABLET ONE (03:08)
[2019-12-23] MEDS ORDERED: METHADONE HCL 10 MG TABLET ONE (03:08)
[2019-12-23] MEDS: METHADONE 200 MG, METHADONE 10 MG PO SCH (06:28)
[2019-12-23] MEDS: NICOTINE POLACRILEX 4 MG GUM BUC PRN ×2 (06:29→18:45)
[2019-12-23] MEDS: CLOTRIMAZOLE 1% CREAM 15 GM TUBE TP SCH ×2 (10:20→21:22)
[2019-12-23] MEDS: PRENATAL VITAMINS W/ FOLIC ACID TABLET (FP) PO SCH (10:20)
[2019-12-23] MEDS: NICOTINE 7 MG/24 HOURS TOPICAL PATCH TD SCH (10:20)
[2019-12-23] MEDS: THIAMINE HCL 100 MG TABLET (FP) PO SCH (21:22)
[2019-12-23] MEDS: MELATONIN 5 MG TABLETS PO SCH (21:22)
[2019-12-24] MEDS ORDERED: METHADONE HCL 40 MG DISPERSABLE TABLET ONE (03:10)
[2019-12-24] MEDS ORDERED: METHADONE HCL 10 MG TABLET ONE (03:10)
[2019-12-24] MEDS: METHADONE 200 MG, METHADONE 10 MG PO SCH (06:31)
[2019-12-24] MEDS: NICOTINE POLACRILEX 4 MG GUM BUC PRN ×4 (06:32→17:24)
[2019-12-24] MEDS: CLOTRIMAZOLE 1% CREAM 15 GM TUBE TP SCH ×2 (09:20→21:05)
[2019-12-24] MEDS: PRENATAL VITAMINS W/ FOLIC ACID TABLET (FP) PO SCH (09:20)
[2019-12-24] MEDS: NICOTINE 7 MG/24 HOURS TOPICAL PATCH TD SCH (09:20)
[2019-12-24] MEDS: IBUPROFEN 400 MG TABLET (FP) PO PRN (21:03)
[2019-12-24] MEDS: THIAMINE HCL 100 MG TABLET (FP) PO SCH (21:04)
[2019-12-24] MEDS: MELATONIN 5 MG TABLETS PO SCH (21:05)
[2019-12-25] MEDS ORDERED: METHADONE HCL 10 MG TABLET ONE (05:12)
[2019-12-25] MEDS ORDERED: METHADONE HCL 40 MG DISPERSABLE TABLET ONE (05:13)
[2019-12-25] MEDS: METHADONE 200 MG, METHADONE 10 MG PO SCH (06:21)
[2019-12-25] MEDS: NICOTINE POLACRILEX 4 MG GUM BUC PRN ×5 (06:24→21:05)
[2019-12-25] MEDS: PRENATAL VITAMINS W/ FOLIC ACID TABLET (FP) PO SCH (09:58)
[2019-12-25] MEDS: CLOTRIMAZOLE 1% CREAM 15 GM TUBE TP SCH ×2 (09:58→21:40)
[2019-12-25] MEDS: NICOTINE 7 MG/24 HOURS TOPICAL PATCH TD SCH (09:58)
[2019-12-25] MEDS: IBUPROFEN 400 MG TABLET (FP) PO PRN (16:52)
[2019-12-25] MEDS: THIAMINE HCL 100 MG TABLET (FP) PO SCH (21:05)
[2019-12-25] MEDS: MELATONIN 5 MG TABLETS PO SCH (21:05)
[2019-12-26] MEDS ORDERED: METHADONE HCL 10 MG TABLET ONE (03:17)
[2019-12-26] MEDS ORDERED: METHADONE HCL 40 MG DISPERSABLE TABLET ONE (03:17)
[2019-12-26] MEDS: METHADONE 200 MG, METHADONE 10 MG PO SCH (06:02)
[2019-12-26] MEDS: NICOTINE POLACRILEX 4 MG GUM BUC PRN ×4 (06:03→14:55)
[2019-12-26] MEDS ORDERED: PT OWN MED DRAWER 7, Y5N ONE (09:17)
[2019-12-26] MEDS: NICOTINE 7 MG/24 HOURS TOPICAL PATCH TD SCH (09:51)
[2019-12-26] MEDS: CLOTRIMAZOLE 1% CREAM 15 GM TUBE TP SCH ×2 (09:51→22:15)
[2019-12-26] MEDS: PRENATAL VITAMINS W/ FOLIC ACID TABLET (FP) PO SCH (09:52)
[2019-12-26] MEDS: MELATONIN 5 MG TABLETS PO SCH (22:15)
[2019-12-26] MEDS: THIAMINE HCL 100 MG TABLET (FP) PO SCH (22:15)
[2019-12-27] MEDS ORDERED: METHADONE HCL 40 MG DISPERSABLE TABLET ONE (03:06)
[2019-12-27] MEDS ORDERED: METHADONE HCL 10 MG TABLET ONE (03:06)
[2019-12-27] MEDS: METHADONE 200 MG, METHADONE 10 MG PO SCH (06:14)
[2019-12-27] MEDS: NICOTINE POLACRILEX 4 MG GUM BUC PRN ×5 (06:15→21:07)
[2019-12-27] MEDS: PRENATAL VITAMINS W/ FOLIC ACID TABLET (FP) PO SCH (09:36)
[2019-12-27] MEDS: CLOTRIMAZOLE 1% CREAM 15 GM TUBE TP SCH ×2 (09:36→21:06)
[2019-12-27] MEDS: NICOTINE 7 MG/24 HOURS TOPICAL PATCH TD SCH (09:36)
[2019-12-27] MEDS ORDERED: PT OWN MED DRAWER 7, Y5N ONE (19:51)
[2019-12-27] MEDS: MELATONIN 5 MG TABLETS PO SCH (21:06)
[2019-12-27] MEDS: THIAMINE HCL 100 MG TABLET (FP) PO SCH (21:07)
[2019-12-27] MEDS: IBUPROFEN 400 MG TABLET (FP) PO PRN (21:08)
[2019-12-27] MEDS: hydrOXYzine PAMOATE 25 MG CAPSULE (FP) PO PRN (21:08)
[2019-12-28] MEDS ORDERED: METHADONE HCL 40 MG DISPERSABLE TABLET ONE (02:46)
[2019-12-28] MEDS ORDERED: METHADONE HCL 10 MG TABLET ONE (02:46)
[2019-12-28] MEDS: METHADONE 200 MG, METHADONE 10 MG PO SCH (06:06)
[2019-12-28] MEDS: NICOTINE POLACRILEX 4 MG GUM BUC PRN (06:07)
[2019-12-28 06:30] VITALS: BP 125/87; PULSE 65; TEMP 97.3
--- NOTE | 2019-12-28 08:48 | DS ---
[facility] Rehab Discharge Summary - [facility] Rehab Discharge Summary Admission Date: 12/09/19 Discharge Date: 12/28/19 - History Present History: Alcohol dependence, MMTP, Sedative dependence Additional Comments: Pt completed rehab and discharged today to follow up with [facility]. Reports he has PCP and does not want to give further information. Pt was very anxious lorie leave and declined to be spoken to by this typewriter tester. Pertinent Past History: Hep C ADHD CELIA - Discharge Physical Exam Vital Signs: Vital Signs Temperature 97.3 F L 12/28/19 06:00 Pulse Rate 65 12/28/19 06:00 Respiratory Rate 18 12/28/19 06:00 Blood Pressure 125/87 12/28/19 06:00 O2 Sat by Pulse Oximetry (%) 99 12/28/19 06:00 Alert o x 3 nad oob ambulating with steady gait Active ROM all extremities. - Treatment Discharge Condition: Discharge condition good Hospital Course: Referred to [facility] for follow up - Medication Discharge Medications: Ambulatory Orders Methadone [Dolophine -] 210 mg PO DAILY 12/05/19 - Medication-Assisted Treatment (MAT) Medication-Assisted Treatment (MAT): No - Discharge Instructions Diet, activity, other medical instructions: Diet:regular Activity: oob ad ginette Other medical instructions:follow up with pcp and CD aftercare recommendations as scheduled. - Diagnosis (1) Alcohol dependence Status: Acute Qualifiers: Substance use status: uncomplicated Qualified Code(s): F10.20 - Alcohol dependence, uncomplicated (2) Hepatitis C Status: Chronic Qualifiers: Viral hepatitis chronicity: chronic Hepatic coma status: without hepatic coma Qualified Code(s): B18.2 - Chronic viral hepatitis C (3) Methadone maintenance therapy patient Status: Chronic (4) Nicotine dependence Status: Chronic Qualifiers: Nicotine product type: cigarettes Substance use status: in withdrawal Qualified Code(s): F17.213 - Nicotine dependence, cigarettes, with withdrawal (5) Sedative, hypnotic or anxiolytic abuse, uncomplicated Status: Chronic (6) Methamphetamine abuse Status: Chronic - Follow-up Referral Minutes to complete discharge: 20 - AMA Did Patient Leave Against Medical Advice: No
== END 2019-12-28 08:52 | disposition home or self-care (01) | DRG 772 ==
LOC: YASAS 10:33 → Y3E 10:34
PROVIDERS: ADMIT Allergy & Immunology; ATTEND Allergy & Immunology
PROC: HZ42ZZZ Group Counseling for Substance Abuse Treatment, Cognitive-Behavioral (ICD-10-PCS; principal; 2019-12-09)
DX: F10.20 Alcohol dependence, uncomplicated (principal); F11.20 Opioid dependence, uncomplicated; F13.20 Sedative, hypnotic or anxiolytic dependence, uncomplicated; F15.10 Other stimulant abuse, uncomplicated; F17.213 Nicotine dependence, cigarettes, with withdrawal; B18.2 Chronic viral hepatitis C; Z59.0 Homelessness
CPT/HCPCS: 93005; 93010

== ENCOUNTER 2020-04-15 12:22 | Inpatient (IN) | payer OTHER ==
[2020-04-15 13:43] VITALS: BMI 25.7
[2020-04-15] MEDS ORDERED: BISMUTH SUBSALICYLATE 262 MG/15 ML BTL PO PRN (13:50)
[2020-04-15] MEDS ORDERED: MAGNESIUM CITRATE 300 ML BOTTLE PO PRN (13:50)
[2020-04-15] MEDS ORDERED: ACETAMINOPHEN 325 MG TABLET (FP) PO PRN (13:50)
[2020-04-15] MEDS ORDERED: MENTHOL/PHENOL 1 EACH UD MM PRN (13:50)
[2020-04-15] MEDS ORDERED: ONDANSETRON *ODT* 4 MG TABLET SL PRN (13:50)
[2020-04-15] MEDS ORDERED: IBUPROFEN 400 MG TABLET (FP) PO PRN (13:50)
[2020-04-15] MEDS ORDERED: MAGNESIUM HYDROX 2400MG/30ML ORAL SUSPENSION 30 ML CUP PO PRN (13:50)
[2020-04-15] MEDS ORDERED: diazePAM 5 MG TABLET PO ONE (13:50)
[2020-04-15] MEDS ORDERED: MAG HYDROX/AL HYDROX/SIMETH 30 ML UNIT-DOSE CUP PO PRN (13:50)
[2020-04-15] MEDS: hydrOXYzine PAMOATE 25 MG CAPSULE (FP) PO SCH ×2 (14:41→17:52)
[2020-04-15] MEDS: NICOTINE 7 MG/24 HOURS TOPICAL PATCH TD SCH (14:42)
[2020-04-15] MEDS: NICOTINE POLACRILEX 2 MG GUM BUC PRN ×2 (14:43→17:54)
[2020-04-15 17:25] LABS: HEMATOCRIT 39.9 % (35.4-49); HEMOGLOBIN 13.2 GM/dL (11.7-16.9); MCH 26.9 pg (25.7-33.7); MEAN CELL VOLUME 81.4 fl (80-96); MEAN PLT VOLUME 9.6 fl (7.5-11.1); PLATELET COUNT 222 K/MM3 (134-434); RDW 14.1 % (11.9-15.9); WHITE BLOOD COUNT 4.9 K/mm3 (4.0-10.0)
[2020-04-15 17:27] LABS: POTASSIUM 3.7 mmol/L (3.5-5.1)
[2020-04-15 17:29] LABS: ALBUMIN 3.7 g/dl (3.4-5.0); BLOOD UREA NITROGEN 16.3 mg/dL (7-18)
[2020-04-15 17:32] LABS: CREATININE 1.1 mg/dL (0.55-1.3)
[2020-04-15 17:34] LABS: BILIRUBIN,TOTAL 1.8 mg/dL (0.2-1); TOT PROT 6.6 g/dl (6.4-8.2)
[2020-04-15] MEDS: diazePAM 5 MG TABLET PO SCH (17:52)
[2020-04-16] MEDS: diazePAM 5 MG TABLET PO SCH ×5 (00:01→22:51)
[2020-04-16] MEDS: THIAMINE HCL 100 MG TABLET (FP) PO SCH ×2 (00:01→22:51)
[2020-04-16] MEDS: diazePAM 5 MG TABLET PO PRN ×4 (02:33→19:58)
[2020-04-16] MEDS: NICOTINE POLACRILEX 2 MG GUM BUC PRN ×6 (02:34→22:54)
[2020-04-16] MEDS ORDERED: METHADONE HCL 10 MG TABLET ONE (04:18)
[2020-04-16] MEDS ORDERED: METHADONE HCL 40 MG DISPERSABLE TABLET ONE (04:18)
[2020-04-16] MEDS ORDERED: METHADONE HCL 40 MG DISPERSABLE TABLET PO SCH (06:00)
[2020-04-16] MEDS: METHADONE 200 MG, METHADONE 20 MG PO SCH (06:09)
[2020-04-16] MEDS: hydrOXYzine PAMOATE 25 MG CAPSULE (FP) PO SCH ×6 (06:10→22:51)
[2020-04-16] MEDS: SULFAMETHOXAZOLE/TRIMETHOPRIM 800MG/160MG D.S. TABLET PO SCH ×3 (10:29→22:51)
[2020-04-16] MEDS: PRENATAL VITAMINS W/ FOLIC ACID TABLET (FP) PO SCH (10:29)
[2020-04-16] MEDS: NICOTINE 7 MG/24 HOURS TOPICAL PATCH TD SCH (10:29)
[2020-04-16] MEDS: MELATONIN 5 MG TABLETS PO SCH ×2 (22:51)
[2020-04-17] MEDS: diazePAM 5 MG TABLET PO PRN ×4 (03:12→17:23)
[2020-04-17] MEDS ORDERED: METHADONE HCL 10 MG TABLET ONE (04:27)
[2020-04-17] MEDS ORDERED: METHADONE HCL 40 MG DISPERSABLE TABLET ONE (04:28)
[2020-04-17] MEDS: METHADONE 200 MG, METHADONE 20 MG PO SCH (05:20)
[2020-04-17] MEDS: diazePAM 5 MG TABLET PO SCH ×3 (05:21→22:15)
[2020-04-17] MEDS: hydrOXYzine PAMOATE 25 MG CAPSULE (FP) PO SCH ×5 (05:21→22:15)
[2020-04-17] MEDS: NICOTINE POLACRILEX 2 MG GUM BUC PRN ×6 (05:23→21:49)
[2020-04-17] MEDS: PRENATAL VITAMINS W/ FOLIC ACID TABLET (FP) PO SCH (10:29)
[2020-04-17] MEDS: SULFAMETHOXAZOLE/TRIMETHOPRIM 800MG/160MG D.S. TABLET PO SCH ×2 (10:29→22:15)
[2020-04-17] MEDS: NICOTINE 7 MG/24 HOURS TOPICAL PATCH TD SCH (10:29)
[2020-04-17] MEDS: ACETAMINOPHEN 325 MG TABLET (FP) PO PRN ×2 (11:58→22:16)
[2020-04-17] MEDS: METHOCARBAMOL 500 MG TABLET PO PRN (11:58)
[2020-04-17] MEDS: THIAMINE HCL 100 MG TABLET (FP) PO SCH (22:15)
[2020-04-17] MEDS: MELATONIN 5 MG TABLETS PO SCH (22:15)
[2020-04-18] MEDS: diazePAM 5 MG TABLET PO PRN ×3 (02:29→13:38)
[2020-04-18] MEDS: NICOTINE POLACRILEX 2 MG GUM BUC PRN ×4 (04:25→17:15)
[2020-04-18] MEDS ORDERED: METHADONE HCL 10 MG TABLET ONE (04:28)
[2020-04-18] MEDS ORDERED: METHADONE HCL 40 MG DISPERSABLE TABLET ONE (04:29)
[2020-04-18] MEDS: diazePAM 5 MG TABLET PO SCH ×2 (05:41→17:13)
[2020-04-18] MEDS: METHADONE 200 MG, METHADONE 20 MG PO SCH (05:41)
[2020-04-18] MEDS: hydrOXYzine PAMOATE 25 MG CAPSULE (FP) PO SCH ×5 (05:41→22:14)
[2020-04-18] MEDS: PRENATAL VITAMINS W/ FOLIC ACID TABLET (FP) PO SCH (10:13)
[2020-04-18] MEDS: SULFAMETHOXAZOLE/TRIMETHOPRIM 800MG/160MG D.S. TABLET PO SCH ×2 (10:13→22:24)
[2020-04-18] MEDS: NICOTINE 7 MG/24 HOURS TOPICAL PATCH TD SCH (10:13)
[2020-04-18] MEDS: NICOTINE POLACRILEX 4 MG GUM BUC PRN (19:32)
[2020-04-18] MEDS: MELATONIN 5 MG TABLETS PO SCH (22:13)
[2020-04-18] MEDS: METHOCARBAMOL 500 MG TABLET PO PRN (22:14)
[2020-04-18] MEDS: THIAMINE HCL 100 MG TABLET (FP) PO SCH (22:14)
[2020-04-19] MEDS ORDERED: METHADONE HCL 10 MG TABLET ONE (05:36)
[2020-04-19] MEDS ORDERED: METHADONE HCL 40 MG DISPERSABLE TABLET ONE (05:37)
[2020-04-19] MEDS: hydrOXYzine PAMOATE 25 MG CAPSULE (FP) PO SCH ×2 (05:56→11:40)
[2020-04-19] MEDS: METHADONE 200 MG, METHADONE 20 MG PO SCH (05:56)
[2020-04-19] MEDS: NICOTINE POLACRILEX 4 MG GUM BUC PRN ×2 (05:59→09:35)
[2020-04-19] MEDS ORDERED: diazePAM 5 MG TABLET PO ONE (06:00)
[2020-04-19 09:18] VITALS: BP 118/73; PULSE 105; TEMP 97.5
[2020-04-19] MEDS: PRENATAL VITAMINS W/ FOLIC ACID TABLET (FP) PO SCH (09:37)
[2020-04-19] MEDS: SULFAMETHOXAZOLE/TRIMETHOPRIM 800MG/160MG D.S. TABLET PO SCH (09:37)
[2020-04-19] MEDS: NICOTINE 7 MG/24 HOURS TOPICAL PATCH TD SCH (09:38)
== END 2020-04-19 12:00 | disposition other institution (70) | DRG 773 ==
LOC: YASAS 12:22 → Y3N 14:11
PROVIDERS: ADMIT Allergy & Immunology; ATTEND Allergy & Immunology
PROC: HZ2ZZZZ Detoxification Services for Substance Abuse Treatment (ICD-10-PCS; principal; 2020-04-15)
DX: F13.230 Sedative, hypnotic or anxiolytic dependence with withdrawal, uncomplicated (principal); F14.20 Cocaine dependence, uncomplicated; F11.20 Opioid dependence, uncomplicated; F17.290 Nicotine dependence, other tobacco product, uncomplicated; F19.24 Other psychoactive substance dependence with psychoactive substance-induced mood disorder; F32.9 Major depressive disorder, single episode, unspecified; F90.9 Attention-deficit hyperactivity disorder, unspecified type; B18.2 Chronic viral hepatitis C; R10.9 Unspecified abdominal pain; R60.0 Localized edema; Z86.69 Personal history of other diseases of the nervous system and sense organs; Z56.0 Unemployment, unspecified; Z59.0 Homelessness; Z91.5 Personal history of self-harm; Z91.19 Patient's noncompliance with other medical treatment and regimen
CPT/HCPCS: 36415; 73610-TC-LT-FY; 73610-TC-RT-FY; 73630-TC-LT; 73630-TC-RT-FY; 80053; 85027; 86780; C9803; U0003

== ENCOUNTER 2020-04-15 20:26 | Emergency (ER) | payer OTHER ==
[2020-04-15 20:53] VITALS: TEMP 98.2; BMI 25.7
[2020-04-15] MEDS ORDERED: SODIUM CHLORIDE 0.9% 500 ML INFUS.BAG IV ONE ×2 (21:02→23:13)
[2020-04-15] MEDS ORDERED: ONDANSETRON 4 MG/2 ML VIAL IVPUSH ONE (21:03)
[2020-04-15] MEDS ORDERED: ACETAMINOPHEN 1000 MG/100 ML VIAL (NON FORMULARY) IVPB ONE (21:03)
[2020-04-15] MEDS ORDERED: MAG HYDROX/AL HYDROX/SIMETH 30 ML UNIT-DOSE CUP PO ONE (21:04)
[2020-04-15] MEDS ORDERED: ACETAMINOPHEN INJECTION 100 ML IVPB ONE (21:11)
[2020-04-15] MEDS ORDERED: MAG HYDROX/AL HYDROX/SIMETH 30 ML UNIT-DOSE CUP ONE (21:11)
[2020-04-15] MEDS ORDERED: ONDANSETRON 4 MG/2 ML VIAL ONE (21:12)
[2020-04-15 22:26] LABS: BASO % 0.1 % (0-2.0); EOS % 0.8 % (0-4.5); HEMATOCRIT 37.2 % (35.4-49); HEMOGLOBIN 12.3 GM/dL (11.7-16.9); LYMPH % 11.3 % (8-40); MCH 27.1 pg (25.7-33.7); MCHC 33.1 g/dl (32.0-35.9); MEAN CELL VOLUME 81.9 fl (80-96); MEAN PLT VOLUME 9.3 fl (7.5-11.1); MONO % 6.8 % (3.8-10.2); PLATELET COUNT 196 K/MM3 (134-434); RBC 4.55 M/mm3 (4.00-5.60); RDW 13.9 % (11.9-15.9); WHITE BLOOD COUNT 6.9 K/mm3 (4.0-10.0)
[2020-04-15 22:44] LABS: POTASSIUM 3.9 mmol/L (3.5-5.1)
[2020-04-15 22:46] LABS: CALCIUM 8.1 mg/dL (8.5-10.1)
[2020-04-15 22:47] LABS: ALBUMIN 2.8 g/dl (3.4-5.0); BLOOD UREA NITROGEN 18.1 mg/dL (7-18)
[2020-04-15 22:50] LABS: CREATININE 0.9 mg/dL (0.55-1.3)
[2020-04-15 22:51] LABS: BILIRUBIN,TOTAL 0.5 mg/dL (0.2-1); TOT PROT 5.5 g/dl (6.4-8.2)
[2020-04-16 01:25] VITALS: BP 110/72; PULSE 78
== END 2020-04-16 01:58 | disposition short-term general hospital (02) ==
LOC: JER 20:26
PROC: 3E0333Z Introduction of Anti-inflammatory into Peripheral Vein, Percutaneous Approach (ICD-10-PCS; principal; 2020-04-15)
PROC: 3E033GC Introduction of Other Therapeutic Substance into Peripheral Vein, Percutaneous Approach (ICD-10-PCS; 2020-04-15)
DX: R10.84 Generalized abdominal pain (principal)
CPT/HCPCS: 36415; 80053; 80074; 83605; 83690; 85025; 99285-25; J0131

== ENCOUNTER 2020-04-19 11:05 | Inpatient (IN) | payer OTHER ==
[2020-04-19] MEDS ORDERED: COLLOIDAL OATMEAL 1 BAR EACH TP PRN (11:21)
[2020-04-19] MEDS ORDERED: guaiFENesin 200 MG/10 ML 10 ML UNIT-DOSE CUPS PO PRN (11:41)
[2020-04-19] MEDS ORDERED: MENTHOL/PHENOL 1 EACH UD MM PRN (11:41)
[2020-04-19] MEDS ORDERED: MAG HYDROX/AL HYDROX/SIMETH 30 ML UNIT-DOSE CUP PO PRN (11:41)
[2020-04-19] MEDS ORDERED: P-EPHED 60MG/TRIPROLIDI 2.5MG TABLET PO PRN (11:41)
[2020-04-19] MEDS ORDERED: MAGNESIUM HYDROX 2400MG/30ML ORAL SUSPENSION 30 ML CUP PO PRN (11:41)
[2020-04-19] MEDS ORDERED: NICOTINE POLACRILEX 2 MG GUM BUC PRN (11:41)
[2020-04-19] MEDS ORDERED: MAGNESIUM CITRATE 300 ML BOTTLE PO PRN (11:41)
[2020-04-19] MEDS ORDERED: LOPERAMIDE HCL 2 MG CAPSULE PO PRN (11:41)
[2020-04-19] MEDS: SELENIUM SULFIDE 2.5% LOTION 4 OZ. TP SCH (15:50)
[2020-04-19] MEDS: THIAMINE HCL 100 MG TABLET (FP) PO SCH (21:35)
[2020-04-19] MEDS: MELATONIN 5 MG TABLETS PO SCH (21:35)
[2020-04-19] MEDS: IBUPROFEN 400 MG TABLET (FP) PO PRN (21:37)
[2020-04-19] MEDS: HYDROCORTISONE 1% TOPICAL CREAM 30 GM TUBE TP SCH (21:38)
[2020-04-19] MEDS: hydrOXYzine PAMOATE 25 MG CAPSULE (FP) PO PRN (21:38)
[2020-04-20] MEDS ORDERED: METHADONE HCL 10 MG TABLET ONE (05:55)
[2020-04-20] MEDS ORDERED: METHADONE HCL 40 MG DISPERSABLE TABLET ONE (05:56)
[2020-04-20] MEDS: METHADONE 200 MG, METHADONE 20 MG PO SCH (06:00)
[2020-04-20] MEDS ORDERED: METHADONE HCL 10 MG TABLET PO SCH ×2 (06:00)
[2020-04-20] MEDS: NICOTINE POLACRILEX 4 MG GUM BUC PRN ×6 (06:02→20:16)
[2020-04-20] MEDS ORDERED: MASKS NR ONE (06:42)
[2020-04-20] MEDS: PRENATAL VITAMINS W/ FOLIC ACID TABLET (FP) PO SCH (09:34)
[2020-04-20] MEDS: SELENIUM SULFIDE 2.5% LOTION 4 OZ. TP SCH (09:34)
[2020-04-20] MEDS: IBUPROFEN 400 MG TABLET (FP) PO PRN (09:36)
[2020-04-20] MEDS: HYDROCORTISONE 1% TOPICAL CREAM 30 GM TUBE TP SCH ×2 (09:36→21:58)
[2020-04-20] MEDS: hydrOXYzine PAMOATE 25 MG CAPSULE (FP) PO PRN ×2 (13:17→21:57)
[2020-04-20] MEDS: DOCUSATE SODIUM 100 MG CAPSULE (FP) PO SCH ×2 (13:17→21:56)
[2020-04-20] MEDS: ACETAMINOPHEN 325 MG TABLET (FP) PO PRN (21:56)
[2020-04-20] MEDS: MELATONIN 5 MG TABLETS PO SCH (21:58)
[2020-04-20] MEDS: THIAMINE HCL 100 MG TABLET (FP) PO SCH (21:58)
[2020-04-21] MEDS: ACETAMINOPHEN 325 MG TABLET (FP) PO PRN ×2 (02:44→17:33)
[2020-04-21] MEDS ORDERED: METHADONE HCL 10 MG TABLET ONE (03:11)
[2020-04-21] MEDS ORDERED: METHADONE HCL 40 MG DISPERSABLE TABLET ONE (03:11)
[2020-04-21] MEDS: DOCUSATE SODIUM 100 MG CAPSULE (FP) PO SCH ×2 (06:02→13:49)
[2020-04-21] MEDS: METHADONE 200 MG, METHADONE 20 MG PO SCH (06:02)
[2020-04-21] MEDS: NICOTINE POLACRILEX 4 MG GUM BUC PRN ×6 (06:05→22:31)
[2020-04-21] MEDS: SELENIUM SULFIDE 2.5% LOTION 4 OZ. TP SCH (09:44)
[2020-04-21] MEDS: PRENATAL VITAMINS W/ FOLIC ACID TABLET (FP) PO SCH (09:44)
[2020-04-21] MEDS: HYDROCORTISONE 1% TOPICAL CREAM 30 GM TUBE TP SCH (09:45)
[2020-04-21] MEDS: IBUPROFEN 400 MG TABLET (FP) PO PRN (09:47)
[2020-04-21] MEDS: hydrOXYzine PAMOATE 25 MG CAPSULE (FP) PO PRN (17:34)
[2020-04-21 20:06] VITALS: TEMP 97.7
[2020-04-21] MEDS ORDERED: CYCLOBENZAPRINE HCL 10 MG TABLET (FP) PO ONE (21:11)
[2020-04-21] MEDS ORDERED: MIRTAZAPINE 15 MG TABLET (FP) PO SCH (22:00)
[2020-04-21 23:05] VITALS: BP 132/78; PULSE 70
[2020-04-22] MEDS: DOCUSATE SODIUM 100 MG CAPSULE (FP) PO SCH ×2 (00:43→07:30)
[2020-04-22] MEDS: HYDROCORTISONE 1% TOPICAL CREAM 30 GM TUBE TP SCH (00:43)
[2020-04-22] MEDS: MELATONIN 5 MG TABLETS PO SCH (00:43)
[2020-04-22] MEDS: THIAMINE HCL 100 MG TABLET (FP) PO SCH (00:44)
[2020-04-22] MEDS: METHADONE 200 MG, METHADONE 20 MG PO SCH (07:30)
[2020-04-22] MEDS ORDERED: CITALOPRAM HYDROBROMIDE 20 MG TABLET PO SCH (10:00)
== END 2020-04-21 11:55 | disposition short-term general hospital (02) | DRG 772 ==
LOC: YASAS 11:05 → Y3W 11:08 → Y5N 12:31
PROVIDERS: ADMIT Allergy & Immunology; ATTEND Allergy & Immunology
PROC: HZ42ZZZ Group Counseling for Substance Abuse Treatment, Cognitive-Behavioral (ICD-10-PCS; principal; 2020-04-19)
DX: F13.20 Sedative, hypnotic or anxiolytic dependence, uncomplicated (principal); F11.20 Opioid dependence, uncomplicated; F14.20 Cocaine dependence, uncomplicated; F19.282 Other psychoactive substance dependence with psychoactive substance-induced sleep disorder; F19.280 Other psychoactive substance dependence with psychoactive substance-induced anxiety disorder; F19.24 Other psychoactive substance dependence with psychoactive substance-induced mood disorder; F90.9 Attention-deficit hyperactivity disorder, unspecified type; F31.9 Bipolar disorder, unspecified; R51.9 Headache, unspecified; R60.0 Localized edema; L98.8 Other specified disorders of the skin and subcutaneous tissue; Z87.891 Personal history of nicotine dependence; Z91.19 Patient's noncompliance with other medical treatment and regimen; Z86.69 Personal history of other diseases of the nervous system and sense organs; Z86.19 Personal history of other infectious and parasitic diseases; Z56.0 Unemployment, unspecified; Z59.0 Homelessness
CPT/HCPCS: 82962

== ENCOUNTER 2020-04-21 22:54 | Inpatient (IN) | payer OTHER ==
[2020-04-21] MEDS ORDERED: chlordiazePOXIDE HCL 25 MG CAPSULE PO ONE (23:56)
[2020-04-22] MEDS ORDERED: chlordiazePOXIDE HCL 25 MG CAPSULE ONE ×2 (00:07→12:37)
[2020-04-22 00:40] LABS: HEMATOCRIT 34.7 % (35.4-49); HEMOGLOBIN 11.6 GM/dL (11.7-16.9); MCH 27.3 pg (25.7-33.7); MCHC 33.3 g/dl (32.0-35.9); MEAN CELL VOLUME 81.9 fl (80-96); MEAN PLT VOLUME 9.4 fl (7.5-11.1); PLATELET COUNT 208 K/MM3 (134-434); RBC 4.23 M/mm3 (4.00-5.60); RDW 14.2 % (11.9-15.9); WHITE BLOOD COUNT 5.5 K/mm3 (4.0-10.0)
[2020-04-22 00:58] LABS: CHLORIDE 101 mmol/L (98-107); POTASSIUM 4.4 mmol/L (3.5-5.1); SODIUM 139 mmol/L (136-145)
[2020-04-22 01:00] LABS: ALBUMIN 3.3 g/dl (3.4-5.0); ANION GAP 6 MMOL/L (8-16); BLOOD UREA NITROGEN 30.6 mg/dL (7-18); CALCIUM 9.1 mg/dL (8.5-10.1); CO2 31 mmol/L (21-32)
[2020-04-22 01:01] LABS: GLUCOSE,RANDOM 90 mg/dL (74-106)
[2020-04-22 01:03] LABS: SGOT/AST 27 U/L (15-37); SGPT/ALT 42 U/L (13-61)
[2020-04-22 01:05] LABS: BILIRUBIN,TOTAL 0.2 mg/dL (0.2-1); TOT PROT 6.2 g/dl (6.4-8.2)
[2020-04-22 01:06] LABS: ALK PHOS 80 U/L (45-117)
[2020-04-22 01:08] LABS: N-TERMINAL BNP 248.7 pg/ml (5-125)
[2020-04-22] MEDS ORDERED: ACETAMINOPHEN 1000 MG/100 ML VIAL (NON FORMULARY) IVPB ONE ×3 (03:09→22:15)
[2020-04-22 03:22] LABS: PH,URINE 7.5 (5.0-8.0); URINE APPEARANCE CLEAR; URINE BILIRUBIN NEGATIVE (NEGATIVE); URINE COLOR YELLOW; URINE GLUCOSE (UA) NEGATIVE (NEGATIVE); URINE KETONE NEGATIVE (NEGATIVE); URINE LEUK ESTERASE NEGATIVE (NEGATIVE); URINE NITRITE NEGATIVE (NEGATIVE); URINE PROTEIN NEGATIVE (NEGATIVE); URINE UROBILINOGEN 0.2 mg/dL (0.2-1.0)
[2020-04-22 03:40] LABS: COCAINE, UR NEGATIVE ng/ml (CUTOFF=300); OPIATES, URI NEGATIVE ng/ml (CUTOFF=300)
[2020-04-22 03:41] LABS: PHENCYCLIDINE,URINE NEGATIVE ng/ml (CUTOFF=25); URINE BARBITURATES NEGATIVE ng/ml (CUTOFF=200)
[2020-04-22 03:44] LABS: URINE AMPHETAMINES NEGATIVE ng/ml (CUTOFF=500)
[2020-04-22 03:47] LABS: METHADONE, UR POSITIVE ng/ml (CUTOFF=300); URINE BENZODIAZEPINES POSITIVE ng/ml (CUTOFF=200)
[2020-04-22] MEDS ORDERED: ACETAMINOPHEN INJECTION 100 ML IVPB ONE (03:47)
[2020-04-22] MEDS ORDERED: chlordiazePOXIDE HCL 25 MG CAPSULE PO PRN ×2 (05:59→15:20)
[2020-04-22] MEDS ORDERED: METHADONE HCL 10 MG TABLET PO SCH (06:15)
[2020-04-22] MEDS: METHADONE 200 MG, METHADONE 20 MG PO SCH (09:00)
[2020-04-22] MEDS ORDERED: METHADONE HCL 10 MG TABLET ONE (09:02)
[2020-04-22] MEDS ORDERED: METHADONE HCL 40 MG DISPERSABLE TABLET ONE (09:02)
[2020-04-22] MEDS ORDERED: ENOXAPARIN NA (PORCINE) 40 MG/0.4 ML DISP.SYRIN SQ SCH (10:00)
[2020-04-22] MEDS ORDERED: chlordiazePOXIDE HCL 25 MG CAPSULE PO SCH ×2 (11:00→17:00)
[2020-04-22] MEDS ORDERED: ENOXAPARIN NA (PORCINE) 40 MG/0.4 ML DISP.SYRIN SQ ONE (12:37)
[2020-04-22 16:34] VITALS: BMI 28.6
[2020-04-22] MEDS: NICOTINE POLACRILEX 4 MG GUM BUC PRN ×2 (20:17→23:10)
[2020-04-22] MEDS: chlordiazePOXIDE HCL 10 MG CAPSULE PO SCH (23:09)
[2020-04-23] MEDS: NICOTINE POLACRILEX 4 MG GUM BUC PRN ×5 (03:44→21:29)
[2020-04-23] MEDS ORDERED: METHADONE HCL 10 MG TABLET ONE (05:12)
[2020-04-23] MEDS ORDERED: METHADONE HCL 40 MG DISPERSABLE TABLET ONE (05:13)
[2020-04-23] MEDS: METHADONE 200 MG, METHADONE 20 MG PO SCH (05:15)
[2020-04-23 09:25] LABS: BASO % 0.6 % (0-2.0); EOS % 3.6 % (0-4.5); HEMATOCRIT 36.1 % (35.4-49); HEMOGLOBIN 12.2 GM/dL (11.7-16.9); LYMPH % 43.9 % (8-40); MCH 27.4 pg (25.7-33.7); MCHC 33.8 g/dl (32.0-35.9); MEAN CELL VOLUME 81.2 fl (80-96); MEAN PLT VOLUME 9.5 fl (7.5-11.1); MONO % 11.5 % (3.8-10.2); NEUT % 40.4 % (42.8-82.8); PLATELET COUNT 228 K/MM3 (134-434); RBC 4.44 M/mm3 (4.00-5.60); RDW 14.3 % (11.9-15.9); WHITE BLOOD COUNT 5.3 K/mm3 (4.0-10.0)
[2020-04-23 09:39] LABS: POTASSIUM 4.2 mmol/L (3.5-5.1)
[2020-04-23] MEDS ORDERED: PT OWN MED DRAWER 7, Y5N ONE ×2 (09:42→21:27)
[2020-04-23 10:10] LABS: CALCIUM 9.5 mg/dL (8.5-10.1)
[2020-04-23 10:11] LABS: ALBUMIN 3.7 g/dl (3.4-5.0); BLOOD UREA NITROGEN 22.5 mg/dL (7-18); MAGNESIUM 2.3 mg/dL (1.8-2.4)
[2020-04-23 10:14] LABS: PHOSPHOROUS 5.8 mg/dL (2.5-4.9)
[2020-04-23 10:15] LABS: BILIRUBIN,TOTAL 0.5 mg/dL (0.2-1)
[2020-04-23 10:16] LABS: TOT PROT 6.7 g/dl (6.4-8.2)
[2020-04-23] MEDS: ENOXAPARIN NA (PORCINE) 40 MG/0.4 ML DISP.SYRIN SQ SCH ×2 (10:34→10:40)
[2020-04-23] MEDS: chlordiazePOXIDE HCL 10 MG CAPSULE PO SCH ×2 (10:35→22:15)
[2020-04-23 11:35] LABS: ANISOCYTOSIS 0; HELMET CELLS 0; HOWELL-JOLLY BODIES 0; MACROCYTOSIS 0; OVALOCYTE 0; PLATELET ESTIMATE NORMAL; ROULEAU 0; SICKELED CELLS 0; TARGET CELLS 0; TEAR DROP CELLS 0; TOXIC GRANULATION 0
[2020-04-23] MEDS ORDERED: ACETAMINOPHEN 325 MG TABLET (FP) PO ONE (16:47)
[2020-04-24] MEDS ORDERED: MELATONIN 5 MG TABLETS PO ONE ×2 (00:28→20:46)
[2020-04-24] MEDS ORDERED: PT OWN MED DRAWER 7, Y5N ONE ×5 (01:28→17:24)
[2020-04-24] MEDS: NICOTINE POLACRILEX 4 MG GUM BUC PRN ×6 (01:34→23:25)
[2020-04-24] MEDS ORDERED: chlordiazePOXIDE HCL 25 MG CAPSULE PO SCH ×2 (05:00)
[2020-04-24] MEDS ORDERED: METHADONE HCL 10 MG TABLET ONE (05:54)
[2020-04-24] MEDS ORDERED: METHADONE HCL 40 MG DISPERSABLE TABLET ONE (05:54)
[2020-04-24] MEDS: METHADONE 200 MG, METHADONE 20 MG PO SCH (05:59)
[2020-04-24] MEDS: ENOXAPARIN NA (PORCINE) 40 MG/0.4 ML DISP.SYRIN SQ SCH (09:35)
[2020-04-24 11:17] LABS: BASO % 0.6 % (0-2.0); EOS % 3.6 % (0-4.5); HEMATOCRIT 34.8 % (35.4-49); HEMOGLOBIN 11.5 GM/dL (11.7-16.9); LYMPH % 38.1 % (8-40); MCH 26.5 pg (25.7-33.7); MEAN CELL VOLUME 80.3 fl (80-96); MONO % 14.8 % (3.8-10.2); NEUT % 42.9 % (42.8-82.8); PLATELET COUNT 227 K/MM3 (134-434); RBC 4.34 M/mm3 (4.00-5.60); RDW 14.4 % (11.9-15.9); WHITE BLOOD COUNT 6.6 K/mm3 (4.0-10.0)
[2020-04-24 11:45] LABS: POTASSIUM 4.2 mmol/L (3.5-5.1)
[2020-04-24 11:47] LABS: ALBUMIN 3.2 g/dl (3.4-5.0); BLOOD UREA NITROGEN 23.3 mg/dL (7-18); CALCIUM 9.1 mg/dL (8.5-10.1); MAGNESIUM 2.3 mg/dL (1.8-2.4)
[2020-04-24 11:50] LABS: CREATININE 0.9 mg/dL (0.55-1.3)
[2020-04-24 11:51] LABS: PHOSPHOROUS 5.6 mg/dL (2.5-4.9)
[2020-04-24 11:52] LABS: BILIRUBIN,TOTAL 0.5 mg/dL (0.2-1); TOT PROT 6.2 g/dl (6.4-8.2)
[2020-04-24 14:20] LABS: ANISOCYTOSIS 0; MACROCYTOSIS 0; PLATELET ESTIMATE NORMAL
[2020-04-24] MEDS ORDERED: chlordiazePOXIDE HCL 10 MG CAPSULE PO ONE (20:46)
[2020-04-25] MEDS ORDERED: chlordiazePOXIDE HCL 10 MG CAPSULE PO PRN ×2
[2020-04-25] MEDS ORDERED: chlordiazePOXIDE HCL 10 MG CAPSULE PO SCH ×2 (05:00)
[2020-04-25] MEDS ORDERED: METHADONE HCL 10 MG TABLET ONE (05:45)
[2020-04-25] MEDS ORDERED: METHADONE HCL 40 MG DISPERSABLE TABLET ONE (05:46)
[2020-04-25] MEDS: METHADONE 200 MG, METHADONE 20 MG PO SCH (05:50)
[2020-04-25] MEDS: NICOTINE POLACRILEX 4 MG GUM BUC PRN ×3 (05:51→14:42)
[2020-04-25 05:58] VITALS: BP 115/61; PULSE 75; TEMP 97.5
[2020-04-25 08:35] LABS: BASO % 1.1 % (0-2.0); EOS % 3.2 % (0-4.5); HEMATOCRIT 37.4 % (35.4-49); HEMOGLOBIN 12.6 GM/dL (11.7-16.9); LYMPH % 42.8 % (8-40); MCH 27.4 pg (25.7-33.7); MCHC 33.7 g/dl (32.0-35.9); MEAN CELL VOLUME 81.4 fl (80-96); MEAN PLT VOLUME 9.4 fl (7.5-11.1); MONO % 12.4 % (3.8-10.2); NEUT % 40.5 % (42.8-82.8); PLATELET COUNT 239 K/MM3 (134-434); RDW 14.3 % (11.9-15.9); WHITE BLOOD COUNT 5.6 K/mm3 (4.0-10.0)
[2020-04-25 08:51] LABS: POTASSIUM 4.2 mmol/L (3.5-5.1)
[2020-04-25 08:54] LABS: BLOOD UREA NITROGEN 20.8 mg/dL (7-18); CALCIUM 9.5 mg/dL (8.5-10.1)
[2020-04-25 08:56] LABS: ALBUMIN 3.7 g/dl (3.4-5.0); MAGNESIUM 2.1 mg/dL (1.8-2.4)
[2020-04-25 08:59] LABS: CREATININE 0.9 mg/dL (0.55-1.3)
[2020-04-25 09:00] LABS: BILIRUBIN,TOTAL 0.5 mg/dL (0.2-1); TOT PROT 6.9 g/dl (6.4-8.2)
[2020-04-25] MEDS: ENOXAPARIN NA (PORCINE) 40 MG/0.4 ML DISP.SYRIN SQ SCH (11:06)
[2020-04-25] MEDS ORDERED: ALPRAZolam 1 MG TABLET PO PRN (12:00)
[2020-04-25] MEDS ORDERED: chlordiazePOXIDE HCL 25 MG CAPSULE PO ONE (12:06)
[2020-04-26] MEDS ORDERED: chlordiazePOXIDE HCL 10 MG CAPSULE PO SCH ×2 (05:00)
[2020-04-26 18:08] LABS: HEP B CORE AB, TOT Negative (Negative)
[2020-04-27] MEDS ORDERED: chlordiazePOXIDE HCL 10 MG CAPSULE PO ONE ×2 (05:00)
== END 2020-04-25 14:59 | disposition other institution (70) | DRG 351 ==
LOC: JER 22:54 → JERBED 04-22 01:10 → J6S 04-22 14:10
PROVIDERS: ADMIT Internal Medicine; ATTEND Internal Medicine
PROC: HZ2ZZZZ Detoxification Services for Substance Abuse Treatment (ICD-10-PCS; principal; 2020-04-22)
PROC: HZ91ZZZ Pharmacotherapy for Substance Abuse Treatment, Methadone Maintenance (ICD-10-PCS; 2020-04-22)
DX: M79.89 Other specified soft tissue disorders (principal); F19.10 Other psychoactive substance abuse, uncomplicated; F41.9 Anxiety disorder, unspecified; F11.20 Opioid dependence, uncomplicated; F13.230 Sedative, hypnotic or anxiolytic dependence with withdrawal, uncomplicated; F14.10 Cocaine abuse, uncomplicated; F10.239 Alcohol dependence with withdrawal, unspecified; B19.10 Unspecified viral hepatitis B without hepatic coma; B19.20 Unspecified viral hepatitis C without hepatic coma; D64.9 Anemia, unspecified; G43.909 Migraine, unspecified, not intractable, without status migrainosus; E88.09 Other disorders of plasma-protein metabolism, not elsewhere classified
CPT/HCPCS: 36415; 70450-TC; 71046-TC-FY; 80048; 80053; 80074; 80307; 81003; 82550; 82553; 82565; 83735; 83880; 84100; 84156; 84443; 84484; 85025; 85027; 86704; 86705; 86706; 86707; 87040; 87086; 87350; 93005; 93010; 93306-TC; 93970-TC; 97116-GP; 97161-GP; 99285-25; C9803; J0131; U0003

== ENCOUNTER 2020-04-25 15:04 | Inpatient (IN) | payer OTHER ==
[2020-04-25 17:27] VITALS: BMI 27.1
[2020-04-25] MEDS ORDERED: LOPERAMIDE HCL 2 MG CAPSULE PO PRN (17:38)
[2020-04-25] MEDS ORDERED: MAG HYDROX/AL HYDROX/SIMETH 30 ML UNIT-DOSE CUP PO PRN (17:38)
[2020-04-25] MEDS ORDERED: MAGNESIUM CITRATE 300 ML BOTTLE PO PRN (17:38)
[2020-04-25] MEDS ORDERED: P-EPHED 60MG/TRIPROLIDI 2.5MG TABLET PO PRN (17:38)
[2020-04-25] MEDS ORDERED: MAGNESIUM HYDROX 2400MG/30ML ORAL SUSPENSION 30 ML CUP PO PRN (17:38)
[2020-04-25] MEDS ORDERED: guaiFENesin 200 MG/10 ML 10 ML UNIT-DOSE CUPS PO PRN (17:38)
[2020-04-25] MEDS ORDERED: IBUPROFEN 400 MG TABLET (FP) PO PRN (17:38)
[2020-04-25] MEDS ORDERED: ACETAMINOPHEN 325 MG TABLET (FP) PO PRN (17:38)
[2020-04-25] MEDS ORDERED: COLLOIDAL OATMEAL 1 BAR EACH TP PRN (17:46)
[2020-04-25] MEDS: NICOTINE POLACRILEX 4 MG GUM BC PRN (19:42)
[2020-04-25] MEDS: hydrOXYzine PAMOATE 25 MG CAPSULE (FP) PO PRN (21:42)
[2020-04-25] MEDS: MELATONIN 5 MG TABLETS PO SCH (21:42)
[2020-04-25] MEDS: THIAMINE HCL 100 MG TABLET (FP) PO SCH (21:42)
[2020-04-25] MEDS ORDERED: MIRTAZAPINE 15 MG TABLET (FP) PO ONE (23:00)
[2020-04-26] MEDS ORDERED: methaDONE HCL 40 MG DISPERSABLE TABLET PO SCH ×2 (06:00→10:00)
[2020-04-26] MEDS ORDERED: methaDONE HCL 10 MG TABLET ONE (06:05)
[2020-04-26] MEDS ORDERED: methaDONE HCL 40 MG DISPERSABLE TABLET ONE (06:06)
[2020-04-26] MEDS: NICOTINE POLACRILEX 4 MG GUM BC PRN ×6 (06:28→21:21)
[2020-04-26] MEDS: PRENATAL VITAMINS W/ FOLIC ACID TABLET (FP) PO SCH (09:56)
[2020-04-26] MEDS: CITALOPRAM HYDROBROMIDE 20 MG TABLET PO SCH (12:12)
[2020-04-26] MEDS ORDERED: MASKS NR ONE (16:48)
[2020-04-26] MEDS: MELATONIN 5 MG TABLETS PO SCH (21:20)
[2020-04-26] MEDS: hydrOXYzine PAMOATE 25 MG CAPSULE (FP) PO PRN (21:20)
[2020-04-26] MEDS: MIRTAZAPINE 15 MG TABLET (FP) PO SCH (21:20)
[2020-04-26] MEDS: THIAMINE HCL 100 MG TABLET (FP) PO SCH (21:20)
[2020-04-27] MEDS ORDERED: methaDONE HCL 10 MG TABLET ONE (03:40)
[2020-04-27] MEDS ORDERED: methaDONE HCL 40 MG DISPERSABLE TABLET ONE (03:40)
[2020-04-27] MEDS: NICOTINE POLACRILEX 4 MG GUM BC PRN ×5 (06:05→21:45)
[2020-04-27] MEDS: CITALOPRAM HYDROBROMIDE 20 MG TABLET PO SCH (09:54)
[2020-04-27] MEDS: PRENATAL VITAMINS W/ FOLIC ACID TABLET (FP) PO SCH (09:54)
[2020-04-27] MEDS: MELATONIN 5 MG TABLETS PO SCH (21:44)
[2020-04-27] MEDS: THIAMINE HCL 100 MG TABLET (FP) PO SCH (21:44)
[2020-04-27] MEDS: hydrOXYzine PAMOATE 25 MG CAPSULE (FP) PO PRN (21:44)
[2020-04-27] MEDS: MIRTAZAPINE 15 MG TABLET (FP) PO SCH (22:02)
[2020-04-28] MEDS ORDERED: methaDONE HCL 40 MG DISPERSABLE TABLET ONE (03:25)
[2020-04-28] MEDS ORDERED: methaDONE HCL 10 MG TABLET ONE (03:25)
[2020-04-28] MEDS: NICOTINE POLACRILEX 4 MG GUM BC PRN ×3 (06:32→17:47)
[2020-04-28] MEDS: CITALOPRAM HYDROBROMIDE 20 MG TABLET PO SCH (09:36)
[2020-04-28] MEDS: PRENATAL VITAMINS W/ FOLIC ACID TABLET (FP) PO SCH (09:36)
[2020-04-28] MEDS: hydrOXYzine PAMOATE 25 MG CAPSULE (FP) PO PRN (21:32)
[2020-04-28] MEDS: THIAMINE HCL 100 MG TABLET (FP) PO SCH (21:32)
[2020-04-28] MEDS: MELATONIN 5 MG TABLETS PO SCH (21:32)
[2020-04-28] MEDS: MIRTAZAPINE 15 MG TABLET (FP) PO SCH (21:33)
[2020-04-29] MEDS ORDERED: methaDONE HCL 10 MG TABLET ONE (03:17)
[2020-04-29] MEDS ORDERED: methaDONE HCL 40 MG DISPERSABLE TABLET ONE (03:17)
[2020-04-29] MEDS: NICOTINE POLACRILEX 4 MG GUM BC PRN ×3 (06:11→21:01)
[2020-04-29] MEDS: PRENATAL VITAMINS W/ FOLIC ACID TABLET (FP) PO SCH (09:40)
[2020-04-29] MEDS: CITALOPRAM HYDROBROMIDE 20 MG TABLET PO SCH (09:40)
[2020-04-29] MEDS: MELATONIN 5 MG TABLETS PO SCH (21:00)
[2020-04-29] MEDS: hydrOXYzine PAMOATE 25 MG CAPSULE (FP) PO PRN (21:00)
[2020-04-29] MEDS: MIRTAZAPINE 15 MG TABLET (FP) PO SCH (21:00)
[2020-04-29] MEDS: THIAMINE HCL 100 MG TABLET (FP) PO SCH (21:00)
[2020-04-30] MEDS ORDERED: methaDONE HCL 40 MG DISPERSABLE TABLET ONE (04:06)
[2020-04-30] MEDS ORDERED: methaDONE HCL 10 MG TABLET ONE (04:06)
[2020-04-30] MEDS: NICOTINE POLACRILEX 4 MG GUM BC PRN ×4 (06:08→21:54)
[2020-04-30] MEDS: CITALOPRAM HYDROBROMIDE 20 MG TABLET PO SCH (09:21)
[2020-04-30] MEDS: PRENATAL VITAMINS W/ FOLIC ACID TABLET (FP) PO SCH (09:21)
[2020-04-30] MEDS: THIAMINE HCL 100 MG TABLET (FP) PO SCH ×2 (21:53→22:01)
[2020-04-30] MEDS: hydrOXYzine PAMOATE 25 MG CAPSULE (FP) PO PRN (21:53)
[2020-04-30] MEDS: MELATONIN 5 MG TABLETS PO SCH (21:53)
[2020-04-30] MEDS: MIRTAZAPINE 15 MG TABLET (FP) PO SCH (22:01)
[2020-05-01] MEDS ORDERED: methaDONE HCL 40 MG DISPERSABLE TABLET ONE (04:03)
[2020-05-01] MEDS ORDERED: methaDONE HCL 10 MG TABLET ONE (04:03)
[2020-05-01 07:02] VITALS: BP 138/64; PULSE 70; TEMP 97.8
[2020-05-01] MEDS: PRENATAL VITAMINS W/ FOLIC ACID TABLET (FP) PO SCH (10:26)
[2020-05-01] MEDS: CITALOPRAM HYDROBROMIDE 20 MG TABLET PO SCH (10:26)
[2020-05-01] MEDS: NICOTINE POLACRILEX 4 MG GUM BC PRN (10:26)
== END 2020-05-01 11:00 | disposition home or self-care (01) | DRG 772 ==
LOC: YASAS 15:04 → Y5N 18:51
PROVIDERS: ADMIT Allergy & Immunology; ATTEND Allergy & Immunology
PROC: HZ42ZZZ Group Counseling for Substance Abuse Treatment, Cognitive-Behavioral (ICD-10-PCS; principal; 2020-04-25)
DX: F10.230 Alcohol dependence with withdrawal, uncomplicated (principal); F14.20 Cocaine dependence, uncomplicated; F90.9 Attention-deficit hyperactivity disorder, unspecified type; F19.280 Other psychoactive substance dependence with psychoactive substance-induced anxiety disorder; F19.282 Other psychoactive substance dependence with psychoactive substance-induced sleep disorder; U07.1 COVID-19; Z91.14 Patient's other noncompliance with medication regimen; Z86.69 Personal history of other diseases of the nervous system and sense organs; Z59.0 Homelessness
CPT/HCPCS: C9803; U0003

== ENCOUNTER 2020-08-08 13:49 | Inpatient (IN) | payer OTHER ==
[2020-08-08 19:37] VITALS: BMI 24.0
[2020-08-08] MEDS ORDERED: ONDANSETRON *ODT* 4 MG TABLET SL PRN (19:47)
[2020-08-08] MEDS ORDERED: ACETAMINOPHEN 325 MG TABLET (FP) PO PRN ×2 (19:47)
[2020-08-08] MEDS ORDERED: MAG HYDROX/AL HYDROX/SIMETH 30 ML UNIT-DOSE CUP PO PRN (19:47)
[2020-08-08] MEDS ORDERED: MAGNESIUM CITRATE 300 ML BOTTLE PO PRN (19:47)
[2020-08-08] MEDS ORDERED: METHOCARBAMOL 500 MG TABLET PO PRN (19:47)
[2020-08-08] MEDS ORDERED: MENTHOL/PHENOL 1 EACH UD MM PRN (19:47)
[2020-08-08] MEDS ORDERED: IBUPROFEN 400 MG TABLET (FP) PO PRN (19:47)
[2020-08-08] MEDS ORDERED: MAGNESIUM HYDROX 2400MG/30ML ORAL SUSPENSION 30 ML CUP PO PRN (19:47)
[2020-08-08] MEDS ORDERED: BISMUTH SUBSALICYLATE 524 MG/30 ML UD PO PRN (19:47)
[2020-08-08] MEDS ORDERED: hydrOXYzine PAMOATE 25 MG CAPSULE (FP) PO PRN (19:53)
[2020-08-08] MEDS ORDERED: MELATONIN 5 MG TABLETS PO PRN (19:54)
[2020-08-08] MEDS: THIAMINE HCL 100 MG TABLET (FP) PO SCH (23:15)
[2020-08-08] MEDS: chlordiazePOXIDE HCL 25 MG CAPSULE PO SCH (23:15)
[2020-08-09] MEDS: CEPHALEXIN MONOHYDRATE 500 MG CAPSULE (UD) PO SCH ×4 (01:18→18:26)
[2020-08-09] MEDS: chlordiazePOXIDE HCL 25 MG CAPSULE PO SCH ×5 (06:59→22:55)
[2020-08-09] MEDS ORDERED: METHADONE HCL 10 MG TABLET PO SCH (09:30)
[2020-08-09] MEDS ORDERED: METHADONE HCL 10 MG TABLET ONE (09:43)
[2020-08-09] MEDS ORDERED: METHADONE HCL 40 MG DISPERSABLE TABLET ONE (09:44)
[2020-08-09] MEDS ORDERED: NICOTINE 14 MG/24 HOURS TOPICAL PATCH TD SCH (10:00)
[2020-08-09] MEDS: PRENATAL VITAMINS W/ FOLIC ACID TABLET (FP) PO SCH (10:17)
[2020-08-09] MEDS: NICOTINE 14 MG/24 HOURS TOPICAL PATCH TD SCH (10:17)
[2020-08-09] MEDS: METHADONE 200 MG, METHADONE 20 MG PO SCH (10:18)
[2020-08-09] MEDS: NICOTINE POLACRILEX 2 MG GUM BUC PRN (10:23)
[2020-08-09] MEDS: chlordiazePOXIDE HCL 25 MG CAPSULE PO PRN (12:44)
[2020-08-09] MEDS: THIAMINE HCL 100 MG TABLET (FP) PO SCH (22:55)
[2020-08-10] MEDS: CEPHALEXIN MONOHYDRATE 500 MG CAPSULE (UD) PO SCH ×4 (01:15→18:45)
[2020-08-10] MEDS ORDERED: METHADONE HCL 10 MG TABLET ONE (04:33)
[2020-08-10] MEDS ORDERED: METHADONE HCL 40 MG DISPERSABLE TABLET ONE (04:34)
[2020-08-10] MEDS: METHADONE 200 MG, METHADONE 20 MG PO SCH (06:33)
[2020-08-10] MEDS: chlordiazePOXIDE HCL 25 MG CAPSULE PO SCH ×3 (06:34→18:45)
[2020-08-10] MEDS: NICOTINE POLACRILEX 2 MG GUM BUC PRN ×4 (06:35→18:46)
[2020-08-10] MEDS: NICOTINE 14 MG/24 HOURS TOPICAL PATCH TD SCH (10:27)
[2020-08-10] MEDS: PRENATAL VITAMINS W/ FOLIC ACID TABLET (FP) PO SCH (10:27)
[2020-08-10 10:41] LABS: HEMOGLOBIN 13.2 GM/dL (11.7-16.9); MCH 27.1 pg (25.7-33.7); MCHC 32.9 g/dl (32.0-35.9); MEAN CELL VOLUME 82.2 fl (80-96); MEAN PLT VOLUME 10.4 fl (7.5-11.1); PLATELET COUNT 253 K/MM3 (134-434); RBC 4.87 M/mm3 (4.00-5.60); RDW 14.4 % (11.9-15.9); WHITE BLOOD COUNT 4.9 K/mm3 (4.0-10.0)
[2020-08-10 10:56] LABS: POTASSIUM 4.4 mmol/L (3.5-5.1)
[2020-08-10 10:59] LABS: ALBUMIN 3.6 g/dl (3.4-5.0); BLOOD UREA NITROGEN 16.9 mg/dL (7-18); CALCIUM 9.4 mg/dL (8.5-10.1)
[2020-08-10 11:02] LABS: CREATININE 0.9 mg/dL (0.55-1.3)
[2020-08-10 11:04] LABS: BILIRUBIN,TOTAL 0.3 mg/dL (0.2-1); TOT PROT 6.6 g/dl (6.4-8.2)
[2020-08-10] MEDS: chlordiazePOXIDE HCL 25 MG CAPSULE PO PRN (14:54)
[2020-08-10] MEDS: THIAMINE HCL 100 MG TABLET (FP) PO SCH (23:50)
[2020-08-11] MEDS ORDERED: chlordiazePOXIDE HCL 10 MG CAPSULE PO PRN
[2020-08-11] MEDS: chlordiazePOXIDE HCL 25 MG CAPSULE PO SCH (00:22)
[2020-08-11] MEDS: CEPHALEXIN MONOHYDRATE 500 MG CAPSULE (UD) PO SCH ×5 (01:41→23:50)
[2020-08-11] MEDS ORDERED: METHADONE HCL 10 MG TABLET ONE (04:42)
[2020-08-11] MEDS ORDERED: METHADONE HCL 40 MG DISPERSABLE TABLET ONE (04:43)
[2020-08-11] MEDS: chlordiazePOXIDE HCL 10 MG CAPSULE PO SCH ×4 (06:19→22:11)
[2020-08-11] MEDS: METHADONE 200 MG, METHADONE 20 MG PO SCH (06:20)
[2020-08-11] MEDS: PRENATAL VITAMINS W/ FOLIC ACID TABLET (FP) PO SCH (10:03)
[2020-08-11] MEDS: NICOTINE 14 MG/24 HOURS TOPICAL PATCH TD SCH (10:04)
[2020-08-11] MEDS: NICOTINE POLACRILEX 2 MG GUM BUC PRN ×3 (10:05→22:12)
[2020-08-11] MEDS: THIAMINE HCL 100 MG TABLET (FP) PO SCH (22:11)
[2020-08-12] MEDS ORDERED: METHADONE HCL 10 MG TABLET ONE (05:08)
[2020-08-12] MEDS ORDERED: METHADONE HCL 40 MG DISPERSABLE TABLET ONE (05:09)
[2020-08-12] MEDS: CEPHALEXIN MONOHYDRATE 500 MG CAPSULE (UD) PO SCH ×4 (05:43→23:54)
[2020-08-12] MEDS: chlordiazePOXIDE HCL 10 MG CAPSULE PO SCH ×2 (05:44→17:44)
[2020-08-12] MEDS: METHADONE 200 MG, METHADONE 20 MG PO SCH (05:45)
[2020-08-12] MEDS: NICOTINE POLACRILEX 2 MG GUM BUC PRN ×3 (05:46→17:45)
[2020-08-12] MEDS: NICOTINE 14 MG/24 HOURS TOPICAL PATCH TD SCH (10:28)
[2020-08-12] MEDS: PRENATAL VITAMINS W/ FOLIC ACID TABLET (FP) PO SCH (10:28)
[2020-08-12] MEDS: THIAMINE HCL 100 MG TABLET (FP) PO SCH (22:41)
[2020-08-13] MEDS ORDERED: METHADONE HCL 10 MG TABLET ONE (04:45)
[2020-08-13] MEDS ORDERED: METHADONE HCL 40 MG DISPERSABLE TABLET ONE (04:46)
[2020-08-13] MEDS ORDERED: chlordiazePOXIDE HCL 10 MG CAPSULE PO ONE (05:00)
[2020-08-13] MEDS: METHADONE 200 MG, METHADONE 20 MG PO SCH (05:58)
[2020-08-13] MEDS: CEPHALEXIN MONOHYDRATE 500 MG CAPSULE (UD) PO SCH ×2 (05:59→11:16)
[2020-08-13] MEDS: NICOTINE 14 MG/24 HOURS TOPICAL PATCH TD SCH (09:19)
[2020-08-13] MEDS: PRENATAL VITAMINS W/ FOLIC ACID TABLET (FP) PO SCH (09:19)
[2020-08-13 09:48] VITALS: BP 112/75; PULSE 56; TEMP 97.1
[2020-08-13] MEDS: NICOTINE POLACRILEX 2 MG GUM BUC PRN (11:15)
== END 2020-08-13 11:32 | disposition other institution (70) | DRG 773 ==
LOC: YASAS 13:49 → Y3N 18:50
PROVIDERS: ADMIT Allergy & Immunology; ATTEND Allergy & Immunology
PROC: HZ2ZZZZ Detoxification Services for Substance Abuse Treatment (ICD-10-PCS; principal; 2020-08-08)
DX: F10.230 Alcohol dependence with withdrawal, uncomplicated (principal); F11.20 Opioid dependence, uncomplicated; F13.230 Sedative, hypnotic or anxiolytic dependence with withdrawal, uncomplicated; F15.20 Other stimulant dependence, uncomplicated; F16.20 Hallucinogen dependence, uncomplicated; F14.20 Cocaine dependence, uncomplicated; F17.210 Nicotine dependence, cigarettes, uncomplicated; H55.00 Unspecified nystagmus; G40.89 Other seizures; Z86.19 Personal history of other infectious and parasitic diseases; Z88.8 Allergy status to other drugs, medicaments and biological substances
CPT/HCPCS: 36415; 80053; 85027; 86780; C9803; U0003

== ENCOUNTER 2020-08-13 11:10 | Inpatient (IN) | payer OTHER ==
[2020-08-13] MEDS ORDERED: P-EPHED 60MG/TRIPROLIDI 2.5MG TABLET PO PRN (14:51)
[2020-08-13] MEDS ORDERED: MAGNESIUM CITRATE 300 ML BOTTLE PO PRN (14:51)
[2020-08-13] MEDS ORDERED: IBUPROFEN 400 MG TABLET (FP) PO PRN (14:51)
[2020-08-13] MEDS ORDERED: LOPERAMIDE HCL 2 MG CAPSULE PO PRN (14:51)
[2020-08-13] MEDS ORDERED: guaiFENesin 200 MG/10 ML 10 ML UNIT-DOSE CUPS PO PRN (14:51)
[2020-08-13] MEDS ORDERED: MAGNESIUM HYDROX 2400MG/30ML ORAL SUSPENSION 30 ML CUP PO PRN (14:51)
[2020-08-13] MEDS ORDERED: MENTHOL/PHENOL 1 EACH UD MM PRN (14:51)
[2020-08-13] MEDS ORDERED: ACETAMINOPHEN 325 MG TABLET (FP) PO PRN (14:51)
[2020-08-13] MEDS ORDERED: hydrOXYzine PAMOATE 25 MG CAPSULE (FP) PO PRN (14:51)
[2020-08-13] MEDS ORDERED: MAG HYDROX/AL HYDROX/SIMETH 30 ML UNIT-DOSE CUP PO PRN (14:51)
[2020-08-13] MEDS: THIAMINE HCL 100 MG TABLET (FP) PO SCH (21:13)
[2020-08-13] MEDS: MELATONIN 5 MG TABLETS PO SCH (21:14)
[2020-08-14] MEDS ORDERED: METHADONE HCL 10 MG TABLET PO SCH (06:00)
[2020-08-14] MEDS ORDERED: METHADONE HCL 10 MG TABLET ONE (06:32)
[2020-08-14] MEDS ORDERED: METHADONE HCL 40 MG DISPERSABLE TABLET ONE (06:33)
[2020-08-14] MEDS: METHADONE 200 MG, METHADONE 20 MG PO SCH (06:34)
[2020-08-14] MEDS: NICOTINE POLACRILEX 2 MG GUM BUC PRN ×3 (06:36→22:09)
[2020-08-14] MEDS: PRENATAL VITAMINS W/ FOLIC ACID TABLET (FP) PO SCH (10:02)
[2020-08-14] MEDS: NICOTINE 14 MG/24 HOURS TOPICAL PATCH TD SCH (10:03)
[2020-08-14] MEDS: MELATONIN 5 MG TABLETS PO SCH (22:05)
[2020-08-14] MEDS: THIAMINE HCL 100 MG TABLET (FP) PO SCH (22:09)
[2020-08-15] MEDS ORDERED: METHADONE HCL 10 MG TABLET ONE (03:27)
[2020-08-15] MEDS ORDERED: METHADONE HCL 40 MG DISPERSABLE TABLET ONE (03:27)
[2020-08-15] MEDS: METHADONE 200 MG, METHADONE 20 MG PO SCH (06:45)
[2020-08-15] MEDS: NICOTINE POLACRILEX 2 MG GUM BUC PRN ×3 (06:47→11:44)
[2020-08-15] MEDS: NICOTINE 14 MG/24 HOURS TOPICAL PATCH TD SCH (09:10)
[2020-08-15] MEDS: PRENATAL VITAMINS W/ FOLIC ACID TABLET (FP) PO SCH (09:11)
[2020-08-15] MEDS: HYDROCORTISONE 1% TOPICAL CREAM 30 GM TUBE TP SCH ×2 (13:41→21:04)
[2020-08-15] MEDS: THIAMINE HCL 100 MG TABLET (FP) PO SCH (21:04)
[2020-08-15] MEDS: MELATONIN 5 MG TABLETS PO SCH (21:04)
[2020-08-16] MEDS ORDERED: METHADONE HCL 40 MG DISPERSABLE TABLET ONE (03:41)
[2020-08-16] MEDS ORDERED: METHADONE HCL 10 MG TABLET ONE (03:41)
[2020-08-16] MEDS: METHADONE 200 MG, METHADONE 20 MG PO SCH (06:35)
[2020-08-16] MEDS: NICOTINE POLACRILEX 2 MG GUM BUC PRN ×3 (06:36→14:38)
[2020-08-16] MEDS: NICOTINE 14 MG/24 HOURS TOPICAL PATCH TD SCH (09:19)
[2020-08-16] MEDS: PRENATAL VITAMINS W/ FOLIC ACID TABLET (FP) PO SCH (09:19)
[2020-08-16] MEDS: HYDROCORTISONE 1% TOPICAL CREAM 30 GM TUBE TP SCH ×2 (09:20→21:30)
[2020-08-16] MEDS: MELATONIN 5 MG TABLETS PO SCH (21:30)
[2020-08-16] MEDS: THIAMINE HCL 100 MG TABLET (FP) PO SCH (21:31)
[2020-08-17] MEDS ORDERED: METHADONE HCL 40 MG DISPERSABLE TABLET ONE (03:16)
[2020-08-17] MEDS ORDERED: METHADONE HCL 10 MG TABLET ONE (03:16)
[2020-08-17] MEDS: METHADONE 200 MG, METHADONE 20 MG PO SCH (06:38)
[2020-08-17] MEDS: NICOTINE POLACRILEX 2 MG GUM BUC PRN ×3 (06:40→12:21)
[2020-08-17] MEDS: HYDROCORTISONE 1% TOPICAL CREAM 30 GM TUBE TP SCH ×2 (08:59→21:20)
[2020-08-17] MEDS: PRENATAL VITAMINS W/ FOLIC ACID TABLET (FP) PO SCH (08:59)
[2020-08-17] MEDS: NICOTINE 14 MG/24 HOURS TOPICAL PATCH TD SCH (08:59)
[2020-08-17] MEDS: MELATONIN 5 MG TABLETS PO SCH (21:20)
[2020-08-17] MEDS: THIAMINE HCL 100 MG TABLET (FP) PO SCH (21:21)
[2020-08-18] MEDS ORDERED: METHADONE HCL 10 MG TABLET ONE (03:17)
[2020-08-18] MEDS ORDERED: METHADONE HCL 40 MG DISPERSABLE TABLET ONE (03:18)
[2020-08-18] MEDS: METHADONE 200 MG, METHADONE 20 MG PO SCH (06:24)
[2020-08-18] MEDS: NICOTINE POLACRILEX 2 MG GUM BUC PRN ×3 (06:26→15:32)
[2020-08-18] MEDS: NICOTINE 14 MG/24 HOURS TOPICAL PATCH TD SCH (09:48)
[2020-08-18] MEDS: PRENATAL VITAMINS W/ FOLIC ACID TABLET (FP) PO SCH (09:50)
[2020-08-18] MEDS: HYDROCORTISONE 1% TOPICAL CREAM 30 GM TUBE TP SCH (09:52)
[2020-08-18] MEDS: MELATONIN 5 MG TABLETS PO SCH (21:26)
[2020-08-18] MEDS: THIAMINE HCL 100 MG TABLET (FP) PO SCH (21:27)
[2020-08-19] MEDS ORDERED: METHADONE HCL 40 MG DISPERSABLE TABLET ONE (03:30)
[2020-08-19] MEDS ORDERED: METHADONE HCL 10 MG TABLET ONE (03:30)
[2020-08-19] MEDS: METHADONE 200 MG, METHADONE 20 MG PO SCH (06:31)
[2020-08-19] MEDS: NICOTINE POLACRILEX 2 MG GUM BUC PRN ×3 (06:34→21:12)
[2020-08-19] MEDS: PRENATAL VITAMINS W/ FOLIC ACID TABLET (FP) PO SCH (10:10)
[2020-08-19] MEDS: NICOTINE 14 MG/24 HOURS TOPICAL PATCH TD SCH (10:10)
[2020-08-19] MEDS: THIAMINE HCL 100 MG TABLET (FP) PO SCH (21:11)
[2020-08-19] MEDS: MELATONIN 5 MG TABLETS PO SCH (21:11)
[2020-08-20] MEDS ORDERED: METHADONE HCL 40 MG DISPERSABLE TABLET ONE (06:35)
[2020-08-20] MEDS ORDERED: METHADONE HCL 10 MG TABLET ONE (06:35)
[2020-08-20] MEDS: NICOTINE POLACRILEX 2 MG GUM BUC PRN ×4 (06:39→20:27)
[2020-08-20] MEDS: METHADONE 200 MG, METHADONE 20 MG PO SCH (06:39)
[2020-08-20] MEDS: NICOTINE 14 MG/24 HOURS TOPICAL PATCH TD SCH (09:47)
[2020-08-20] MEDS: PRENATAL VITAMINS W/ FOLIC ACID TABLET (FP) PO SCH (09:47)
[2020-08-20] MEDS: MELATONIN 5 MG TABLETS PO SCH (21:03)
[2020-08-20] MEDS: THIAMINE HCL 100 MG TABLET (FP) PO SCH (21:03)
[2020-08-21] MEDS ORDERED: METHADONE HCL 10 MG TABLET ONE (03:16)
[2020-08-21] MEDS ORDERED: METHADONE HCL 40 MG DISPERSABLE TABLET ONE (03:16)
[2020-08-21] MEDS: METHADONE 200 MG, METHADONE 20 MG PO SCH (06:35)
[2020-08-21] MEDS: NICOTINE POLACRILEX 2 MG GUM BUC PRN ×3 (06:37→15:57)
[2020-08-21] MEDS: NICOTINE 14 MG/24 HOURS TOPICAL PATCH TD SCH (09:30)
[2020-08-21] MEDS: PRENATAL VITAMINS W/ FOLIC ACID TABLET (FP) PO SCH (09:30)
[2020-08-21] MEDS ORDERED: HYDROCORTISONE 0.5% TOPICAL OINTMENT TUBE TP PRN (17:05)
[2020-08-21] MEDS: MELATONIN 5 MG TABLETS PO SCH (21:03)
[2020-08-21] MEDS: THIAMINE HCL 100 MG TABLET (FP) PO SCH (21:03)
[2020-08-22] MEDS ORDERED: METHADONE HCL 10 MG TABLET ONE (03:19)
[2020-08-22] MEDS ORDERED: METHADONE HCL 40 MG DISPERSABLE TABLET ONE (03:19)
[2020-08-22] MEDS: NICOTINE POLACRILEX 2 MG GUM BUC PRN ×3 (06:42→21:21)
[2020-08-22] MEDS: METHADONE 200 MG, METHADONE 20 MG PO SCH (06:42)
[2020-08-22 07:11] VITALS: TEMP 97.3
[2020-08-22] MEDS: NICOTINE 14 MG/24 HOURS TOPICAL PATCH TD SCH (09:23)
[2020-08-22] MEDS: PRENATAL VITAMINS W/ FOLIC ACID TABLET (FP) PO SCH (09:24)
[2020-08-22] MEDS: MELATONIN 5 MG TABLETS PO SCH (21:19)
[2020-08-22] MEDS: THIAMINE HCL 100 MG TABLET (FP) PO SCH (21:19)
[2020-08-23] MEDS ORDERED: METHADONE HCL 10 MG TABLET ONE (03:56)
[2020-08-23] MEDS ORDERED: METHADONE HCL 40 MG DISPERSABLE TABLET ONE (03:56)
[2020-08-23] MEDS: METHADONE 200 MG, METHADONE 20 MG PO SCH (06:28)
[2020-08-23] MEDS: NICOTINE POLACRILEX 2 MG GUM BUC PRN ×3 (06:31→12:39)
[2020-08-23 06:43] VITALS: BP 118/79; PULSE 66
[2020-08-23] MEDS: NICOTINE 14 MG/24 HOURS TOPICAL PATCH TD SCH (09:44)
[2020-08-23] MEDS: PRENATAL VITAMINS W/ FOLIC ACID TABLET (FP) PO SCH ×2 (09:44→10:00)
== END 2020-08-23 14:52 | disposition home or self-care (01) | DRG 772 ==
LOC: YASAS 11:10 → Y3E 11:11
PROVIDERS: ADMIT Allergy & Immunology; ATTEND Allergy & Immunology
PROC: HZ42ZZZ Group Counseling for Substance Abuse Treatment, Cognitive-Behavioral (ICD-10-PCS; principal; 2020-08-13)
DX: F10.20 Alcohol dependence, uncomplicated (principal); F13.20 Sedative, hypnotic or anxiolytic dependence, uncomplicated; F14.20 Cocaine dependence, uncomplicated; F15.20 Other stimulant dependence, uncomplicated; F11.20 Opioid dependence, uncomplicated; L25.9 Unspecified contact dermatitis, unspecified cause; Z88.8 Allergy status to other drugs, medicaments and biological substances
CPT/HCPCS: C9803; U0003

== ENCOUNTER 2021-12-20 14:36 | Inpatient (IN) | payer OTHER ==
[2021-12-20 15:52] VITALS: BMI 19.2
[2021-12-20] MEDS ORDERED: ACETAMINOPHEN 325 MG TABLET (FP) PO PRN ×2 (17:39)
[2021-12-20] MEDS ORDERED: IBUPROFEN 400 MG TABLET (FP) PO PRN (17:39)
[2021-12-20] MEDS ORDERED: IBUPROFEN 600 MG TABLET (FP) PO PRN (17:39)
[2021-12-20] MEDS ORDERED: DICYCLOMINE HCL 10 MG CAPSULE PO PRN (17:39)
[2021-12-20] MEDS ORDERED: NALOXONE HCL 0.4 MG/ML VIAL IM PRN (17:39)
[2021-12-20] MEDS ORDERED: MAGNESIUM HYDROX 2400MG/30ML ORAL SUSPENSION 30 ML CUP PO PRN (17:39)
[2021-12-20] MEDS ORDERED: MAGNESIUM CITRATE 300 ML BOTTLE PO PRN (17:39)
[2021-12-20] MEDS ORDERED: MAG HYDROX/AL HYDROX/SIMETH 30 ML UNIT-DOSE CUP PO PRN (17:39)
[2021-12-20] MEDS ORDERED: LOPERAMIDE HCL 2 MG CAPSULE PO PRN (17:39)
[2021-12-20] MEDS ORDERED: BISMUTH SUBSALICYLATE 524 MG/30 ML PO PRN (17:39)
[2021-12-20] MEDS ORDERED: BENZOCAINE/MENTHOL (CHLORASEPTIC ) LOZENGE MM PRN (17:39)
[2021-12-20] MEDS: diazePAM 5 MG TABLET PO PRN (19:27)
[2021-12-20] MEDS: NICOTINE POLACRILEX 2 MG GUM BUC PRN (19:33)
[2021-12-20] MEDS: diazePAM 5 MG TABLET PO SCH (22:21)
[2021-12-20] MEDS: THIAMINE HCL 100 MG TABLET (FP) PO SCH (22:21)
[2021-12-21] MEDS: MELATONIN 5 MG TABLETS PO SCH ×2 (00:12→22:45)
[2021-12-21] MEDS: diazePAM 5 MG TABLET PO SCH ×4 (05:30→23:13)
[2021-12-21] MEDS ORDERED: methaDONE HCL 10 MG TABLET PO ONE (09:22)
[2021-12-21] MEDS: PRENATAL VITAMINS W/ FOLIC ACID TABLET (FP) PO SCH (10:06)
[2021-12-21] MEDS: NICOTINE POLACRILEX 2 MG GUM BUC PRN ×4 (10:10→20:06)
[2021-12-21] MEDS: NICOTINE 7 MG/24 HOURS TOPICAL PATCH TD SCH (10:11)
[2021-12-21] MEDS: diazePAM 5 MG TABLET PO PRN ×2 (13:06→20:05)
[2021-12-21 14:34] LABS: HEMOGLOBIN 12.4 GM/dL (11.7-16.9); MCH 26.3 pg (25.7-33.7); MCHC 32.6 g/dl (32.0-35.9); MEAN CELL VOLUME 80.6 fl (80-96); MEAN PLT VOLUME 9.5 fl (7.5-11.1); PLATELET COUNT 304 10^3/uL (134-434); RBC 4.71 M/mm3 (4.00-5.60); RDW 14.4 % (11.9-15.9); WHITE BLOOD COUNT 6.6 K/mm3 (4.0-10.0)
[2021-12-21 15:21] LABS: BILIRUBIN,TOTAL 0.2 mg/dL (0.2-1)
[2021-12-21 15:35] LABS: ALBUMIN 3.1 g/dl (3.4-5.0)
[2021-12-21 15:37] LABS: CALCIUM 8.6 mg/dL (8.5-10.1)
[2021-12-21 15:38] LABS: CREATININE 0.7 mg/dL (0.55-1.3)
[2021-12-21 15:39] LABS: TOT PROT 6.3 g/dl (6.4-8.2)
[2021-12-21] MEDS: METHOCARBAMOL 500 MG TABLET PO PRN (18:39)
[2021-12-21] MEDS: THIAMINE HCL 100 MG TABLET (FP) PO SCH (22:45)
[2021-12-22] MEDS: NICOTINE POLACRILEX 2 MG GUM BUC PRN ×5 (02:45→13:03)
[2021-12-22] MEDS: diazePAM 5 MG TABLET PO PRN ×5 (02:47→22:05)
[2021-12-22] MEDS: diazePAM 5 MG TABLET PO SCH ×3 (05:56→22:06)
[2021-12-22] MEDS ORDERED: methaDONE HCL 10 MG TABLET PO SCH (06:00)
[2021-12-22] MEDS: PRENATAL VITAMINS W/ FOLIC ACID TABLET (FP) PO SCH (10:17)
[2021-12-22] MEDS: NICOTINE 7 MG/24 HOURS TOPICAL PATCH TD SCH (10:18)
[2021-12-22] MEDS: METHOCARBAMOL 500 MG TABLET PO PRN (10:18)
[2021-12-22] MEDS ORDERED: HYDROCORTISONE 1% TOPICAL LOTION 118 ML BOTTLE TP PRN (12:57)
[2021-12-22] MEDS ORDERED: BACITRACIN 0.9 GM PACKET TP PRN (12:59)
[2021-12-22] MEDS: NICOTINE POLACRILEX 4 MG GUM BUC PRN ×4 (14:18→22:08)
[2021-12-22] MEDS: THIAMINE HCL 100 MG TABLET (FP) PO SCH (22:05)
[2021-12-22] MEDS: MELATONIN 5 MG TABLETS PO SCH (22:07)
[2021-12-23] MEDS: diazePAM 5 MG TABLET PO PRN ×4 (03:38→19:29)
[2021-12-23] MEDS: diazePAM 5 MG TABLET PO SCH ×2 (05:20→19:49)
[2021-12-23] MEDS: NICOTINE POLACRILEX 4 MG GUM BUC PRN ×3 (07:45→14:44)
[2021-12-23] MEDS ORDERED: ONDANSETRON *ODT* 4 MG TABLET SL PRN ×2 (09:18→16:00)
[2021-12-23] MEDS: METHOCARBAMOL 500 MG TABLET PO PRN (09:26)
[2021-12-23] MEDS: PRENATAL VITAMINS W/ FOLIC ACID TABLET (FP) PO SCH (10:14)
[2021-12-23] MEDS ORDERED: ONDANSETRON 4 MG TABLET PO ONE (10:15)
[2021-12-23] MEDS: NICOTINE 10 MG CARTRIDGE (INHALER) IH SCH (15:56)
[2021-12-24] MEDS: NICOTINE POLACRILEX 4 MG GUM BUC PRN ×2 (00:39→05:38)
[2021-12-24] MEDS: MELATONIN 5 MG TABLETS PO SCH (01:10)
[2021-12-24] MEDS: THIAMINE HCL 100 MG TABLET (FP) PO SCH (01:10)
[2021-12-24] MEDS ORDERED: diazePAM 5 MG TABLET PO ONE (06:00)
[2021-12-24 11:09] VITALS: RESP 18
[2021-12-24] MEDS: PRENATAL VITAMINS W/ FOLIC ACID TABLET (FP) PO SCH (13:57)
[2021-12-24] MEDS: NICOTINE 10 MG CARTRIDGE (INHALER) IH SCH (13:57)
[2021-12-24 18:35] VITALS: BP 132/76; PULSE 87; TEMP 97.1
== END 2021-12-24 15:30 | disposition short-term general hospital (02) | DRG 773 ==
LOC: YASAS 14:36 → Y6N 18:40
PROVIDERS: ADMIT Allergy & Immunology; ATTEND Surgery
PROC: HZ2ZZZZ Detoxification Services for Substance Abuse Treatment (ICD-10-PCS; principal; 2021-12-20)
DX: F10.230 Alcohol dependence with withdrawal, uncomplicated (principal); F11.20 Opioid dependence, uncomplicated; F13.230 Sedative, hypnotic or anxiolytic dependence with withdrawal, uncomplicated; F12.10 Cannabis abuse, uncomplicated; F17.210 Nicotine dependence, cigarettes, uncomplicated; J45.909 Unspecified asthma, uncomplicated; B18.1 Chronic viral hepatitis B without delta-agent; B18.2 Chronic viral hepatitis C; R10.9 Unspecified abdominal pain; Z86.69 Personal history of other diseases of the nervous system and sense organs; Z59.00 Homelessness unspecified
CPT/HCPCS: 36415; 80053; 85027; 86780; 87811; 93005; 93010; C9803-CS; U0003; U0005

== ENCOUNTER 2021-12-24 11:51 | Inpatient (IN) | payer OTHER ==
[2021-12-24] MEDS ORDERED: ONDANSETRON 4 MG/2 ML VIAL IVPUSH ONE (12:45)
[2021-12-24] MEDS ORDERED: FAMOTIDINE 20 MG/50 ML IVPB 20 MG/50 ML MG IVPB ONE ×2 (12:45→13:32)
[2021-12-24] MEDS ORDERED: SODIUM CHLORIDE 0.9% 500 ML INFUS.BAG IV ONE (12:45)
[2021-12-24] MEDS ORDERED: MAG HYDROX/AL HYDROX/SIMETH 30 ML UNIT-DOSE CUP PO ONE (12:46)
[2021-12-24] MEDS ORDERED: ACETAMINOPHEN 1000 MG/100 ML BAG IVPB ONE (12:46)
[2021-12-24] MEDS ORDERED: ACETAMINOPHEN INJECTION 100 ML IVPB ONE (13:32)
[2021-12-24] MEDS ORDERED: MAG HYDROX/AL HYDROX/SIMETH 30 ML UNIT-DOSE CUP ONE (13:32)
[2021-12-24] MEDS ORDERED: ONDANSETRON 4 MG/2 ML VIAL ONE (13:32)
[2021-12-24 14:02] LABS: BASO % 0.2 % (0-2.0); EOS % 3.4 % (0-4.5); LYMPH % 11.4 % (8-40); MCH 26.3 pg (25.7-33.7); MCHC 32.5 g/dl (32.0-35.9); MEAN CELL VOLUME 80.7 fl (80-96); MONO % 7.6 % (3.8-10.2); NEUT % 77.4 % (42.8-82.8); PLATELET COUNT 298 10^3/uL (134-434); RBC 4.58 M/mm3 (4.00-5.60); RDW 15.1 % (11.9-15.9)
[2021-12-24 14:25] LABS: ALBUMIN 2.9 g/dl (3.4-5.0); BLOOD UREA NITROGEN 17.1 mg/dL (7-18)
[2021-12-24 14:28] LABS: CREATININE 0.7 mg/dL (0.55-1.3)
[2021-12-24 14:29] LABS: BILIRUBIN,TOTAL 0.4 mg/dL (0.2-1)
[2021-12-24] MEDS ORDERED: cloNIDine HCL 0.1 MG TABLET PO ONE (17:28)
[2021-12-24] MEDS ORDERED: cloNIDine HCL 0.1 MG TABLET ONE (18:23)
[2021-12-24] MEDS ORDERED: ONDANSETRON 4 MG/2 ML VIAL IVPUSH PRN (19:02)
[2021-12-24] MEDS ORDERED: MAG HYDROX/AL HYDROX/SIMETH 30 ML UNIT-DOSE CUP PO PRN (19:05)
[2021-12-24] MEDS ORDERED: MAGNESIUM HYDROX 2400MG/30ML ORAL SUSPENSION 30 ML CUP PO PRN (19:06)
[2021-12-24] MEDS ORDERED: LACTATED RINGERS SOLUTION 1,000 ML IV SCH (19:15)
[2021-12-25] MEDS ORDERED: LACTATED RINGERS SOLUTION 1,000 ML/1,000 ML INFUS.BAG IV SCH (02:45)
[2021-12-25] MEDS: LACTATED RINGERS SOLUTION 1,000 ML IV SCH (08:27)
[2021-12-25] MEDS ORDERED: ACETAMINOPHEN INJECTION 100 ML IVPB ONE ×2 (10:21→19:41)
[2021-12-25] MEDS: ACETAMINOPHEN 1000 MG/100 ML BAG IVPB PRN ×2 (10:25→19:49)
[2021-12-25] MEDS ORDERED: PANTOPRAZOLE 40 MG TABLET PO ONE (10:26)
[2021-12-25] MEDS ORDERED: NICOTINE 14 MG/24 HOURS TOPICAL PATCH TD ONE (10:27)
[2021-12-25] MEDS ORDERED: ENOXAPARIN NA (PORCINE) 40 MG/0.4 ML DISP.SYRIN SQ ONE (10:27)
[2021-12-25] MEDS: ENOXAPARIN NA (PORCINE) 40 MG/0.4 ML DISP.SYRIN SQ SCH (10:35)
[2021-12-25] MEDS: NICOTINE 14 MG/24 HOURS TOPICAL PATCH TD SCH (10:36)
[2021-12-25] MEDS: PANTOPRAZOLE 40 MG TABLET PO SCH (10:36)
[2021-12-25] MEDS ORDERED: methaDONE HCL 10 MG TABLET (FOR DETOX USE ONLY) PO ONE (12:08)
[2021-12-25] MEDS ORDERED: methaDONE HCL 40 MG DISPERSABLE TABLET ONE (12:26)
[2021-12-25] MEDS ORDERED: methaDONE HCL 10 MG TABLET ONE (12:26)
[2021-12-25] MEDS ORDERED: Methylnaltrexone Bromide 12 MG/0.6 ML KIT SQ ONE (15:30)
[2021-12-25] MEDS ORDERED: MAG HYDROX/AL HYDROX/SIMETH 30 ML UNIT-DOSE CUP ONE (19:41)
[2021-12-25] MEDS ORDERED: diazePAM 5 MG TABLET ONE (21:37)
[2021-12-25] MEDS: diazePAM 5 MG TABLET PO SCH (21:38)
[2021-12-26] MEDS ORDERED: methaDONE HCL 10 MG TABLET (FOR DETOX USE ONLY) PO ONE (06:20)
[2021-12-26] MEDS ORDERED: methaDONE HCL 40 MG DISPERSABLE TABLET ONE (07:09)
[2021-12-26] MEDS ORDERED: methaDONE HCL 10 MG TABLET ONE (07:09)
[2021-12-26] MEDS: LACTATED RINGERS SOLUTION 1,000 ML IV SCH ×2 (07:40→22:00)
[2021-12-26] MEDS ORDERED: NICOTINE 14 MG/24 HOURS TOPICAL PATCH TD ONE (09:44)
[2021-12-26] MEDS ORDERED: methaDONE HCL 40 MG DISPERSABLE TABLET PO SCH (10:00)
[2021-12-26] MEDS ORDERED: diazePAM 5 MG TABLET PO SCH ×2 (10:00→22:00)
[2021-12-26] MEDS ORDERED: PANTOPRAZOLE 40 MG TABLET PO ONE (10:35)
[2021-12-26] MEDS: PANTOPRAZOLE 40 MG TABLET PO SCH (10:54)
[2021-12-26] MEDS: NICOTINE 14 MG/24 HOURS TOPICAL PATCH TD SCH (10:54)
[2021-12-26] MEDS: ENOXAPARIN NA (PORCINE) 40 MG/0.4 ML DISP.SYRIN SQ SCH (10:54)
[2021-12-26 14:00] LABS: HEMATOCRIT 32.5 % (35.4-49); HEMOGLOBIN 10.9 GM/dL (11.7-16.9); MCH 26.7 pg (25.7-33.7); MCHC 33.4 g/dl (32.0-35.9); MEAN CELL VOLUME 79.8 fl (80-96); MEAN PLT VOLUME 9.5 fl (7.5-11.1); PLATELET COUNT 254 10^3/uL (134-434); RBC 4.07 M/mm3 (4.00-5.60); RDW 15.1 % (11.9-15.9); WHITE BLOOD COUNT 8.8 K/mm3 (4.0-10.0)
[2021-12-26] MEDS ORDERED: POLYETHYLENE GLYCOL (HEALTHYLAX) 3350 17 GM PACKET ONE (14:34)
[2021-12-26 14:39] LABS: ALBUMIN 2.6 g/dl (3.4-5.0); BILIRUBIN,TOTAL 0.8 mg/dL (0.2-1); BLOOD UREA NITROGEN 6.9 mg/dL (7-18); CALCIUM 8.6 mg/dL (8.5-10.1); CREATININE 0.7 mg/dL (0.55-1.3); PHOSPHOROUS 3.9 mg/dL (2.5-4.9); TOT PROT 5.4 g/dl (6.4-8.2)
[2021-12-26] MEDS: POLYETHYLENE GLYCOL (HEALTHYLAX) 3350 17 GM PACKET PO SCH ×2 (14:41→23:02)
[2021-12-26] MEDS ORDERED: DOCUSATE SODIUM 100 MG CAPSULE (FP) PO SCH (22:00)
[2021-12-26 22:41] VITALS: RESP 20; BMI 20.5
[2021-12-26] MEDS: diazePAM 5 MG TABLET PO SCH (23:01)
[2021-12-27] MEDS ORDERED: methaDONE HCL 40 MG DISPERSABLE TABLET PO SCH ×2 (05:30→10:00)
[2021-12-27] MEDS: POLYETHYLENE GLYCOL (HEALTHYLAX) 3350 17 GM PACKET PO SCH ×2 (05:43→14:14)
[2021-12-27] MEDS: LACTATED RINGERS SOLUTION 1,000 ML IV SCH (07:20)
[2021-12-27] MEDS: NICOTINE 14 MG/24 HOURS TOPICAL PATCH TD SCH (09:17)
[2021-12-27] MEDS: ENOXAPARIN NA (PORCINE) 40 MG/0.4 ML DISP.SYRIN SQ SCH (09:18)
[2021-12-27] MEDS: NICOTINE POLACRILEX 4 MG GUM BUC PRN ×3 (09:19→15:40)
[2021-12-27] MEDS: PANTOPRAZOLE 40 MG TABLET PO SCH (09:36)
[2021-12-27 12:22] LABS: HEMATOCRIT 34.8 % (35.4-49); HEMOGLOBIN 11.6 GM/dL (11.7-16.9); MCH 26.5 pg (25.7-33.7); MCHC 33.2 g/dl (32.0-35.9); MEAN CELL VOLUME 79.7 fl (80-96); MEAN PLT VOLUME 9.3 fl (7.5-11.1); PLATELET COUNT 280 10^3/uL (134-434); RBC 4.37 M/mm3 (4.00-5.60); RDW 14.8 % (11.9-15.9); WHITE BLOOD COUNT 7.9 K/mm3 (4.0-10.0)
[2021-12-27 13:47] LABS: CALCIUM 9.5 mg/dL (8.5-10.1)
[2021-12-27 13:48] LABS: BLOOD UREA NITROGEN 11.2 mg/dL (7-18)
[2021-12-27 13:50] LABS: CREATININE 0.8 mg/dL (0.55-1.3)
[2021-12-27 13:52] LABS: BILIRUBIN,TOTAL 0.4 mg/dL (0.2-1); TOT PROT 6.5 g/dl (6.4-8.2)
[2021-12-27 13:54] LABS: ALBUMIN 3.2 g/dl (3.4-5.0)
[2021-12-27 14:45] VITALS: BP 105/54; PULSE 70; TEMP 99
== END 2021-12-27 15:51 | disposition other institution (70) | DRG 254 ==
LOC: JER 11:51 → JERBED 18:07 → J6S 12-26 21:55
PROVIDERS: ADMIT Internal Medicine; ATTEND Internal Medicine
DX: K59.03 Drug induced constipation (principal); Z72.89 Other problems related to lifestyle; F13.10 Sedative, hypnotic or anxiolytic abuse, uncomplicated; F12.10 Cannabis abuse, uncomplicated; K63.89 Other specified diseases of intestine; R11.2 Nausea with vomiting, unspecified; F41.8 Other specified anxiety disorders; D72.829 Elevated white blood cell count, unspecified; F17.200 Nicotine dependence, unspecified, uncomplicated; R91.1 Solitary pulmonary nodule; I95.89 Other hypotension; T40.2X5A Adverse effect of other opioids, initial encounter; I95.2 Hypotension due to drugs; T46.5X5A Adverse effect of other antihypertensive drugs, initial encounter
CPT/HCPCS: 0241U-QW; 36415; 74176-TC; 80053; 82962; 83690; 83735; 84100; 85025; 85027; 87045; 87046; 87324; 87449; 93005; 93010; 99285-25; J0735

== ENCOUNTER 2021-12-27 16:48 | Inpatient (IN) | payer OTHER ==
[2021-12-27 18:57] VITALS: BMI 20.9
[2021-12-27] MEDS ORDERED: NALOXONE HCL 0.4 MG/ML VIAL IM PRN (21:24)
[2021-12-27] MEDS ORDERED: P-EPHED 60MG/TRIPROLIDI 2.5MG TABLET PO PRN (21:24)
[2021-12-27] MEDS ORDERED: MAGNESIUM CITRATE 300 ML BOTTLE PO PRN (21:24)
[2021-12-27] MEDS ORDERED: MAGNESIUM HYDROX 2400MG/30ML ORAL SUSPENSION 30 ML CUP PO PRN (21:24)
[2021-12-27] MEDS ORDERED: guaiFENesin 200 MG/10 ML 10 ML UNIT-DOSE CUPS PO PRN (21:24)
[2021-12-27] MEDS ORDERED: LOPERAMIDE HCL 2 MG CAPSULE PO PRN (21:24)
[2021-12-27] MEDS ORDERED: MAG HYDROX/AL HYDROX/SIMETH 30 ML UNIT-DOSE CUP PO PRN (21:24)
[2021-12-27] MEDS ORDERED: IBUPROFEN 400 MG TABLET (FP) PO PRN (21:24)
[2021-12-28] MEDS ORDERED: methaDONE HCL 10 MG TABLET PO ONE (07:52)
[2021-12-28] MEDS: NICOTINE 10 MG CARTRIDGE (INHALER) IH PRN ×3 (09:04→21:11)
[2021-12-28] MEDS: NICOTINE POLACRILEX 4 MG GUM BUC PRN ×3 (09:04→16:29)
[2021-12-28] MEDS: PRENATAL VITAMINS W/ FOLIC ACID TABLET (FP) PO SCH (09:43)
[2021-12-28] MEDS: hydrOXYzine PAMOATE 25 MG CAPSULE (FP) PO SCH ×4 (09:43→22:47)
[2021-12-28] MEDS: NICOTINE 7 MG/24 HOURS TOPICAL PATCH TD SCH (09:43)
[2021-12-28 11:59] LABS: URINE APPEARANCE CLEAR; URINE BILIRUBIN NEGATIVE (NEGATIVE); URINE COLOR YELLOW; URINE GLUCOSE (UA) NEGATIVE (NEGATIVE); URINE KETONE NEGATIVE (NEGATIVE); URINE LEUK ESTERASE NEGATIVE (NEGATIVE); URINE NITRITE NEGATIVE (NEGATIVE); URINE PROTEIN NEGATIVE (NEGATIVE)
[2021-12-28 12:44] LABS: SYPHILIS W/ RPR CONF NON-REACTIVE (NONREACTIVE)
[2021-12-28] MEDS: TOLNAFTATE 1% CREAM 15 GM TUBE TP SCH (21:09)
[2021-12-28] MEDS: MELATONIN 5 MG TABLETS PO SCH ×2 (22:45→22:47)
[2021-12-28] MEDS: THIAMINE HCL 100 MG TABLET (FP) PO SCH ×2 (22:45→22:47)
[2021-12-29] MEDS: hydrOXYzine PAMOATE 25 MG CAPSULE (FP) PO SCH ×5 (06:00→22:40)
[2021-12-29] MEDS ORDERED: methaDONE HCL 10 MG TABLET PO SCH (06:00)
[2021-12-29] MEDS: NICOTINE POLACRILEX 4 MG GUM BUC PRN ×3 (06:03→19:41)
[2021-12-29] MEDS: NICOTINE 10 MG CARTRIDGE (INHALER) IH PRN ×2 (06:03→19:40)
[2021-12-29] MEDS: PRENATAL VITAMINS W/ FOLIC ACID TABLET (FP) PO SCH (11:25)
[2021-12-29] MEDS: NICOTINE 7 MG/24 HOURS TOPICAL PATCH TD SCH (11:30)
[2021-12-29] MEDS: TOLNAFTATE 1% CREAM 15 GM TUBE TP SCH ×2 (11:30→22:40)
[2021-12-29] MEDS: DOCUSATE SODIUM 100 MG CAPSULE (FP) PO SCH ×2 (13:09→22:40)
[2021-12-29] MEDS: COLLOIDAL OATMEAL 1 BAR EACH TP PRN (14:50)
[2021-12-29] MEDS: THIAMINE HCL 100 MG TABLET (FP) PO SCH (22:40)
[2021-12-29] MEDS: MELATONIN 5 MG TABLETS PO SCH (22:40)
[2021-12-30] MEDS: DOCUSATE SODIUM 100 MG CAPSULE (FP) PO SCH ×3 (06:09→21:36)
[2021-12-30] MEDS: hydrOXYzine PAMOATE 25 MG CAPSULE (FP) PO SCH ×5 (06:09→21:36)
[2021-12-30] MEDS: NICOTINE POLACRILEX 4 MG GUM BUC PRN ×3 (08:42→16:28)
[2021-12-30] MEDS: PRENATAL VITAMINS W/ FOLIC ACID TABLET (FP) PO SCH (10:19)
[2021-12-30] MEDS: NICOTINE 7 MG/24 HOURS TOPICAL PATCH TD SCH (10:19)
[2021-12-30] MEDS: TOLNAFTATE 1% CREAM 15 GM TUBE TP SCH ×2 (10:19→21:36)
[2021-12-30] MEDS: NICOTINE 10 MG CARTRIDGE (INHALER) IH PRN (12:58)
[2021-12-30] MEDS: THIAMINE HCL 100 MG TABLET (FP) PO SCH (21:36)
[2021-12-30] MEDS: MELATONIN 5 MG TABLETS PO SCH (21:36)
[2021-12-31] MEDS: DOCUSATE SODIUM 100 MG CAPSULE (FP) PO SCH ×3 (06:04→23:43)
[2021-12-31] MEDS: hydrOXYzine PAMOATE 25 MG CAPSULE (FP) PO SCH ×5 (06:04→23:43)
[2021-12-31] MEDS: NICOTINE POLACRILEX 4 MG GUM BUC PRN ×4 (06:07→23:41)
[2021-12-31] MEDS: NICOTINE 10 MG CARTRIDGE (INHALER) IH PRN (07:03)
[2021-12-31] MEDS: PRENATAL VITAMINS W/ FOLIC ACID TABLET (FP) PO SCH (10:31)
[2021-12-31] MEDS: NICOTINE 7 MG/24 HOURS TOPICAL PATCH TD SCH (10:31)
[2021-12-31] MEDS: TOLNAFTATE 1% CREAM 15 GM TUBE TP SCH ×2 (10:32→23:43)
[2021-12-31] MEDS: ACETAMINOPHEN 325 MG TABLET (FP) PO PRN (23:41)
[2021-12-31] MEDS: THIAMINE HCL 100 MG TABLET (FP) PO SCH (23:43)
[2021-12-31] MEDS: MELATONIN 5 MG TABLETS PO SCH (23:43)
[2022-01-01] MEDS: NICOTINE POLACRILEX 4 MG GUM BUC PRN ×4 (06:07→16:45)
[2022-01-01] MEDS: DOCUSATE SODIUM 100 MG CAPSULE (FP) PO SCH ×3 (06:08→23:06)
[2022-01-01] MEDS: hydrOXYzine PAMOATE 25 MG CAPSULE (FP) PO SCH ×5 (06:08→23:06)
[2022-01-01] MEDS: TOLNAFTATE 1% CREAM 15 GM TUBE TP SCH ×2 (09:49→23:06)
[2022-01-01] MEDS: NICOTINE 10 MG CARTRIDGE (INHALER) IH PRN (09:49)
[2022-01-01] MEDS: PRENATAL VITAMINS W/ FOLIC ACID TABLET (FP) PO SCH (09:49)
[2022-01-01] MEDS: NICOTINE 7 MG/24 HOURS TOPICAL PATCH TD SCH (09:53)
[2022-01-01] MEDS: ACETAMINOPHEN 325 MG TABLET (FP) PO PRN (19:09)
[2022-01-01] MEDS: MELATONIN 5 MG TABLETS PO SCH (23:06)
[2022-01-01] MEDS: THIAMINE HCL 100 MG TABLET (FP) PO SCH (23:06)
[2022-01-02] MEDS: DOCUSATE SODIUM 100 MG CAPSULE (FP) PO SCH ×3 (06:38→23:37)
[2022-01-02] MEDS: hydrOXYzine PAMOATE 25 MG CAPSULE (FP) PO SCH ×5 (06:38→23:37)
[2022-01-02] MEDS: NICOTINE 7 MG/24 HOURS TOPICAL PATCH TD SCH (10:44)
[2022-01-02] MEDS: PRENATAL VITAMINS W/ FOLIC ACID TABLET (FP) PO SCH (10:44)
[2022-01-02] MEDS: TOLNAFTATE 1% CREAM 15 GM TUBE TP SCH ×2 (10:44→23:37)
[2022-01-02] MEDS: NICOTINE 10 MG CARTRIDGE (INHALER) IH PRN (10:45)
[2022-01-02] MEDS: NICOTINE POLACRILEX 4 MG GUM BUC PRN ×2 (14:19→18:24)
[2022-01-02] MEDS: MELATONIN 5 MG TABLETS PO SCH (23:37)
[2022-01-02] MEDS: THIAMINE HCL 100 MG TABLET (FP) PO SCH (23:37)
[2022-01-03] MEDS: NICOTINE POLACRILEX 4 MG GUM BUC PRN ×2 (06:30→08:48)
[2022-01-03] MEDS: DOCUSATE SODIUM 100 MG CAPSULE (FP) PO SCH ×3 (06:31→22:00)
[2022-01-03] MEDS: hydrOXYzine PAMOATE 25 MG CAPSULE (FP) PO SCH ×5 (06:33→22:00)
[2022-01-03] MEDS: TOLNAFTATE 1% CREAM 15 GM TUBE TP SCH ×2 (09:58→22:00)
[2022-01-03] MEDS: NICOTINE 7 MG/24 HOURS TOPICAL PATCH TD SCH (09:58)
[2022-01-03] MEDS: PRENATAL VITAMINS W/ FOLIC ACID TABLET (FP) PO SCH (09:58)
[2022-01-03] MEDS: MELATONIN 5 MG TABLETS PO SCH (22:00)
[2022-01-03] MEDS: THIAMINE HCL 100 MG TABLET (FP) PO SCH (22:01)
[2022-01-04] MEDS: DOCUSATE SODIUM 100 MG CAPSULE (FP) PO SCH ×3 (06:29→21:46)
[2022-01-04] MEDS: hydrOXYzine PAMOATE 25 MG CAPSULE (FP) PO SCH ×5 (06:30→21:46)
[2022-01-04] MEDS: TOLNAFTATE 1% CREAM 15 GM TUBE TP SCH ×2 (10:25→21:47)
[2022-01-04] MEDS: NICOTINE 7 MG/24 HOURS TOPICAL PATCH TD SCH (10:25)
[2022-01-04] MEDS: PRENATAL VITAMINS W/ FOLIC ACID TABLET (FP) PO SCH (10:25)
[2022-01-04] MEDS: NICOTINE POLACRILEX 4 MG GUM BUC PRN (16:47)
[2022-01-04] MEDS: THIAMINE HCL 100 MG TABLET (FP) PO SCH (21:46)
[2022-01-04] MEDS: MELATONIN 5 MG TABLETS PO SCH (21:46)
[2022-01-05] MEDS ORDERED: methaDONE HCL 40 MG DISPERSABLE TABLET PO SCH (06:00)
[2022-01-05] MEDS: hydrOXYzine PAMOATE 25 MG CAPSULE (FP) PO SCH ×5 (06:03→21:10)
[2022-01-05] MEDS: DOCUSATE SODIUM 100 MG CAPSULE (FP) PO SCH ×3 (06:03→21:10)
[2022-01-05] MEDS: TOLNAFTATE 1% CREAM 15 GM TUBE TP SCH ×2 (10:14→21:10)
[2022-01-05] MEDS: PRENATAL VITAMINS W/ FOLIC ACID TABLET (FP) PO SCH (10:14)
[2022-01-05] MEDS: NICOTINE 10 MG CARTRIDGE (INHALER) IH PRN (10:14)
[2022-01-05] MEDS: NICOTINE 7 MG/24 HOURS TOPICAL PATCH TD SCH (10:14)
[2022-01-05] MEDS: NICOTINE POLACRILEX 4 MG GUM BUC PRN (18:20)
[2022-01-05] MEDS: SELENIUM SULFIDE 2.25% 180 ML SHAMPOO TP SCH (18:50)
[2022-01-05] MEDS: MELATONIN 5 MG TABLETS PO SCH (21:10)
[2022-01-05] MEDS: THIAMINE HCL 100 MG TABLET (FP) PO SCH (21:10)
[2022-01-06] MEDS: DOCUSATE SODIUM 100 MG CAPSULE (FP) PO SCH ×3 (06:10→21:54)
[2022-01-06] MEDS: NICOTINE POLACRILEX 4 MG GUM BUC PRN ×3 (06:12→19:37)
[2022-01-06] MEDS: hydrOXYzine PAMOATE 25 MG CAPSULE (FP) PO SCH ×5 (06:14→21:54)
[2022-01-06] MEDS: NICOTINE 7 MG/24 HOURS TOPICAL PATCH TD SCH (11:00)
[2022-01-06] MEDS: SELENIUM SULFIDE 2.25% 180 ML SHAMPOO TP SCH (11:02)
[2022-01-06] MEDS: PRENATAL VITAMINS W/ FOLIC ACID TABLET (FP) PO SCH (11:02)
[2022-01-06] MEDS: TOLNAFTATE 1% CREAM 15 GM TUBE TP SCH ×2 (11:02→22:06)
[2022-01-06] MEDS: THIAMINE HCL 100 MG TABLET (FP) PO SCH (21:54)
[2022-01-06] MEDS: MELATONIN 5 MG TABLETS PO SCH (21:54)
[2022-01-06] MEDS: NICOTINE 10 MG CARTRIDGE (INHALER) IH PRN (22:26)
[2022-01-07] MEDS: DOCUSATE SODIUM 100 MG CAPSULE (FP) PO SCH ×3 (06:06→21:52)
[2022-01-07] MEDS: NICOTINE POLACRILEX 4 MG GUM BUC PRN ×4 (06:07→20:27)
[2022-01-07] MEDS: hydrOXYzine PAMOATE 25 MG CAPSULE (FP) PO SCH ×5 (06:07→21:53)
[2022-01-07] MEDS: PRENATAL VITAMINS W/ FOLIC ACID TABLET (FP) PO SCH (09:32)
[2022-01-07] MEDS: NICOTINE 7 MG/24 HOURS TOPICAL PATCH TD SCH (09:32)
[2022-01-07] MEDS: TOLNAFTATE 1% CREAM 15 GM TUBE TP SCH ×2 (11:00→21:53)
[2022-01-07] MEDS: SELENIUM SULFIDE 2.25% 180 ML SHAMPOO TP SCH (17:25)
[2022-01-07] MEDS: MELATONIN 5 MG TABLETS PO SCH (21:52)
[2022-01-07] MEDS: THIAMINE HCL 100 MG TABLET (FP) PO SCH (21:53)
[2022-01-08] MEDS: DOCUSATE SODIUM 100 MG CAPSULE (FP) PO SCH ×3 (06:18→21:13)
[2022-01-08] MEDS: NICOTINE POLACRILEX 4 MG GUM BUC PRN ×3 (06:18→17:53)
[2022-01-08] MEDS: hydrOXYzine PAMOATE 25 MG CAPSULE (FP) PO SCH ×5 (06:18→21:13)
[2022-01-08] MEDS: SELENIUM SULFIDE 2.25% 180 ML SHAMPOO TP SCH (10:14)
[2022-01-08] MEDS: PRENATAL VITAMINS W/ FOLIC ACID TABLET (FP) PO SCH (10:14)
[2022-01-08] MEDS: TOLNAFTATE 1% CREAM 15 GM TUBE TP SCH ×2 (10:15→21:14)
[2022-01-08] MEDS: NICOTINE 7 MG/24 HOURS TOPICAL PATCH TD SCH (10:15)
[2022-01-08] MEDS: COLLOIDAL OATMEAL 1 BAR EACH TP PRN (17:53)
[2022-01-08] MEDS: MELATONIN 5 MG TABLETS PO SCH (21:13)
[2022-01-08] MEDS: THIAMINE HCL 100 MG TABLET (FP) PO SCH (21:13)
[2022-01-09] MEDS: NICOTINE POLACRILEX 4 MG GUM BUC PRN ×3 (05:59→18:11)
[2022-01-09] MEDS: hydrOXYzine PAMOATE 25 MG CAPSULE (FP) PO SCH ×5 (06:00→21:49)
[2022-01-09] MEDS: DOCUSATE SODIUM 100 MG CAPSULE (FP) PO SCH ×3 (06:00→21:49)
[2022-01-09] MEDS: NICOTINE 7 MG/24 HOURS TOPICAL PATCH TD SCH (10:06)
[2022-01-09] MEDS: PRENATAL VITAMINS W/ FOLIC ACID TABLET (FP) PO SCH (10:06)
[2022-01-09] MEDS: NICOTINE 10 MG CARTRIDGE (INHALER) IH PRN (10:07)
[2022-01-09] MEDS: SELENIUM SULFIDE 2.25% 180 ML SHAMPOO TP SCH (10:08)
[2022-01-09] MEDS: TOLNAFTATE 1% CREAM 15 GM TUBE TP SCH ×2 (10:09→21:49)
[2022-01-09] MEDS: THIAMINE HCL 100 MG TABLET (FP) PO SCH (21:49)
[2022-01-09] MEDS: MELATONIN 5 MG TABLETS PO SCH (21:49)
[2022-01-10] MEDS: hydrOXYzine PAMOATE 25 MG CAPSULE (FP) PO SCH ×3 (06:05→14:47)
[2022-01-10] MEDS: DOCUSATE SODIUM 100 MG CAPSULE (FP) PO SCH ×3 (06:05→21:24)
[2022-01-10] MEDS: NICOTINE POLACRILEX 4 MG GUM BUC PRN ×2 (06:06→18:09)
[2022-01-10] MEDS: NICOTINE 7 MG/24 HOURS TOPICAL PATCH TD SCH (10:00)
[2022-01-10] MEDS: PRENATAL VITAMINS W/ FOLIC ACID TABLET (FP) PO SCH (10:01)
[2022-01-10] MEDS: SELENIUM SULFIDE 2.25% 180 ML SHAMPOO TP SCH (10:01)
[2022-01-10] MEDS: TOLNAFTATE 1% CREAM 15 GM TUBE TP SCH ×2 (10:03→21:24)
[2022-01-10] MEDS: THIAMINE HCL 100 MG TABLET (FP) PO SCH (21:24)
[2022-01-10] MEDS: MELATONIN 5 MG TABLETS PO SCH (21:24)
[2022-01-11] MEDS: NICOTINE POLACRILEX 4 MG GUM BUC PRN ×4 (06:02→16:57)
[2022-01-11] MEDS: DOCUSATE SODIUM 100 MG CAPSULE (FP) PO SCH ×3 (06:03→22:56)
[2022-01-11] MEDS: PRENATAL VITAMINS W/ FOLIC ACID TABLET (FP) PO SCH (09:23)
[2022-01-11] MEDS: SELENIUM SULFIDE 2.25% 180 ML SHAMPOO TP SCH (09:23)
[2022-01-11] MEDS: NICOTINE 7 MG/24 HOURS TOPICAL PATCH TD SCH (09:23)
[2022-01-11] MEDS: TOLNAFTATE 1% CREAM 15 GM TUBE TP SCH ×2 (09:23→22:56)
[2022-01-11] MEDS: MELATONIN 5 MG TABLETS PO SCH (22:56)
[2022-01-11] MEDS: THIAMINE HCL 100 MG TABLET (FP) PO SCH (22:56)
[2022-01-12] MEDS: DOCUSATE SODIUM 100 MG CAPSULE (FP) PO SCH ×3 (05:58→21:34)
[2022-01-12] MEDS ORDERED: methaDONE HCL 10 MG TABLET PO SCH (06:00)
[2022-01-12] MEDS: NICOTINE POLACRILEX 4 MG GUM BUC PRN ×4 (06:01→21:34)
[2022-01-12] MEDS: NICOTINE 10 MG CARTRIDGE (INHALER) IH PRN ×2 (08:31→13:57)
[2022-01-12] MEDS: PRENATAL VITAMINS W/ FOLIC ACID TABLET (FP) PO SCH (10:19)
[2022-01-12] MEDS: NICOTINE 7 MG/24 HOURS TOPICAL PATCH TD SCH (10:19)
[2022-01-12] MEDS: TOLNAFTATE 1% CREAM 15 GM TUBE TP SCH ×2 (10:20→21:35)
[2022-01-12] MEDS: SELENIUM SULFIDE 2.25% 180 ML SHAMPOO TP SCH (10:21)
[2022-01-12] MEDS: THIAMINE HCL 100 MG TABLET (FP) PO SCH (21:34)
[2022-01-12] MEDS: MELATONIN 5 MG TABLETS PO SCH (21:34)
[2022-01-13] MEDS: DOCUSATE SODIUM 100 MG CAPSULE (FP) PO SCH ×3 (05:58→21:46)
[2022-01-13] MEDS: NICOTINE POLACRILEX 4 MG GUM BUC PRN ×3 (05:59→13:29)
[2022-01-13] MEDS: NICOTINE 7 MG/24 HOURS TOPICAL PATCH TD SCH (10:01)
[2022-01-13] MEDS: PRENATAL VITAMINS W/ FOLIC ACID TABLET (FP) PO SCH (10:01)
[2022-01-13] MEDS: TOLNAFTATE 1% CREAM 15 GM TUBE TP SCH ×2 (10:01→21:46)
[2022-01-13] MEDS: THIAMINE HCL 100 MG TABLET (FP) PO SCH (21:46)
[2022-01-13] MEDS: MELATONIN 5 MG TABLETS PO SCH (21:46)
[2022-01-14] MEDS: DOCUSATE SODIUM 100 MG CAPSULE (FP) PO SCH ×3 (05:54→21:39)
[2022-01-14] MEDS: NICOTINE 7 MG/24 HOURS TOPICAL PATCH TD SCH (09:29)
[2022-01-14] MEDS: PRENATAL VITAMINS W/ FOLIC ACID TABLET (FP) PO SCH (09:29)
[2022-01-14] MEDS: NICOTINE POLACRILEX 4 MG GUM BUC PRN ×2 (09:30→13:51)
[2022-01-14] MEDS: TOLNAFTATE 1% CREAM 15 GM TUBE TP SCH ×2 (09:31→21:39)
[2022-01-14] MEDS: COLLOIDAL OATMEAL 1 BAR EACH TP PRN (10:38)
[2022-01-14] MEDS: THIAMINE HCL 100 MG TABLET (FP) PO SCH (21:39)
[2022-01-14] MEDS: MELATONIN 5 MG TABLETS PO SCH (21:39)
[2022-01-15] MEDS: NICOTINE POLACRILEX 4 MG GUM BUC PRN ×3 (05:46→19:53)
[2022-01-15] MEDS: DOCUSATE SODIUM 100 MG CAPSULE (FP) PO SCH ×3 (05:46→23:12)
[2022-01-15] MEDS: PRENATAL VITAMINS W/ FOLIC ACID TABLET (FP) PO SCH (10:22)
[2022-01-15] MEDS: hydrOXYzine PAMOATE 25 MG CAPSULE (FP) PO PRN (10:22)
[2022-01-15] MEDS: NICOTINE 10 MG CARTRIDGE (INHALER) IH PRN (10:22)
[2022-01-15] MEDS: NICOTINE 7 MG/24 HOURS TOPICAL PATCH TD SCH (10:22)
[2022-01-15] MEDS: TOLNAFTATE 1% CREAM 15 GM TUBE TP SCH ×2 (10:23→23:12)
[2022-01-15] MEDS: MELATONIN 5 MG TABLETS PO SCH (23:12)
[2022-01-15] MEDS: THIAMINE HCL 100 MG TABLET (FP) PO SCH (23:12)
[2022-01-16] MEDS: DOCUSATE SODIUM 100 MG CAPSULE (FP) PO SCH ×3 (06:00→23:21)
[2022-01-16] MEDS: NICOTINE 10 MG CARTRIDGE (INHALER) IH PRN (08:38)
[2022-01-16] MEDS: NICOTINE POLACRILEX 4 MG GUM BUC PRN ×2 (08:39→11:36)
[2022-01-16] MEDS: NICOTINE 7 MG/24 HOURS TOPICAL PATCH TD SCH (11:00)
[2022-01-16] MEDS: PRENATAL VITAMINS W/ FOLIC ACID TABLET (FP) PO SCH (11:00)
[2022-01-16] MEDS: TOLNAFTATE 1% CREAM 15 GM TUBE TP SCH ×2 (11:00→23:21)
[2022-01-16] MEDS: ACETAMINOPHEN 325 MG TABLET (FP) PO PRN (11:36)
[2022-01-16] MEDS: MELATONIN 5 MG TABLETS PO SCH (23:21)
[2022-01-16] MEDS: THIAMINE HCL 100 MG TABLET (FP) PO SCH (23:21)
[2022-01-17] MEDS: DOCUSATE SODIUM 100 MG CAPSULE (FP) PO SCH ×3 (06:03→23:22)
[2022-01-17] MEDS: NICOTINE POLACRILEX 4 MG GUM BUC PRN ×3 (06:03→12:04)
[2022-01-17] MEDS: TOLNAFTATE 1% CREAM 15 GM TUBE TP SCH ×2 (09:53→23:22)
[2022-01-17] MEDS: PRENATAL VITAMINS W/ FOLIC ACID TABLET (FP) PO SCH (09:53)
[2022-01-17] MEDS: NICOTINE 10 MG CARTRIDGE (INHALER) IH PRN (09:53)
[2022-01-17] MEDS: NICOTINE 7 MG/24 HOURS TOPICAL PATCH TD SCH (09:54)
[2022-01-17] MEDS: THIAMINE HCL 100 MG TABLET (FP) PO SCH (23:22)
[2022-01-17] MEDS: MELATONIN 5 MG TABLETS PO SCH (23:22)
[2022-01-18] MEDS: DOCUSATE SODIUM 100 MG CAPSULE (FP) PO SCH ×3 (06:21→22:49)
[2022-01-18] MEDS: COLLOIDAL OATMEAL 1 BAR EACH TP PRN (06:23)
[2022-01-18] MEDS: NICOTINE POLACRILEX 4 MG GUM BUC PRN ×2 (06:25→10:12)
[2022-01-18] MEDS: NICOTINE 10 MG CARTRIDGE (INHALER) IH PRN (10:11)
[2022-01-18] MEDS: TOLNAFTATE 1% CREAM 15 GM TUBE TP SCH ×2 (10:12→22:49)
[2022-01-18] MEDS: NICOTINE 7 MG/24 HOURS TOPICAL PATCH TD SCH (10:12)
[2022-01-18] MEDS: PRENATAL VITAMINS W/ FOLIC ACID TABLET (FP) PO SCH (10:12)
[2022-01-18] MEDS: MELATONIN 5 MG TABLETS PO SCH (22:49)
[2022-01-18] MEDS: THIAMINE HCL 100 MG TABLET (FP) PO SCH (22:50)
[2022-01-19] MEDS: DOCUSATE SODIUM 100 MG CAPSULE (FP) PO SCH ×3 (06:26→22:52)
[2022-01-19] MEDS: NICOTINE POLACRILEX 4 MG GUM BUC PRN ×3 (06:28→16:40)
[2022-01-19] MEDS: NICOTINE 10 MG CARTRIDGE (INHALER) IH PRN (10:58)
[2022-01-19] MEDS: TOLNAFTATE 1% CREAM 15 GM TUBE TP SCH ×2 (10:59→22:53)
[2022-01-19] MEDS: NICOTINE 7 MG/24 HOURS TOPICAL PATCH TD SCH (10:59)
[2022-01-19] MEDS: PRENATAL VITAMINS W/ FOLIC ACID TABLET (FP) PO SCH (10:59)
[2022-01-19] MEDS: hydrOXYzine PAMOATE 25 MG CAPSULE (FP) PO PRN (16:38)
[2022-01-19] MEDS: ACETAMINOPHEN 325 MG TABLET (FP) PO PRN (16:38)
[2022-01-19] MEDS: MELATONIN 5 MG TABLETS PO SCH (22:53)
[2022-01-19] MEDS: THIAMINE HCL 100 MG TABLET (FP) PO SCH (22:53)
[2022-01-20] MEDS: DOCUSATE SODIUM 100 MG CAPSULE (FP) PO SCH ×4 (05:51→21:51)
[2022-01-20] MEDS: NICOTINE POLACRILEX 4 MG GUM BUC PRN ×5 (05:53→21:54)
[2022-01-20] MEDS: TOLNAFTATE 1% CREAM 15 GM TUBE TP SCH ×2 (10:08→21:37)
[2022-01-20] MEDS: PRENATAL VITAMINS W/ FOLIC ACID TABLET (FP) PO SCH (10:08)
[2022-01-20] MEDS: NICOTINE 7 MG/24 HOURS TOPICAL PATCH TD SCH (10:08)
[2022-01-20] MEDS: THIAMINE HCL 100 MG TABLET (FP) PO SCH ×2 (21:37→21:51)
[2022-01-20] MEDS: MELATONIN 5 MG TABLETS PO SCH ×2 (21:37→21:51)
[2022-01-21] MEDS: NICOTINE POLACRILEX 4 MG GUM BUC PRN ×5 (06:06→22:20)
[2022-01-21] MEDS: DOCUSATE SODIUM 100 MG CAPSULE (FP) PO SCH ×3 (06:08→22:20)
[2022-01-21] MEDS: PRENATAL VITAMINS W/ FOLIC ACID TABLET (FP) PO SCH (10:09)
[2022-01-21] MEDS: NICOTINE 7 MG/24 HOURS TOPICAL PATCH TD SCH (10:09)
[2022-01-21] MEDS: COLLOIDAL OATMEAL 1 BAR EACH TP PRN (10:10)
[2022-01-21] MEDS: TOLNAFTATE 1% CREAM 15 GM TUBE TP SCH ×2 (10:11→22:20)
[2022-01-21] MEDS: NICOTINE 10 MG CARTRIDGE (INHALER) IH PRN (12:44)
[2022-01-21] MEDS: THIAMINE HCL 100 MG TABLET (FP) PO SCH (22:20)
[2022-01-21] MEDS: MELATONIN 5 MG TABLETS PO SCH (22:20)
[2022-01-22] MEDS: DOCUSATE SODIUM 100 MG CAPSULE (FP) PO SCH ×3 (06:34→21:30)
[2022-01-22] MEDS: NICOTINE POLACRILEX 4 MG GUM BUC PRN ×4 (06:36→18:20)
[2022-01-22 06:46] VITALS: RESP 18
[2022-01-22] MEDS: NICOTINE 10 MG CARTRIDGE (INHALER) IH PRN (10:33)
[2022-01-22] MEDS: NICOTINE 7 MG/24 HOURS TOPICAL PATCH TD SCH (10:33)
[2022-01-22] MEDS: PRENATAL VITAMINS W/ FOLIC ACID TABLET (FP) PO SCH (10:33)
[2022-01-22] MEDS: TOLNAFTATE 1% CREAM 15 GM TUBE TP SCH ×2 (10:34→21:58)
[2022-01-22] MEDS: THIAMINE HCL 100 MG TABLET (FP) PO SCH (21:30)
[2022-01-22] MEDS: MELATONIN 5 MG TABLETS PO SCH (21:30)
[2022-01-22] MEDS: hydrOXYzine PAMOATE 25 MG CAPSULE (FP) PO PRN (21:31)
[2022-01-23] MEDS: DOCUSATE SODIUM 100 MG CAPSULE (FP) PO SCH ×3 (05:59→21:27)
[2022-01-23] MEDS: NICOTINE POLACRILEX 4 MG GUM BUC PRN ×4 (06:02→19:50)
[2022-01-23] MEDS: TOLNAFTATE 1% CREAM 15 GM TUBE TP SCH ×2 (09:14→21:28)
[2022-01-23] MEDS: PRENATAL VITAMINS W/ FOLIC ACID TABLET (FP) PO SCH (09:14)
[2022-01-23] MEDS: NICOTINE 7 MG/24 HOURS TOPICAL PATCH TD SCH (09:14)
[2022-01-23] MEDS: ACETAMINOPHEN 325 MG TABLET (FP) PO PRN (15:34)
[2022-01-23] MEDS: THIAMINE HCL 100 MG TABLET (FP) PO SCH (21:27)
[2022-01-23] MEDS: MELATONIN 5 MG TABLETS PO SCH (21:27)
[2022-01-23] MEDS: NICOTINE 10 MG CARTRIDGE (INHALER) IH PRN (21:28)
[2022-01-24] MEDS: DOCUSATE SODIUM 100 MG CAPSULE (FP) PO SCH (06:14)
[2022-01-24 06:49] VITALS: BP 133/84; PULSE 68; TEMP 97.7
[2022-01-24] MEDS: TOLNAFTATE 1% CREAM 15 GM TUBE TP SCH (09:24)
[2022-01-24] MEDS: NICOTINE 7 MG/24 HOURS TOPICAL PATCH TD SCH (09:24)
[2022-01-24] MEDS: PRENATAL VITAMINS W/ FOLIC ACID TABLET (FP) PO SCH (09:24)
== END 2022-01-24 10:04 | disposition home or self-care (01) | DRG 772 ==
LOC: YASAS 16:48 → Y3W 23:52
PROVIDERS: ADMIT Allergy & Immunology; ATTEND Psychiatry & Neurology Pain Medicine
PROC: HZ42ZZZ Group Counseling for Substance Abuse Treatment, Cognitive-Behavioral (ICD-10-PCS; principal; 2021-12-27)
DX: F10.20 Alcohol dependence, uncomplicated (principal); F11.20 Opioid dependence, uncomplicated; F12.10 Cannabis abuse, uncomplicated; F17.210 Nicotine dependence, cigarettes, uncomplicated; B18.1 Chronic viral hepatitis B without delta-agent; B18.2 Chronic viral hepatitis C; J45.909 Unspecified asthma, uncomplicated; Z86.69 Personal history of other diseases of the nervous system and sense organs; Z91.013 Allergy to seafood; Z59.00 Homelessness unspecified
CPT/HCPCS: 36415; 81003; 86780; 86803; 87522; C9803-CS; U0003; U0005

== ENCOUNTER 2023-06-15 11:17 | Inpatient (IN) | payer OTHER ==
[2023-06-15 11:51] VITALS: BMI 20.5
[2023-06-15] MEDS ORDERED: methaDONE HCL 40 MG DISPERSABLE TABLET PO SCH ×2 (12:30→15:30)
[2023-06-15] MEDS ORDERED: levETIRAcetam 500 MG TABLET (FP) PO ONE (14:18)
[2023-06-15] MEDS: levETIRAcetam 500 MG TABLET (FP) PO SCH (14:24)
[2023-06-15] MEDS: CLINDAMYCIN HCL 300 MG CAPSULE PO SCH (14:25)
[2023-06-15] MEDS ORDERED: LOPERAMIDE HCL 2 MG CAPSULE PO PRN (15:47)
[2023-06-15] MEDS ORDERED: NALOXONE HCL (KLOXXADO) 8 MG SPRAY NS PRN (15:47)
[2023-06-15] MEDS ORDERED: BENZONATATE 200 MG CAPSULE PO PRN (15:47)
[2023-06-15] MEDS ORDERED: NALOXONE HCL 0.4 MG/ML VIAL IM PRN (15:47)
[2023-06-15] MEDS ORDERED: guaiFENesin 600 MG TABLET.ER (FP) PO PRN (15:47)
[2023-06-15] MEDS ORDERED: BENZOCAINE/MENTHOL (CHLORASEPTIC ) LOZENGE MM PRN (15:47)
[2023-06-15] MEDS ORDERED: IBUPROFEN 600 MG TABLET (FP) PO PRN (15:47)
[2023-06-15] MEDS ORDERED: MAGNESIUM HYDROX 2400MG/30ML ORAL SUSPENSION 30 ML CUP PO PRN (15:47)
[2023-06-15] MEDS ORDERED: MAG HYDROX/AL HYDROX/SIMETH 30 ML UNIT-DOSE CUP PO PRN (15:47)
[2023-06-15] MEDS ORDERED: POLYETHYLENE GLYCOL (HEALTHYLAX) 3350 17 GM PACKET PO PRN (15:47)
[2023-06-15] MEDS ORDERED: P-EPHED 60MG/TRIPROLIDI 2.5MG TABLET PO PRN (15:47)
[2023-06-15] MEDS: CLINDAMYCIN HCL 150 MG CAPSULE (FP) PO SCH (17:59)
[2023-06-15] MEDS: NICOTINE POLACRILEX 2 MG GUM BUC PRN (18:02)
[2023-06-15] MEDS: THIAMINE HCL 100 MG TABLET (FP) PO SCH (21:47)
[2023-06-15] MEDS: MELATONIN 5 MG TABLETS PO SCH (21:48)
[2023-06-15] MEDS: BACITRACIN ZINC 15 GM TUBE TOPICAL OINTMENT TP SCH (22:02)
[2023-06-16 09:56] LABS: PH,URINE 5.5 (5.0-8.0); URINE APPEARANCE CLEAR; URINE BILIRUBIN NEGATIVE (NEGATIVE); URINE COLOR YELLOW; URINE GLUCOSE (UA) NEGATIVE (NEGATIVE); URINE KETONE NEGATIVE (NEGATIVE); URINE LEUK ESTERASE NEGATIVE (NEGATIVE); URINE NITRITE NEGATIVE (NEGATIVE); URINE PROTEIN NEGATIVE (NEGATIVE)
[2023-06-16 10:00] LABS: POTASSIUM 4.1 mmol/L (3.5-5.1)
[2023-06-16 10:04] LABS: HEMATOCRIT 37.7 % (35.4-49); HEMOGLOBIN 12.9 GM/dL (11.7-16.9); MCHC 34.2 g/dl (32.0-35.9); PLATELET COUNT 293 10^3/uL (134-434); RBC 4.77 M/mm3 (4.00-5.60); RDW 14.7 % (11.9-15.9); WHITE BLOOD COUNT 5.2 K/mm3 (4.0-10.0)
[2023-06-16] MEDS: PRENATAL VITAMINS W/ FOLIC ACID TABLET (FP) PO SCH (10:10)
[2023-06-16 10:13] LABS: CALCIUM 9.3 mg/dL (8.5-10.1)
[2023-06-16 10:14] LABS: ALBUMIN 3.5 g/dl (3.4-5.0); BLOOD UREA NITROGEN 14.9 mg/dL (7-18)
[2023-06-16 10:17] LABS: CREATININE 0.9 mg/dL (0.55-1.3)
[2023-06-16 10:19] LABS: BILIRUBIN,TOTAL 0.4 mg/dL (0.2-1)
[2023-06-16] MEDS ORDERED: NICOTINE POLACRILEX 2 MG GUM ONE (13:10)
[2023-06-17] MEDS: DOCUSATE SODIUM 100 MG CAPSULE (FP) PO PRN (09:11)
[2023-06-21] MEDS: CITALOPRAM HYDROBROMIDE 10 MG TABLET PO SCH (09:51)
[2023-06-24] MEDS: ACETAMINOPHEN 325 MG TABLET (FP) PO PRN (09:36)
[2023-06-24] MEDS: SELENIUM SULFIDE 2.25% 180 ML SHAMPOO TP SCH (13:52)
[2023-06-24] MEDS: TUBERCULIN PPD 5 TU/0.1ML VIAL ID ONE (13:53)
[2023-06-24] MEDS ORDERED: TUBERCULIN PPD 5 TU/0.1ML VIAL ID ONE (16:11)
[2023-06-24] MEDS: CLOTRIMAZOLE/BETAMET DIPROP 15 GM TUBE TP SCH (21:33)
[2023-06-25] MEDS: SELENIUM SULFIDE 2.25% 180 ML SHAMPOO TP SCH (10:24)
[2023-07-02] MEDS: IBUPROFEN 400 MG TABLET (FP) PO PRN (21:42)
[2023-07-04] MEDS: MELATONIN 5 MG TABLETS PO SCH (00:11)
[2023-07-04] MEDS: MIRTAZAPINE 15 MG TABLET (FP) PO SCH (21:40)
[2023-07-04] MEDS: NICOTINE POLACRILEX 4 MG GUM BUC PRN (22:06)
[2023-07-08] MEDS: KETOCONAZOLE 2 % SHAMPOO 120 ML BOTTLE TP SCH (10:53)
[2023-07-08] MEDS: GABAPENTIN 100 MG CAPSULE PO SCH (10:55)
[2023-07-09 07:17] VITALS: RESP 18
[2023-07-11 06:46] VITALS: BP 134/95; PULSE 67; TEMP 97.3
== END 2023-07-11 10:18 | disposition home or self-care (01) | DRG 772 ==
LOC: YASAS 11:17 → Y3E 15:52 → Y5N 06-22 16:54
PROVIDERS: ADMIT Allergy & Immunology; ATTEND Allergy & Immunology
PROC: HZ42ZZZ Group Counseling for Substance Abuse Treatment, Cognitive-Behavioral (ICD-10-PCS; principal; 2023-06-15)
DX: F14.20 Cocaine dependence, uncomplicated (principal); F11.20 Opioid dependence, uncomplicated; F13.20 Sedative, hypnotic or anxiolytic dependence, uncomplicated; F15.20 Other stimulant dependence, uncomplicated; F19.280 Other psychoactive substance dependence with psychoactive substance-induced anxiety disorder; F19.282 Other psychoactive substance dependence with psychoactive substance-induced sleep disorder; F41.9 Anxiety disorder, unspecified; F32.A Depression, unspecified; F90.0 Attention-deficit hyperactivity disorder, predominantly inattentive type; L21.0 Seborrhea capitis
CPT/HCPCS: 36415; 80053; 81003; 85027; 86780; 87635; 87811

== ENCOUNTER 2023-12-09 13:12 | Inpatient (IN) | payer OTHER ==
[2023-12-09 14:34] VITALS: BMI 30.8
[2023-12-09] MEDS ORDERED: METHOCARBAMOL 500 MG TABLET PO PRN (14:54)
[2023-12-09] MEDS ORDERED: ONDANSETRON *ODT* 4 MG TABLET SL PRN (14:54)
[2023-12-09] MEDS ORDERED: DICYCLOMINE HCL 10 MG CAPSULE PO PRN (14:54)
[2023-12-09] MEDS ORDERED: guaiFENesin 600 MG TABLET.ER (FP) PO PRN (14:54)
[2023-12-09] MEDS ORDERED: ACETAMINOPHEN 325 MG TABLET (FP) PO PRN (14:54)
[2023-12-09] MEDS ORDERED: MAGNESIUM HYDROX 2400MG/30ML ORAL SUSPENSION 30 ML CUP PO PRN (14:54)
[2023-12-09] MEDS ORDERED: IBUPROFEN 600 MG TABLET (FP) PO PRN (14:54)
[2023-12-09] MEDS ORDERED: LOPERAMIDE HCL 2 MG CAPSULE PO PRN (14:54)
[2023-12-09] MEDS ORDERED: POLYETHYLENE GLYCOL (HEALTHYLAX) 3350 17 GM PACKET PO PRN (14:54)
[2023-12-09] MEDS ORDERED: BISMUTH SUBSALICYLATE 262 MG/15 ML BTL PO PRN (14:54)
[2023-12-09] MEDS ORDERED: NICOTINE POLACRILEX 2 MG LOZENGE BC PRN (14:54)
[2023-12-09] MEDS ORDERED: MAG HYDROX/AL HYDROX/SIMETH 30 ML UNIT-DOSE CUP PO PRN (14:54)
[2023-12-09] MEDS ORDERED: NALOXONE (NARCAN) HCL 4 MG/0.1 ML SPRAY NS PRN (14:54)
[2023-12-09] MEDS ORDERED: IBUPROFEN 400 MG TABLET (FP) PO PRN (14:54)
[2023-12-09] MEDS ORDERED: BENZONATATE 200 MG CAPSULE PO PRN (14:54)
[2023-12-09] MEDS ORDERED: BENZOCAINE/MENTHOL (CHLORASEPTIC ) LOZENGE MM PRN (14:54)
[2023-12-09] MEDS ORDERED: NALOXONE HCL 0.4 MG/ML VIAL IM PRN (14:54)
[2023-12-09] MEDS ORDERED: ALBUTEROL SO4 HFA INHALER IH PRN (15:14)
[2023-12-09] MEDS: PRENATAL VITAMINS W/ FOLIC ACID TABLET (FP) PO SCH (16:04)
[2023-12-09] MEDS: NICOTINE 14 MG/24 HOURS TOPICAL PATCH TD SCH (16:04)
[2023-12-09] MEDS ORDERED: methaDONE HCL 10 MG TABLET (FOR DETOX USE ONLY) ONE (16:06)
[2023-12-09] MEDS ORDERED: hydrOXYzine PAMOATE 25 MG CAPSULE (FP) PO ONE (16:06)
[2023-12-09] MEDS ORDERED: NICOTINE 14 MG/24 HOURS TOPICAL PATCH TD ONE (16:07)
[2023-12-09] MEDS ORDERED: PRENATAL VITAMINS W/ FOLIC ACID TABLET (FP) PO ONE (16:07)
[2023-12-09] MEDS: methaDONE HCL 40 MG DISPERSABLE TABLET PO ONE (16:15)
[2023-12-09] MEDS: MELATONIN 5 MG TABLETS PO SCH (23:49)
[2023-12-09] MEDS: THIAMINE 100 MG TABLET PO SCH (23:49)
[2023-12-10] MEDS ORDERED: methaDONE HCL 10 MG TABLET PO ONE (09:04)
[2023-12-10] MEDS: NICOTINE POLACRILEX 2 MG GUM BUC PRN (09:38)
[2023-12-10] MEDS: diazePAM 5 MG TABLET PO SCH ×2 (10:23→18:58)
[2023-12-10 11:47] LABS: HEMATOCRIT 34.2 % (35.4-49); HEMOGLOBIN 11.7 GM/dL (11.7-16.9); MCH 27.5 pg (25.7-33.7); MCHC 34.2 g/dl (32.0-35.9); MEAN CELL VOLUME 80.6 fl (80-96); MEAN PLT VOLUME 9.6 fl (7.5-11.1); PLATELET COUNT 281 10^3/uL (134-434); RBC 4.24 M/mm3 (4.00-5.60); RDW 13.5 % (11.9-15.9); WHITE BLOOD COUNT 6.3 K/mm3 (4.0-10.0)
[2023-12-10 11:49] LABS: POTASSIUM 3.6 mmol/L (3.5-5.1)
[2023-12-10 11:53] LABS: CALCIUM 8.9 mg/dL (8.5-10.1)
[2023-12-10 11:54] LABS: ALBUMIN 3.5 g/dl (3.4-5.0); BLOOD UREA NITROGEN 16.3 mg/dL (7-18)
[2023-12-10 11:57] LABS: CREATININE 1.1 mg/dL (0.55-1.3)
[2023-12-10 11:58] LABS: BILIRUBIN,TOTAL 0.4 mg/dL (0.2-1); TOT PROT 6.5 g/dl (6.4-8.2)
[2023-12-11] MEDS: diazePAM 5 MG TABLET PO SCH (05:32)
[2023-12-11] MEDS ORDERED: methaDONE HCL 10 MG TABLET PO SCH (06:00)
[2023-12-11] MEDS: diazePAM 5 MG TABLET PO PRN (10:14)
[2023-12-12] MEDS: diazePAM 5 MG TABLET PO SCH (05:25)
[2023-12-13] MEDS: diazePAM 5 MG TABLET PO ONE (05:20)
[2023-12-13 06:16] VITALS: RESP 16
[2023-12-13] MEDS: hydrOXYzine PAMOATE 25 MG CAPSULE (FP) PO PRN (06:17)
[2023-12-13 09:30] VITALS: BP 125/69; PULSE 66; TEMP 96.8
== END 2023-12-13 13:40 | disposition other institution (70) | DRG 773 ==
LOC: YASAS 13:12 → Y6N 16:37
PROVIDERS: ADMIT Allergy & Immunology; ATTEND Surgery
PROC: HZ2ZZZZ Detoxification Services for Substance Abuse Treatment (ICD-10-PCS; principal; 2023-12-09)
DX: F13.230 Sedative, hypnotic or anxiolytic dependence with withdrawal, uncomplicated (principal); F14.20 Cocaine dependence, uncomplicated; F11.20 Opioid dependence, uncomplicated; F15.20 Other stimulant dependence, uncomplicated; F12.20 Cannabis dependence, uncomplicated; F17.210 Nicotine dependence, cigarettes, uncomplicated; F41.9 Anxiety disorder, unspecified; F32.A Depression, unspecified; J45.909 Unspecified asthma, uncomplicated; Z86.19 Personal history of other infectious and parasitic diseases
CPT/HCPCS: 36415; 80053; 80305; 80307; 85027; 86780; 87811; 93005; 93010

== ENCOUNTER 2023-12-13 13:50 | Inpatient (IN) | payer OTHER ==
[2023-12-13] MEDS ORDERED: POLYETHYLENE GLYCOL (HEALTHYLAX) 3350 17 GM PACKET PO PRN (14:56)
[2023-12-13] MEDS ORDERED: LOPERAMIDE HCL 2 MG CAPSULE PO PRN (14:56)
[2023-12-13] MEDS ORDERED: NALOXONE HCL 0.4 MG/ML VIAL IVPUSH PRN (14:56)
[2023-12-13] MEDS ORDERED: METHOCARBAMOL 500 MG TABLET PO PRN (14:56)
[2023-12-13] MEDS ORDERED: ACETAMINOPHEN 325 MG TABLET (FP) PO PRN (14:56)
[2023-12-13] MEDS ORDERED: BENZOCAINE/MENTHOL (CHLORASEPTIC ) LOZENGE MM PRN (14:56)
[2023-12-13] MEDS ORDERED: MAGNESIUM HYDROX 2400MG/30ML ORAL SUSPENSION 30 ML CUP PO PRN (14:56)
[2023-12-13] MEDS ORDERED: NALOXONE (NARCAN) HCL 4 MG/0.1 ML SPRAY NS PRN (14:56)
[2023-12-13] MEDS ORDERED: IBUPROFEN 400 MG TABLET (FP) PO PRN (14:56)
[2023-12-13] MEDS ORDERED: hydrOXYzine PAMOATE 25 MG CAPSULE (FP) PO PRN (14:56)
[2023-12-13] MEDS ORDERED: guaiFENesin 600 MG TABLET.ER (FP) PO PRN (14:56)
[2023-12-13] MEDS ORDERED: MAG HYDROX/AL HYDROX/SIMETH 30 ML UNIT-DOSE CUP PO PRN (14:56)
[2023-12-13] MEDS ORDERED: BENZONATATE 200 MG CAPSULE PO PRN (14:56)
[2023-12-13] MEDS: MELATONIN 5 MG TABLETS PO SCH (22:19)
[2023-12-13] MEDS: THIAMINE 100 MG TABLET PO SCH (22:19)
[2023-12-13] MEDS: NICOTINE POLACRILEX 2 MG GUM BUC PRN (22:27)
[2023-12-14] MEDS: PRENATAL VITAMINS W/ FOLIC ACID TABLET (FP) PO SCH (09:47)
[2023-12-14] MEDS ORDERED: methaDONE HCL 40 MG DISPERSABLE TABLET PO SCH (10:00)
[2023-12-16] MEDS: SELENIUM SULFIDE 2.25% 180 ML SHAMPOO TP SCH (14:49)
[2023-12-16] MEDS: NICOTINE POLACRILEX 4 MG GUM BUC PRN (20:00)
[2023-12-17] MEDS: IBUPROFEN 600 MG TABLET (FP) PO PRN (10:09)
[2023-12-17] MEDS: hydrOXYzine PAMOATE 25 MG CAPSULE (FP) PO PRN (14:27)
[2023-12-18] MEDS ORDERED: PRENATAL VITAMINS W/ FOLIC ACID TABLET (FP) PO PRN (12:14)
[2023-12-31] MEDS: DOCUSATE SODIUM 100 MG CAPSULE (FP) PO ONE (12:40)
[2024-01-05 07:05] VITALS: PULSE 66
[2024-01-05] MEDS: DOCUSATE SODIUM 100 MG CAPSULE (FP) PO PRN (09:50)
[2024-01-06 07:04] VITALS: BP 142/96; RESP 16; TEMP 97.3
== END 2024-01-06 09:23 | disposition home or self-care (01) | DRG 772 ==
LOC: YASAS 13:50 → Y3W 13:51
PROVIDERS: ADMIT Allergy & Immunology; ATTEND Psychiatry & Neurology Pain Medicine
PROC: HZ42ZZZ Group Counseling for Substance Abuse Treatment, Cognitive-Behavioral (ICD-10-PCS; principal; 2023-12-13)
DX: F10.20 Alcohol dependence, uncomplicated (principal); F11.20 Opioid dependence, uncomplicated; F13.20 Sedative, hypnotic or anxiolytic dependence, uncomplicated; F14.20 Cocaine dependence, uncomplicated; F15.20 Other stimulant dependence, uncomplicated; F12.20 Cannabis dependence, uncomplicated; F17.210 Nicotine dependence, cigarettes, uncomplicated; F19.982 Other psychoactive substance use, unspecified with psychoactive substance-induced sleep disorder; F19.980 Other psychoactive substance use, unspecified with psychoactive substance-induced anxiety disorder; F19.94 Other psychoactive substance use, unspecified with psychoactive substance-induced mood disorder; F41.9 Anxiety disorder, unspecified; F32.A Depression, unspecified; J45.909 Unspecified asthma, uncomplicated; B18.2 Chronic viral hepatitis C; K59.00 Constipation, unspecified; Z56.0 Unemployment, unspecified
CPT/HCPCS: 82962

== ENCOUNTER 2024-06-01 13:30 | Inpatient (IN) | payer OTHER ==
[2024-06-01 14:31] VITALS: BMI 16.0
[2024-06-01] MEDS ORDERED: MAGNESIUM HYDROX 2400MG/30ML ORAL SUSPENSION 30 ML CUP PO PRN (14:51)
[2024-06-01] MEDS ORDERED: METHOCARBAMOL 500 MG TABLET PO PRN (14:51)
[2024-06-01] MEDS ORDERED: ONDANSETRON *ODT* 4 MG TABLET SL PRN (14:51)
[2024-06-01] MEDS ORDERED: BENZOCAINE/MENTHOL (CHLORASEPTIC ) LOZENGE MM PRN (14:51)
[2024-06-01] MEDS ORDERED: DICYCLOMINE HCL 10 MG CAPSULE PO PRN (14:51)
[2024-06-01] MEDS ORDERED: MAG HYDROX/AL HYDROX/SIMETH 30 ML UNIT-DOSE CUP PO PRN (14:51)
[2024-06-01] MEDS ORDERED: hydrOXYzine PAMOATE 25 MG CAPSULE (FP) PO PRN (14:51)
[2024-06-01] MEDS ORDERED: LOPERAMIDE HCL 2 MG CAPSULE PO PRN (14:51)
[2024-06-01] MEDS ORDERED: BISMUTH SUBSALICYLATE 262 MG/15 ML BTL PO PRN (14:51)
[2024-06-01] MEDS ORDERED: ACETAMINOPHEN 325 MG TABLET (FP) PO PRN (14:51)
[2024-06-01] MEDS ORDERED: BENZONATATE 200 MG CAPSULE PO PRN (14:51)
[2024-06-01] MEDS ORDERED: NALOXONE (NARCAN) HCL 4 MG/0.1 ML SPRAY NS PRN (14:51)
[2024-06-01] MEDS ORDERED: IBUPROFEN 400 MG TABLET (FP) PO PRN (14:51)
[2024-06-01] MEDS ORDERED: IBUPROFEN 600 MG TABLET (FP) PO PRN (14:51)
[2024-06-01] MEDS ORDERED: POLYETHYLENE GLYCOL (HEALTHYLAX) 3350 17 GM PACKET PO PRN (14:51)
[2024-06-01] MEDS ORDERED: guaiFENesin 600 MG TABLET.ER (FP) PO PRN (14:51)
[2024-06-01] MEDS: MELATONIN 5 MG TABLETS PO SCH (21:54)
[2024-06-01] MEDS: THIAMINE 100 MG TABLET PO SCH (21:54)
[2024-06-01] MEDS: levETIRAcetam 500 MG TABLET (FP) PO SCH (21:54)
[2024-06-02] MEDS ORDERED: methaDONE HCL 10 MG TABLET PO ONE (09:00)
[2024-06-02] MEDS: PRENATAL VITAMINS W/ FOLIC ACID TABLET (FP) PO SCH (09:44)
[2024-06-02] MEDS ORDERED: LORazepam 1 MG TABLET PO PRN (13:03)
[2024-06-02] MEDS: LORazepam 1 MG TABLET PO SCH (17:45)
[2024-06-03] MEDS ORDERED: methaDONE HCL 10 MG TABLET PO SCH (06:00)
[2024-06-03] MEDS: LORazepam 0.5 MG TABLET PO SCH (06:04)
[2024-06-03] MEDS: NALOXONE (NYS OPIOID OVERDOSE PROGRAM) 4 MG/0.1 ML SPRAY NS SCH (09:41)
[2024-06-04] MEDS: LORazepam 0.5 MG TABLET PO ONE (05:55)
[2024-06-05 14:14] VITALS: BP 105/65; PULSE 58; RESP 15; TEMP 98.7
== END 2024-06-05 15:00 | disposition other institution (70) | DRG 773 ==
LOC: YASAS 13:30 → Y6N 15:26
PROVIDERS: ADMIT Allergy & Immunology; ATTEND Allergy & Immunology
PROC: HZ2ZZZZ Detoxification Services for Substance Abuse Treatment (ICD-10-PCS; principal; 2024-06-01)
DX: F13.230 Sedative, hypnotic or anxiolytic dependence with withdrawal, uncomplicated (principal); F11.20 Opioid dependence, uncomplicated; F14.20 Cocaine dependence, uncomplicated; F15.20 Other stimulant dependence, uncomplicated; F17.213 Nicotine dependence, cigarettes, with withdrawal; F19.280 Other psychoactive substance dependence with psychoactive substance-induced anxiety disorder; F19.282 Other psychoactive substance dependence with psychoactive substance-induced sleep disorder; F19.24 Other psychoactive substance dependence with psychoactive substance-induced mood disorder; B18.1 Chronic viral hepatitis B without delta-agent; B18.2 Chronic viral hepatitis C; Z56.0 Unemployment, unspecified; Z59.02 Unsheltered homelessness
CPT/HCPCS: 80305; 80307; 87811; 93005; 93010

== ENCOUNTER 2024-12-22 11:25 | Inpatient (IN) | payer OTHER ==
[2024-12-22 12:47] VITALS: BMI 18.6
[2024-12-22] MEDS ORDERED: IBUPROFEN 400 MG TABLET (FP) PO PRN (12:51)
[2024-12-22] MEDS ORDERED: POLYETHYLENE GLYCOL (HEALTHYLAX) 3350 17 GM PACKET PO PRN (12:51)
[2024-12-22] MEDS ORDERED: guaiFENesin 600 MG TABLET.ER (FP) PO PRN (12:51)
[2024-12-22] MEDS ORDERED: ACETAMINOPHEN 325 MG TABLET (FP) PO PRN (12:51)
[2024-12-22] MEDS ORDERED: LOPERAMIDE HCL 2 MG CAPSULE PO PRN (12:51)
[2024-12-22] MEDS ORDERED: NALOXONE (NARCAN) HCL 4 MG/0.1 ML SPRAY NS PRN (12:51)
[2024-12-22] MEDS ORDERED: ONDANSETRON *ODT* 4 MG TABLET SL PRN (12:51)
[2024-12-22] MEDS ORDERED: BENZOCAINE/MENTHOL (CHLORASEPTIC ) LOZENGE MM PRN (12:51)
[2024-12-22] MEDS ORDERED: BISMUTH SUBSALICYLATE 524 MG/30 ML PO PRN (12:51)
[2024-12-22] MEDS ORDERED: DICYCLOMINE HCL 10 MG CAPSULE PO PRN (12:51)
[2024-12-22] MEDS ORDERED: MAG HYDROX/AL HYDROX/SIMETH 30 ML UNIT-DOSE CUP PO PRN (12:51)
[2024-12-22] MEDS ORDERED: MAGNESIUM HYDROX 2400MG/30ML ORAL SUSPENSION 30 ML CUP PO PRN (12:51)
[2024-12-22] MEDS ORDERED: BENZONATATE 200 MG CAPSULE PO PRN (12:51)
[2024-12-22] MEDS ORDERED: levETIRAcetam 500 MG TABLET (FP) PO ONE (14:26)
[2024-12-22] MEDS: levETIRAcetam 500 MG TABLET (FP) PO SCH (14:29)
[2024-12-22] MEDS: THIAMINE 100 MG TABLET PO SCH (22:08)
[2024-12-22] MEDS: MELATONIN 5 MG TABLETS PO SCH (22:08)
[2024-12-23] MEDS: PRENATAL VITAMINS W/ FOLIC ACID TABLET (FP) PO SCH (10:07)
[2024-12-23 10:36] LABS: MCHC 30.4 g/dl (32.3-36.5); MEAN CELL VOLUME 78.2 fl (79.0-92.2); MEAN PLT VOLUME 11.1 fl (9.4-12.4); RDW 15.8 % (12.0-15.6)
[2024-12-23 10:51] LABS: CO2 34.0 mmol/L (21-32); GLUCOSE,RANDOM 146.0 mg/dL (74-106)
[2024-12-23 10:54] LABS: CREATININE 0.8 mg/dL (0.55-1.3); SGOT/AST 10.0 U/L (15-37); SGPT/ALT 16.0 U/L (13-61)
[2024-12-23 10:56] LABS: TOT PROT 6.6 g/dl (6.4-8.2)
[2024-12-23 10:57] LABS: ALK PHOS 115.0 U/L (45-117)
[2024-12-23] MEDS: NICOTINE POLACRILEX 2 MG GUM BUC PRN (19:57)
[2024-12-25] MEDS: NICOTINE POLACRILEX 2 MG LOZENGE BC PRN (05:12)
[2024-12-25] MEDS: BACLOFEN 10 MG TABLET (FP) PO PRN (09:44)
[2024-12-26] MEDS: HYDROCORTISONE 0.5% TOPICAL CREAM 30 GM TUBE TP ONE (15:15)
[2024-12-26] MEDS: IBUPROFEN 600 MG TABLET (FP) PO PRN (22:13)
[2024-12-27 06:13] VITALS: RESP 16
[2024-12-27 09:02] VITALS: BP 117/74; PULSE 69; TEMP 97.1
== END 2024-12-27 09:15 | disposition other institution (70) | DRG 773 ==
LOC: YASAS 11:25 → Y3N 14:23
PROVIDERS: ADMIT Neuromusculoskeletal Medicine & OMM; ATTEND Allergy & Immunology
PROC: HZ2ZZZZ Detoxification Services for Substance Abuse Treatment (ICD-10-PCS; principal; 2024-12-22)
DX: F11.23 Opioid dependence with withdrawal (principal); F14.20 Cocaine dependence, uncomplicated; F41.8 Other specified anxiety disorders; F15.20 Other stimulant dependence, uncomplicated; Z59.00 Homelessness unspecified; J45.909 Unspecified asthma, uncomplicated
CPT/HCPCS: 36415; 80053; 80305; 80307; 85027; 86780; 93005; 93010; J0475

== ENCOUNTER 2025-02-01 16:05 | Inpatient (IN) | payer OTHER ==
[2025-02-01 17:40] VITALS: BMI 25.2
[2025-02-01] MEDS ORDERED: LOPERAMIDE HCL 2 MG CAPSULE PO PRN (18:17)
[2025-02-01] MEDS ORDERED: NICOTINE POLACRILEX 2 MG LOZENGE BC PRN (18:17)
[2025-02-01] MEDS ORDERED: BENZOCAINE/MENTHOL (CHLORASEPTIC ) LOZENGE MM PRN (18:17)
[2025-02-01] MEDS ORDERED: BENZONATATE 200 MG CAPSULE PO PRN (18:17)
[2025-02-01] MEDS ORDERED: MAGNESIUM HYDROX 2400MG/30ML ORAL SUSPENSION 30 ML CUP PO PRN (18:17)
[2025-02-01] MEDS ORDERED: NALOXONE (NARCAN) HCL 4 MG/0.1 ML SPRAY NS PRN (18:17)
[2025-02-01] MEDS ORDERED: MAG HYDROX/AL HYDROX/SIMETH 30 ML UNIT-DOSE CUP PO PRN (18:17)
[2025-02-01] MEDS ORDERED: DICYCLOMINE HCL 10 MG CAPSULE PO PRN (18:17)
[2025-02-01] MEDS ORDERED: POLYETHYLENE GLYCOL (HEALTHYLAX) 3350 17 GM PACKET PO PRN (18:17)
[2025-02-01] MEDS ORDERED: BISMUTH SUBSALICYLATE 524 MG/30 ML PO PRN (18:17)
[2025-02-01] MEDS ORDERED: guaiFENesin 600 MG TABLET.ER (FP) PO PRN (18:17)
[2025-02-01] MEDS ORDERED: IBUPROFEN 600 MG TABLET (FP) PO PRN (18:17)
[2025-02-01] MEDS ORDERED: IBUPROFEN 400 MG TABLET (FP) PO PRN (18:17)
[2025-02-01] MEDS ORDERED: ONDANSETRON *ODT* 4 MG TABLET SL PRN (18:17)
[2025-02-01] MEDS: THIAMINE 100 MG TABLET PO SCH (22:30)
[2025-02-01] MEDS: MELATONIN 5 MG TABLETS PO SCH (22:30)
[2025-02-01] MEDS: METHOCARBAMOL 500 MG TABLET PO PRN (22:30)
[2025-02-01] MEDS: levETIRAcetam 500 MG TABLET (FP) PO SCH (22:30)
[2025-02-02] MEDS: NICOTINE POLACRILEX 2 MG GUM BUC PRN (06:13)
[2025-02-02] MEDS: hydrOXYzine PAMOATE 25 MG CAPSULE (FP) PO PRN (09:49)
[2025-02-02] MEDS: PRENATAL VITAMINS W/ FOLIC ACID TABLET (FP) PO SCH (09:49)
[2025-02-02 11:52] LABS: MCHC 30.6 g/dl (32.3-36.5); MEAN CELL VOLUME 82.3 fl (79.0-92.2); MEAN PLT VOLUME 11.0 fl (9.4-12.4); RDW 15.5 % (12.0-15.6)
[2025-02-02 12:00] LABS: GLUCOSE,RANDOM 114 mg/dL (74-106); TOT PROT 6.2 g/dl (6.4-8.2)
[2025-02-02 12:01] LABS: CO2 27 mmol/L (21-32)
[2025-02-02 12:03] LABS: ALK PHOS 88 U/L (40-150)
[2025-02-02 12:05] LABS: SGOT/AST 20 U/L (5-34); SGPT/ALT 23 U/L (0-55)
[2025-02-02 12:06] LABS: CREATININE 0.64 mg/dL (0.55-1.3)
[2025-02-02] MEDS: MINERAL OIL/PETROLAT/WATER TOPICAL CREAM 454 GM JAR TP SCH (22:37)
[2025-02-04] MEDS: NICOTINE POLACRILEX 2 MG GUM BUC PRN ×2 (11:02→20:54)
[2025-02-04] MEDS: ACETAMINOPHEN 325 MG TABLET (FP) PO PRN (20:53)
[2025-02-05] MEDS: hydrOXYzine PAMOATE 50 MG CAPSULE (FP) PO PRN (07:14)
[2025-02-05 12:41] VITALS: BP 145/83; PULSE 85; RESP 14; TEMP 96.9
== END 2025-02-05 13:25 | disposition other institution (70) | DRG 773 ==
LOC: YASAS 16:05 → Y3N 20:47
PROVIDERS: ADMIT Neuromusculoskeletal Medicine & OMM; ATTEND Student in an Organized Health Care Education/Training Program
PROC: HZ2ZZZZ Detoxification Services for Substance Abuse Treatment (ICD-10-PCS; principal; 2025-02-01)
DX: F13.230 Sedative, hypnotic or anxiolytic dependence with withdrawal, uncomplicated (principal); F11.20 Opioid dependence, uncomplicated; F14.20 Cocaine dependence, uncomplicated; F15.20 Other stimulant dependence, uncomplicated; F17.298 Nicotine dependence, other tobacco product, with other nicotine-induced disorders; J45.909 Unspecified asthma, uncomplicated; B18.2 Chronic viral hepatitis C
CPT/HCPCS: 36415; 80053; 80307; 85027; 86780; 87811; 93005; 93010

== ENCOUNTER 2025-02-05 13:27 | Inpatient (IN) | payer OTHER ==
[2025-02-05] MEDS ORDERED: guaiFENesin 600 MG TABLET.ER (FP) PO PRN (15:30)
[2025-02-05] MEDS ORDERED: BENZOCAINE/MENTHOL (CHLORASEPTIC ) LOZENGE MM PRN (15:30)
[2025-02-05] MEDS ORDERED: MAG HYDROX/AL HYDROX/SIMETH 30 ML UNIT-DOSE CUP PO PRN (15:30)
[2025-02-05] MEDS ORDERED: BENZONATATE 200 MG CAPSULE PO PRN (15:30)
[2025-02-05] MEDS ORDERED: NICOTINE POLACRILEX 2 MG LOZENGE BC PRN (15:30)
[2025-02-05] MEDS ORDERED: POLYETHYLENE GLYCOL (HEALTHYLAX) 3350 17 GM PACKET PO PRN (15:30)
[2025-02-05] MEDS ORDERED: LOPERAMIDE HCL 2 MG CAPSULE PO PRN (15:30)
[2025-02-05] MEDS ORDERED: MAGNESIUM HYDROX 2400MG/30ML ORAL SUSPENSION 30 ML CUP PO PRN (15:30)
[2025-02-05] MEDS: NICOTINE POLACRILEX 2 MG GUM BUC PRN (19:12)
[2025-02-05] MEDS: THIAMINE 100 MG TABLET PO SCH (22:48)
[2025-02-05] MEDS: MELATONIN 5 MG TABLETS PO SCH (22:48)
[2025-02-05] MEDS: levETIRAcetam 500 MG TABLET (FP) PO SCH (22:48)
[2025-02-06] MEDS: PRENATAL VITAMINS W/ FOLIC ACID TABLET (FP) PO SCH (05:24)
[2025-02-06] MEDS: ACETAMINOPHEN 325 MG TABLET (FP) PO PRN (09:53)
[2025-02-06] MEDS: METHOCARBAMOL 500 MG TABLET PO PRN (21:36)
[2025-02-06] MEDS: IBUPROFEN 600 MG TABLET (FP) PO PRN (21:36)
[2025-02-07] MEDS: hydrOXYzine PAMOATE 25 MG CAPSULE (FP) PO PRN (21:51)
[2025-02-08] MEDS: VITAMINS A AND D TOPICAL OINTMENT TP SCH (13:00)
[2025-02-08] MEDS: GABAPENTIN 100 MG CAPSULE PO SCH (14:25)
[2025-02-08] MEDS: NICOTINE POLACRILEX 2 MG GUM BUC PRN (14:25)
[2025-02-08] MEDS: MIRTAZAPINE 15 MG TABLET (FP) PO SCH (21:18)
[2025-02-08] MEDS: DOCUSATE SODIUM 100 MG CAPSULE (FP) PO PRN (21:20)
[2025-02-11] MEDS ORDERED: NICOTINE POLACRILEX 2 MG GUM BUC PRN (08:47)
[2025-02-11] MEDS: NICOTINE POLACRILEX 4 MG GUM BUC PRN (10:11)
[2025-02-13] MEDS: NICOTINE POLACRILEX 4 MG LOZENGE BC PRN (14:57)
[2025-02-17] MEDS: HYDROCORTISONE 1% TOPICAL CREAM 30 GM TUBE TP PRN (10:38)
[2025-02-22] MEDS ORDERED: BENZOCAINE 20 % GEL TUBE MM PRN (12:39)
[2025-02-22] MEDS: AMOX TR/POT CLAV 875MG/125MG TABLETS (FP) PO SCH (16:33)
[2025-02-23 05:56] VITALS: RESP 16
[2025-02-23] MEDS: IBUPROFEN 400 MG TABLET (FP) PO PRN (06:00)
[2025-03-01 05:50] VITALS: BP 112/83; PULSE 71; TEMP 97.5
== END 2025-03-01 09:50 | disposition home or self-care (01) | DRG 772 ==
LOC: YASAS 13:27 → Y3NR 13:28 → Y3W 02-08 09:59
PROVIDERS: ADMIT Psychiatry & Neurology Pain Medicine; ATTEND Psychiatry & Neurology Pain Medicine
PROC: HZ42ZZZ Group Counseling for Substance Abuse Treatment, Cognitive-Behavioral (ICD-10-PCS; principal; 2025-02-05)
DX: F11.20 Opioid dependence, uncomplicated (principal); F14.20 Cocaine dependence, uncomplicated; F13.20 Sedative, hypnotic or anxiolytic dependence, uncomplicated; F12.20 Cannabis dependence, uncomplicated; G40.909 Epilepsy, unspecified, not intractable, without status epilepticus; K59.00 Constipation, unspecified; R21 Rash and other nonspecific skin eruption; J45.909 Unspecified asthma, uncomplicated; F17.210 Nicotine dependence, cigarettes, uncomplicated
CPT/HCPCS: 73610-TC-LT-FY; 73630-TC-LT